=== PATIENT | female | born 1985 | race African-American/Black ===

== ENCOUNTER 2016-10-28 16:24 | Emergency (ER) | payer SELFPAY ==
[~2016-10-28] VITALS: Ht 162.6 cm; Wt 135.0 kg
[2016-10-28 16:25] VITALS: BP 174/104; PULSE 110; RESP 16; TEMP 98.5; O2SAT 98
[2016-10-28] MEDS ORDERED: SODIUM CHLOR 0.9% 1000 ML INJ 1,000 ML IV SCH (17:10)
[2016-10-28] MEDS ORDERED: HYDROmorphone HCL PF 1 MG/ML VIAL IVS ONE (17:15)
[2016-10-28] MEDS ORDERED: PROMETHAZINE INJ 25 MG/ML VIAL IM ONE (17:15)
[2016-10-28] MEDS ORDERED: diphenhydrAMINE HCL 50 MG/ML VIAL IV PUSH ONE ×2 (17:15→19:15)
[2016-10-28 17:34] VITALS: RESP 18; O2SAT 99
--- NOTE | 2016-10-28 17:44 | PD ---
HPI Chief Complaint: Abdominal Pain Time Seen by Provider: 17:40 Travel History International Travel<30 days: No Contact w/Intl Traveler<30days: No Traveled to known affect area: No History of Present Illness HPI 31-year-old female that presents to the ED for evaluation of abdominal pain, nausea vomiting and diarrhea. Per patient she has an extensive history of Crohn 's disease and takes Humira for this. Per patient she gets injections. She is to get infusions and she still has a port. She states that she recently moved to [facility] about 2 weeks ago. Per patient the past 2-3 days she's been having the nausea and vomiting and diarrhea. She has a history of surgery and resection to her bowels having had an ileostomy tube placed after she had an infection to the colon With a colostomy. She states that she has had extensive surgeries including her appendix and gallbladder removed. She has had 2 bowel resections in the past. She states that her bowels are usually more solid than what they are another just water. She states that she's having nausea and vomiting. She chronically takes Dilaudid and Phenergan by mouth but she's not been able to keep it down. She states that she just throws it out. She states that she has no doctor in the area she recently moved. Per patient her pain is 10 out of 10. Mainly in the epigastric area. No recent injuries. No fevers chills or sweats. No recent travel. No new foods. PFSH Past Medical History Anemia: Yes Gastrointestinal Disorders: Yes (Chrons, ileustomy after colostomy reversal) Implanted Vascular Access Dvce: Yes (Rt upper chest) Sleep Apnea: Yes ?: Not LMP: 10/08/16 Past Surgical History Appendectomy: Yes Cholecystectomy: Yes Social History Alcohol Use: No Tobacco Use: No Substance Use: No Allergies-Medications (Allergen,Severity, Reaction): Coded Allergies: Morphine (Verified Allergy, Severe, 10/28/16) Reglan (Verified Allergy, Severe, 10/28/16) Zofran (Verified Allergy, Severe, 10/28/16) Review of Systems Except as stated in HPI: all other systems reviewed are Neg Physical Exam Narrative GENERAL: SKIN: Warm and dry. HEAD: Atraumatic. Normocephalic. EYES: Pupils equal and round. No scleral icterus. No injection or drainage. ENT: No nasal bleeding or discharge. Mucous membranes pink and moist. Tongue is midline. No uvula deviation. NECK: Trachea midline. No JVD. CARDIOVASCULAR: Regular rate and rhythm. No murmurs, S3, S4. RESPIRATORY: No accessory muscle use. Clear to auscultation. Breath sounds equal bilaterally. GASTROINTESTINAL: Abdomen soft, patient has an ileostomy bag on the abdomen noted, very tender to palpation especially on the epigastric area, nondistended. Hepatic and splenic margins not palpable. MUSCULOSKELETAL: Extremities without clubbing, cyanosis, or edema. No obvious deformities. Full range of motion of the upper and lower extremities bilaterally. 2+ pulses bilaterally. NEUROLOGICAL: Awake and alert. No obvious cranial nerve deficits. Motor grossly within normal limits. Five out of 5 muscle strength in the arms and legs. Normal speech. PSYCHIATRIC: Appropriate mood and affect; insight and judgment normal. Data Data Last Documented VS Vital Signs Date Time Temp Pulse Resp B/P Pulse Ox O2 Delivery O2 Flow Rate FiO2 10/28/16 17:35 18 10/28/16 17:34 99 Room Air 10/28/16 16:25 98.5 110 174/104 Orders Complete Blood Count With Diff (10/28/16 17:10) Comprehensive Metabolic Panel (10/28/16 17:10) Lipase (10/28/16 17:10) Lactic Acid (10/28/16 17:10) Prothrombin Time / Inr (Pt) (10/28/16 17:10) Act Partial Throm Time (Ptt) (10/28/16 17:10) Urinalysis - C+S If Indicated (10/28/16 17:10) Iv Access Insert/Monitor (10/28/16 17:10) Ecg Monitoring (10/28/16 17:10) Oximetry (10/28/16 17:10) Sodium Chlor 0.9% 1000 Ml Inj (Ns 1000 M (10/28/16 17:10) Hydromorphone Pf Inj (Dilaudid Pf Inj) (10/28/16 17:15) Ed Urine Pregnancytest Poc (10/28/16 17:10) Promethazine Inj (Phenergan Inj) (10/28/16 17:15) Diphenhydramine Inj (Benadryl Inj) (10/28/16 17:15) Abdomen, Flat & Upright (10/28/16 ) Labs Laboratory Tests Test 7/22/17 7/22/17 17:20 17:25 White Blood Count 9.0 TH/MM3 Red Blood Count 3.71 MIL/MM3 Hemoglobin 9.1 GM/DL Hematocrit 28.3 % Mean Corpuscular Volume 76.2 FL Mean Corpuscular Hemoglobin 24.6 PG Mean Corpuscular Hemoglobin 32.3 % Concent Red Cell Distribution Width 16.8 % Platelet Count 307 TH/MM3 Mean Platelet Volume 8.6 FL Neutrophils (%) (Auto) 70.3 % Lymphocytes (%) (Auto) 20.1 % Monocytes (%) (Auto) 7.5 % Eosinophils (%) (Auto) 1.7 % Basophils (%) (Auto) 0.4 % Neutrophils # (Auto) 6.3 TH/MM3 Lymphocytes # (Auto) 1.8 TH/MM3 Monocytes # (Auto) 0.7 TH/MM3 Eosinophils # (Auto) 0.1 TH/MM3 Basophils # (Auto) 0.0 TH/MM3 CBC Comment DIFF FINAL Differential Comment Prothrombin Time 10.5 SEC Prothromb Time International 1.0 RATIO Ratio Activated Partial 28.2 SEC Thromboplast Time Urine Color YELLOW Urine Turbidity CLEAR Urine pH 5.5 Urine Specific [place] 1.022 Urine Protein NEG mg/dL Urine Glucose (UA) NEG mg/dL Urine Ketones NEG mg/dL Urine Occult Blood NEG Urine Nitrite NEG Urine Bilirubin NEG Urine Urobilinogen LESS THAN 2.0 MG/DL Urine Leukocyte Esterase NEG Urine RBC LESS THAN 1 /hpf Urine WBC LESS THAN 1 /hpf Urine Squamous Epithelial 1 /hpf Cells Urine Mucus FEW /lpf Microscopic Urinalysis Comment CULT NOT INDICATED Sodium Level 141 MEQ/L Potassium Level 3.7 MEQ/L Chloride Level 108 MEQ/L Carbon Dioxide Level 24.8 MEQ/L Anion Gap 8 MEQ/L Blood Urea Nitrogen 6 MG/DL Creatinine 0.68 MG/DL Estimat Glomerular Filtration 121 ML/MIN Rate Random Glucose 107 MG/DL Calcium Level 8.3 MG/DL Total Bilirubin 0.2 MG/DL Aspartate Amino Transf 21 U/L (AST/SGOT) Alanine Aminotransferase 28 U/L (ALT/SGPT) Alkaline Phosphatase 83 U/L Total Protein 7.2 GM/DL Albumin 2.8 GM/DL Lipase 81 U/L Lactic Acid Level 1.6 mmol/L [facility] Medical Decision Making Medical Screen Exam Complete: Yes Emergency Medical Condition: Yes Medical Record Reviewed: Yes Interpretation(s) Last Impressions Abdomen X-Ray 10/28/16 0000 Signed Impressions: Service Date/Time: Sunday, October 28, 2016 18:38 - CONCLUSION: No acute abnormalities. No dilated bowel loops. Nicolas Vela MD CBC & BMP Diagram 10/28/16 17:20 LFTS and lipase WNL UA negative lactic acid WNL Differential Diagnosis Crohn's flareup versus acute abdomen versus obstruction versus gastroenteritis versus sepsis versus ischemia versus gastritis Narrative Course 31-year-old female that presents to the ED for evaluation of abdominal pain, nausea vomiting and diarrhea. Patient was properly examined and was found to have signs and symptoms concerning for possible obstruction versus acute disease. Patient does have a significant history including being on immunosuppressants for her Crohn's disease. At this time I recommend labs and imaging. Patient is in agreement with this plan. Patient was given IV medications and antiemetics. Labs and imaging showed no sign of acute disease. Patient was reassured. She declined CT due to risk of radiation and multiple prior CTs. She will be discharged home with emilee and tootie. Given prescription for phenergan. Follow up with PCP. See ED if worst. Diagnosis Primary Impression: Abdominal pain Qualified Code: R10.84 - Generalized abdominal pain Additional Impression: Gastroenteritis Patient Instructions: General Instructions, Narcotic given in the ED Additional Instructions: Take meds as prescribed. Follow up with PCP. See ED if worsening symptoms. Med/Other Pt SpecificInfo: Prescription(s) given Disposition: DISCHARGE HOME Condition: Stable Gomez Masterson Oct 28, 2016 17:44
[2016-10-28 17:45] LABS: AUTOMATED NEUTROPHIL # 6.3 TH/MM3 (1.8-7.7); BASOPHIL % 0.4 % (0.0-2.0); EOSINOPHIL # 0.1 TH/MM3 (0-0.4); EOSINOPHIL % 1.7 % (0.0-4.0); HEMATOCRIT 28.3 % (35.0-46.0); HEMO FLAGS DIFF FINAL; LYMPH % 20.1 % (9.0-44.0); LYMPHOCYTE # 1.8 TH/MM3 (1.0-4.8); MEAN CELL VOLUME 76.2 FL (80.0-100.0); MEAN CORPUSCULAR HEMOGLOBIN 24.6 PG (27.0-34.0); MEAN CORPUSCULAR HGB CONC 32.3 % (32.0-36.0); MONO % 7.5 % (0.0-8.0); NEUT % 70.3 % (16.0-70.0); PLATELET COUNT 307 TH/MM3 (150-450); RED BLOOD COUNT 3.71 MIL/MM3 (4.00-5.30); RED CELL DISTRIBUTION WIDTH 16.8 % (11.6-17.2)
[2016-10-28 17:52] LABS: APTT (PATIENT) 28.2 SEC (24.3-30.1); PROTHROMBIN TIME - PATIENT 10.5 SEC (9.8-11.6)
[2016-10-28 18:12] LABS: BLOOD, URINE NEG (NEG); COMMENT (UR) CULT NOT INDICATED; CULTURE IF INDICATED CULT NOT INDICATED; GLUCOSE,URINE NEG (NEG); KETONE, URINE NEG (NEG); MUCUS URINE FEW /lpf (OCC); NITRITE,URINE NEG (NEG); PH, URINE 5.5 (5.0-8.5); SQUAMOUS EPITHELIAL CELL URINE 1 /hpf (0-5); URINE COLOR YELLOW (YELLW/STRAW)
[2016-10-28 18:14] LABS: ALT (GPT) 28 U/L (10-53); ANION GAP 8 MEQ/L (5-15); AST (GOT) 21 U/L (15-37); BICARBONATE 24.8 MEQ/L (21.0-32.0); BLOOD UREA NITROGEN 6 MG/DL (7-18); CHLORIDE 108 MEQ/L (98-107); GLOMERULAR FILTRATION RATE 121 ML/MIN (>89); POTASSIUM 3.7 MEQ/L (3.5-5.1); SODIUM (NA) 141 MEQ/L (136-145)
[2016-10-28 18:16] LABS: ALKALINE PHOSPHATASE 83 U/L (45-117); TOTAL BILIRUBIN ADULT 0.2 MG/DL (0.2-1.0)
--- NOTE | 2016-10-28 18:57 | RADRPT ---
EXAM DATE/TIME: 10/28/2016 18:38 [facility] COMPARISON: No previous studies available for comparison. INDICATIONS : Abdominal pain and vomiting. MEDICAL HISTORY : Crohn's disease. SURGICAL HISTORY : Appendectomy. Ileostomy. infusaport. Colon resection. ENCOUNTER: Initial ACUITY: 2 days PAIN SCORE: 10/10 LOCATION: Bilateral Abdomen. FINDINGS: Supine and upright views of the abdomen were performed. Right quadrant ostomy. Postsurgical changes l eft abdomen. The abdominal bowel gas pattern is normal. No air fluid levels are seen. No abnormal m asses, calcifications, or organomegaly is seen. The visualized lower lungs are clear. No evidence o f free intraperitoneal gas. The osseous structures are unremarkable. CONCLUSION: No acute abnormalities. No dilated bowel loops. Nicolas Vela MD on October 28, 2016 at 18:55 Board Certified Radiologist. This report was verified electronically.
[2016-10-28] MEDS ORDERED: DICY10 PO (19:08)
[2016-10-28] MEDS ORDERED: PROM25TA10 PO (19:08)
[2016-10-28] MEDS ORDERED: METR-1 PO (19:08)
[2016-10-28] MEDS ORDERED: HYDROmorphone HCL PF 1 MG/ML VIAL IV PUSH ONE (19:15)
[2016-10-28] MEDS ORDERED: SODIUM CHLORIDE 0.9% FLUSH 10 ML FLUSH IVF PRN (19:15)
[2016-10-28] MEDS ORDERED: FLUC150T PO (19:45)
== END 2016-10-28 20:08 | disposition home or self-care (01) ==
LOC: NEPE 16:24
DX: K50.90 Crohn's disease, unspecified, without complications (principal)
CPT/HCPCS: 74020; 80053; 81001; 83605; 83690; 84703; 85025; 85610; 85730; 96361; 96372; 96374; 96375; 99284; J1170; J1200; J1642; J2550; J7030

== ENCOUNTER 2017-01-30 14:07 | Emergency (ER) | payer BC ==
[~2017-01-30 14:07] MED LIST: DICY10 PO; FLUC150T PO; METR-1 PO; PROM25TA10 PO
[2017-01-30] MEDS ORDERED: IOHEXOL 350 MG/ML 10 ML VIAL (for RAD DIAG) IVCONTRAST ONE (14:08)
[2017-01-30 14:25] VITALS: BP 144/82; PULSE 90; RESP 16; TEMP 98.2; O2SAT 100
--- NOTE | 2017-01-30 14:42 | PD ---
Physical Exam Date Seen by Provider: Jan 30, 2017 Time Seen by Provider: 14:40 Narrative 31-year-old Afro-[place]ian female with history of Crohn's disease with ileostomy since the emergency department with about a week of increased abdominal nausea, vomiting, and ileostomy drainage. Patient states she still urinating. She states she's having more abdominal discomfort and gurgling. Patient was treated with Humira for her Crohn's disease, but this was stopped 4 months ago due to upper respiratory symptoms. Currently not on any medications for her Crohn's. Pain is currently about a 6-7 out of 10. She denies urinary symptoms. She is not . She is allergic to metoclopramide, morphine, and Zofran.. Data Data Last Documented VS Vital Signs Date Time Temp Pulse Resp B/P (MAP) Pulse Ox O2 Delivery O2 Flow Rate FiO2 01/30/17 14:25 98.2 90 16 144/82 (102) 100 MDM Medical Record Reviewed: Yes Supervised Visit with ADAM: Yes Narrative Course Vital signs stable. Patient awaiting bed placement. Condition: Stable Michelet Cid Jan 30, 2017 14:42
[2017-01-30 15:51] LABS: BLOOD, URINE NEG (NEG); COMMENT (UR) CULT NOT INDICATED; CULTURE IF INDICATED CULT NOT INDICATED; GLUCOSE,URINE NEG (NEG); KETONE, URINE NEG (NEG); NITRITE,URINE NEG (NEG); PH, URINE 5.5 (5.0-8.5); SQUAMOUS EPITHELIAL CELL URINE <1 /hpf (0-5); URIC ACID CRYSTALS, URINE OCC /hpf; URINE COLOR YELLOW (YELLW/STRAW)
[2017-01-30] MEDS ORDERED: DILA2TAB2 PO (16:16)
[2017-01-30] MEDS ORDERED: FERR325C PO (16:16)
[2017-01-30] MEDS ORDERED: ZANT150T2 PO (16:16)
[2017-01-30] MEDS ORDERED: SODIUM CHLOR 0.9% 1000 ML INJ 1,000 ML IV SCH (17:16)
[2017-01-30] MEDS ORDERED: SODIUM CHLORIDE 0.9% FLUSH 10 ML FLUSH IV FLUSH PRN (17:30)
[2017-01-30] MEDS ORDERED: PROMETHAZINE HCL 25 MG SUPP RECTAL ONE (17:45)
[2017-01-30] MEDS ORDERED: PROMETHAZINE INJ 25 MG/ML VIAL IM ONE (17:45)
[2017-01-30] MEDS ORDERED: FAMOTIDINE 20 MG/2 ML VIAL IV PUSH ONE (17:45)
[2017-01-30] MEDS ORDERED: HYDROmorphone HCL PF 1 MG/ML VIAL IV PUSH ONE ×2 (17:45→19:15)
--- NOTE | 2017-01-30 17:48 | PD ---
HPI Chief Complaint: GI Complaint Time Seen by Provider: 17:16 Travel History International Travel<30 days: No Contact w/Intl Traveler<30days: No Traveled to known affect area: No History of Present Illness HPI Patient is a 31-year-old female with history of Crohn disease with an ileostomy , presents to emergency room with complaints of increased abdominal pain with nausea, vomiting and increased drainage from her ileostomy bag. Patient reports that she has been sick for the past 4 months with a URI. Patient reports that she does take Humira for her Crohn disease, she has not taken it for the past 4 months due to her cold. She reports that for the past week, she has been feeling nauseous and has been vomiting, reports that for the past 2 days, she has not been able to eat or drink anything or taken her medications which includes Dilaudid and Phenergan. Patient denies any fevers or chills, denies any cough. Patient reports that she has a upper respiratory congestion at this time. Patient with no headache or dizziness. Denies any chest pain or shortness of breath. PFSH Past Medical History Anemia: Yes Gastrointestinal Disorders: Yes (Chrons, ileustomy after colostomy reversal) Implanted Vascular Access Dvce: Yes (Rt upper chest) Sleep Apnea: Yes ?: Not Past Surgical History Appendectomy: Yes Cholecystectomy: Yes Social History Alcohol Use: No Tobacco Use: No Substance Use: No Allergies-Medications (Allergen,Severity, Reaction): Coded Allergies: metoclopramide (Unverified Allergy, Severe, 01/30/17) morphine (Unverified Allergy, Severe, 01/30/17) ondansetron (Unverified Allergy, Severe, 01/30/17) Reported Meds & Prescriptions Reported Meds & Active Scripts Active Phenergan (Promethazine HCl) 25 Mg Tablet 25 Mg PO Q6H PRN Reported Iron (Ferrous Sulfate) 325 Mg Cap 325 Mg PO DAILY Zantac (Ranitidine HCl) 150 Mg Tab 150 Mg PO DAILY Dilaudid (Hydromorphone HCl) 2 Mg Tab 2 Mg PO Q4H PRN Review of Systems General / Constitutional: No: Fever Eyes: No: Visual changes HENT: Positive: Congestion, No: Headaches, Vertigo, Lightheadedness Cardiovascular: No: Chest Pain or Discomfort, Palpitations, Irregular Rhythm, Tachycardia Respiratory: No: Shortness of Breath Gastrointestinal: Positive: Nausea, Vomiting, Diarrhea, Abdominal Pain Genitourinary: No: Dysuria Musculoskeletal: No: Pain Skin: No Rash Neurologic: No: Weakness, Dizziness, Headache Psychiatric: No: Depression Endocrine: No: Polydipsia Hematologic/Lymphatic: No: Easy Bruising Physical Exam Narrative GENERAL: Moderate distress SKIN: Focused skin assessment warm/dry. HEAD: Atraumatic. Normocephalic. EYES: Pupils equal and round. No scleral icterus. No injection or drainage. ENT: No nasal bleeding or discharge. Mucous membranes pink and moist. NECK: Trachea midline. No JVD. CARDIOVASCULAR: Regular rate and rhythm. No murmur appreciated. RESPIRATORY: No accessory muscle use. Clear to auscultation. Breath sounds equal bilaterally. GASTROINTESTINAL: Abdomen soft, tender to upper abdomen, nondistended. Hepatic and splenic margins not palpable. MUSCULOSKELETAL: No obvious deformities. No clubbing. No cyanosis. No edema. NEUROLOGICAL: Awake and alert. No obvious cranial nerve deficits. Motor grossly within normal limits. Normal speech. PSYCHIATRIC: Appropriate mood and affect; insight and judgment normal. Data Data Last Documented VS Vital Signs Date Time Temp Pulse Resp B/P (MAP) Pulse Ox O2 Delivery O2 Flow Rate FiO2 01/30/17 18:58 98.3 95 16 129/69 (89) 100 Room Air Orders Orders Urinalysis - C+S If Indicated (01/30/17 15:23) Complete Blood Count With Diff (01/30/17 17:16) Comprehensive Metabolic Panel (01/30/17 17:16) Lipase (01/30/17 17:16) Prothrombin Time / Inr (Pt) (01/30/17 17:16) Act Partial Throm Time (Ptt) (01/30/17 17:16) Iv Access Insert/Monitor (01/30/17 17:16) Ecg Monitoring (01/30/17 17:16) Oximetry (01/30/17 17:16) NPO (01/30/17 17:16) Sodium Chlor 0.9% 1000 Ml Inj (Ns 1000 M (01/30/17 17:16) Sodium Chloride 0.9% Flush (Ns Flush) (01/30/17 17:30) Ed Urine Pregnancytest Poc (01/30/17 17:16) Hydromorphone Pf Inj (Dilaudid Pf Inj) (01/30/17 17:45) Promethazine Supp (Phenergan Supp) (01/30/17 17:45) Ct Abd/Pel W Iv Contrast(Rout) (01/30/17 17:34) Famotidine Inj (Pepcid Inj) (01/30/17 17:45) Promethazine Inj (Phenergan Inj) (01/30/17 17:45) Chest, Single Ap (01/30/17 17:44) Influenzae A/B Antigen (01/30/17 17:44) Hydromorphone Pf Inj (Dilaudid Pf Inj) (01/30/17 19:15) Sodium Chlor 0.9% 1000 Ml Inj (Ns 1000 M (01/30/17 19:15) Hydromorphone Pf Inj (Dilaudid Pf Inj) (01/30/17 19:30) Promethazine Inj (Phenergan Inj) (01/30/17 20:00) Iohexol 350 Inj (Omnipaque 350 Inj) (01/30/17 14:08) Labs Laboratory Tests Test 01/30/17 15:25 01/30/17 17:30 Urine Color YELLOW Urine Turbidity CLEAR Urine pH 5.5 Urine Specific [place] 1.026 Urine Protein NEG mg/dL Urine Glucose (UA) NEG mg/dL Urine Ketones NEG mg/dL Urine Occult Blood NEG Urine Nitrite NEG Urine Bilirubin NEG Urine Urobilinogen LESS THAN 2.0 MG/DL Urine Leukocyte Esterase NEG Urine RBC 1 /hpf Urine WBC 5 /hpf Urine Squamous Epithelial Cells <1 /hpf Urine Uric Acid Crystals OCC /hpf Microscopic Urinalysis Comment CULT NOT INDICATED White Blood Count 10.6 TH/MM3 Red Blood Count 4.39 MIL/MM3 Hemoglobin 9.7 GM/DL Hematocrit 31.4 % Mean Corpuscular Volume 71.7 FL Mean Corpuscular Hemoglobin 22.2 PG Mean Corpuscular Hemoglobin Concent 31.0 % Red Cell Distribution Width 17.2 % Platelet Count 318 TH/MM3 Mean Platelet Volume 8.7 FL Neutrophils (%) (Auto) 62.8 % Lymphocytes (%) (Auto) 24.2 % Monocytes (%) (Auto) 10.7 % Eosinophils (%) (Auto) 2.0 % Basophils (%) (Auto) 0.3 % Neutrophils # (Auto) 6.7 TH/MM3 Lymphocytes # (Auto) 2.6 TH/MM3 Monocytes # (Auto) 1.1 TH/MM3 Eosinophils # (Auto) 0.2 TH/MM3 Basophils # (Auto) 0.0 TH/MM3 CBC Comment DIFF FINAL Differential Comment Prothrombin Time 10.9 SEC Prothromb Time International Ratio 1.0 RATIO Activated Partial Thromboplast Time 31.2 SEC Blood Urea Nitrogen 11 MG/DL Creatinine 0.55 MG/DL Random Glucose 72 MG/DL Total Protein 7.2 GM/DL Albumin 2.9 GM/DL Calcium Level 8.3 MG/DL Alkaline Phosphatase 76 U/L Aspartate Amino Transf (AST/SGOT) 9 U/L Alanine Aminotransferase (ALT/SGPT) 18 U/L Total Bilirubin 0.2 MG/DL Sodium Level 137 MEQ/L Potassium Level 3.7 MEQ/L Chloride Level 105 MEQ/L Carbon Dioxide Level 25.6 MEQ/L Anion Gap 6 MEQ/L Estimat Glomerular Filtration Rate 154 ML/MIN Lipase 101 U/L MDM Medical Decision Making Medical Screen Exam Complete: Yes Emergency Medical Condition: Yes Medical Record Reviewed: Yes Interpretation(s) Vital Signs Date Time Temp Pulse Resp B/P (MAP) Pulse Ox O2 Delivery O2 Flow Rate FiO2 01/30/17 14:25 98.2 90 16 144/82 (102) 100 Differential Diagnosis Differential includes gastritis, gastroenteritis, Crohn's exacerbation, URI, acute cholecystitis, electrolyte abnormality Narrative Course Patient is a 31-year-old female presents to emergency room with complaints of upper abdominal pain with nausea and vomiting, symptoms have been ongoing for the past week, they had progressive the past 2 days. Patient has been unable to eat or drink anything for the past 2 days, she has been unable to tolerate her antiemetics as well as her narcotic pain medications. Her port was accessed with her permission. CBC, CMP, UA ordered. X-ray of the chest was ordered to rule out free air, Ct abdomen and pelvis ordered to further evaluate for abdominal pain. IVF as well as pepcid, dilaudid (which she takes on a daily basis), IM phenergen ordered. Will monitor patient on a concrete grinder operator. CBC & BMP Diagram 01/30/17 17:30 Total Protein 7.2, Albumin 2.9 L, Calcium Level 8.3 L, Alkaline Phosphatase 76, Aspartate Amino Transf (AST/SGOT) 9 L, Alanine Aminotransferase (ALT/SGPT) 18, Total Bilirubin 0.2 Last Impressions Chest X-Ray 01/30/17 5938 Signed Impressions: Service Date/Time: Monday, January 30, 2017 18:41 - CONCLUSION: The lungs are clear. Tez Moore MD Ct abdomen and pelvis: CONCLUSION: 1. Bilateral ovarian cysts. 2. Left lung base nodule with surrounding scar and follow up is suggested with noncontrast chest CT in 6 months. 3. There is a mass that contains fat and possibly hemorrhage within a left upper quadrant most likely originating from the left adrenal gland could potentially be an exophytic complicated myelolipoma. Follow up is suggested with abdominal MRI in 6 months with intravenous contrast. Patient was reevaluated, patient is feeling much better at this time. I reviewed all labs and all studies as well as all incidental findings with patient in detail. Patient understands importance of following up with her bobbin disker as well as her primary care doctor, a copy of her labs and studies will be given to her at discharge. I did offer patient an MRI of her abdomen with IV contrast today, patient prefers to have this study obtained as outpatient as she is anxious to be discharged. Signs and symptoms of an acute abdomen was reviewed with patient in detail. She will return to the emergency room as needed or if symptoms return. Diagnosis Primary Impression: Abdominal pain Qualified Codes: R10.10 - Upper abdominal pain, unspecified Additional Impressions: Nausea & vomiting Qualified Codes: R11.2 - Nausea with vomiting, unspecified Ovarian cyst Qualified Codes: N83.201 - Unspecified ovarian cyst, right side; N83.202 - Unspecified ovarian cyst, left side Lung nodule possible complicated myelolipoma Patient Instructions: Narcotic given in the ED, General Instructions Additional Instructions: Please provide patient with a copy of their lab work and studies at discharge* * Please follow up with your primary care doctor in 1-2 days Return to the ER if symptoms worsen or progress Return to the ER as needed Please follow up with your bobbin disker as soon as possible Please bring a copy of your CT report with you to your doctor's office as you will need to follow up on all incidental findings reviewed with you today and you will need follow up imaging Disposition: 01 DISCHARGE HOME Condition: Stable Michelle Riggs DO Jan 30, 2017 17:48
[2017-01-30 17:54] VITALS: O2SAT 98
--- NOTE | 2017-01-30 18:07 | RADRPT ---
EXAM DATE/TIME: 01/30/2017 18:41 [facility] COMPARISON: No previous studies available for comparison. INDICATIONS : Free air. Abdomen pain. MEDICAL HISTORY : Crohn's disease. SURGICAL HISTORY : Appendectomy. Ileostomy. infusaport. Colon resection. ENCOUNTER: Initial ACUITY: 2 days PAIN SCORE: 8/10 LOCATION: Bilateral upper quadrant FINDINGS: A single view of the chest demonstrates the lungs to be symmetrically aerated without evidence of mas s, infiltrate or effusion. The cardiomediastinal contours are unremarkable. Osseous structures are intact. [id number] catheter tip in the distal superior vena cava. CONCLUSION: The lungs are clear. Tez Moore MD on January 30, 2017 at 18:05 Board Certified Radiologist. This report was verified electronically.
[2017-01-30 18:14] LABS: AUTOMATED NEUTROPHIL # 6.7 TH/MM3 (1.8-7.7); BASOPHIL % 0.3 % (0.0-2.0); EOSINOPHIL # 0.2 TH/MM3 (0-0.4); HEMATOCRIT 31.4 % (35.0-46.0); HEMO FLAGS DIFF FINAL; LYMPH % 24.2 % (9.0-44.0); LYMPHOCYTE # 2.6 TH/MM3 (1.0-4.8); MEAN CELL VOLUME 71.7 FL (80.0-100.0); MEAN CORPUSCULAR HEMOGLOBIN 22.2 PG (27.0-34.0); MONO % 10.7 % (0.0-8.0); NEUT % 62.8 % (16.0-70.0); PLATELET COUNT 318 TH/MM3 (150-450); RED BLOOD COUNT 4.39 MIL/MM3 (4.00-5.30); RED CELL DISTRIBUTION WIDTH 17.2 % (11.6-17.2); WHITE BLOOD COUNT 10.6 TH/MM3 (4.0-11.0)
[2017-01-30 18:20] LABS: APTT (PATIENT) 31.2 SEC (24.3-30.1); PROTHROMBIN TIME - PATIENT 10.9 SEC (9.8-11.6)
[2017-01-30 18:33] LABS: ALT (GPT) 18 U/L (10-53); ANION GAP 6 MEQ/L (5-15); AST (GOT) 9 U/L (15-37); BICARBONATE 25.6 MEQ/L (21.0-32.0); BLOOD UREA NITROGEN 11 MG/DL (7-18); CHLORIDE 105 MEQ/L (98-107); GLOMERULAR FILTRATION RATE 154 ML/MIN (>89); POTASSIUM 3.7 MEQ/L (3.5-5.1); SODIUM (NA) 137 MEQ/L (136-145)
[2017-01-30 18:34] LABS: ALKALINE PHOSPHATASE 76 U/L (45-117); TOTAL BILIRUBIN ADULT 0.2 MG/DL (0.2-1.0)
[2017-01-30 18:58] VITALS: BP 129/69; PULSE 95; RESP 16; TEMP 98.3; O2SAT 100
[2017-01-30] MEDS ORDERED: SODIUM CHLOR 0.9% 1000 ML INJ 1,000 ML IV ONE (19:15)
[2017-01-30] MEDS ORDERED: HYDROmorphone HCL PF 2 MG/ML VIAL IV PUSH ONE (19:30)
[2017-01-30] MEDS ORDERED: PROMETHAZINE INJ 25 MG/ML VIAL IV-CENTRAL ONE (20:00)
--- NOTE | 2017-01-30 20:51 | RADRPT ---
EXAM DATE/TIME: 01/30/2017 20:07 [facility] COMPARISON: No previous studies available for comparison. INDICATIONS : Patient complains of abdominal pain, nausea and vomitting. IV CONTRAST: 95 cc Omnipaque 350 (iohexol) IV ORAL CONTRAST: No oral contrast ingested. RADIATION DOSE: 20.40 CTDIvol (mGy) MEDICAL HISTORY : Crohn's disease. SURGICAL HISTORY : Appendectomy. Cholecystectomy.ileostomy ENCOUNTER: Initial ACUITY: 2 days PAIN SCALE: 8/10 LOCATION: abdomen TECHNIQUE: Volumetric scanning of the abdomen and pelvis was performed. Using automated exposure control and ad justment of the mA and/or kV according to patient size, radiation dose was kept as low as reasonably achievable to obtain optimal diagnostic quality images. DICOM format image data is available electro nically for review and comparison. FINDINGS: CT Abdomen: The liver, spleen, pancreas, kidneys, right adrenal are unremarkable. Adjacent to the lef t adrenal gland there is a mainly cystic mass measures 2.5 cm in size. The exact origin is not certai n, however appears to be separate from the adrenal gland has some degree of fat within it. There is a layer of increased density in the dependent portion and fat on the nondependent portion. This could potentially be a hemorrhagic myelolipoma coming off the inferior limb of the left adrenal gland. Ther e is no evidence for any appreciable pathological adenopathy, free fluid, or bowel obstruction. Ther e is scarring in the left lung base part of it appears nodular and measures 1.3 cm in size and follow up is suggested for this small nodule. CT pelvis: There is an approximate 3.6 cm cyst in the right ovary with an approximate 2.2 cm cyst in the left ovary. Ostomy site is seen on the right. CONCLUSION: 1. Bilateral ovarian cysts. 2. Left lung base nodule with surrounding scar and follow up is suggested with noncontrast chest CT i n 6 months. 3. There is a mass that contains fat and possibly hemorrhage within a left upper quadrant most likely originating from the left adrenal gland could potentially be an exophytic complicated myelolipoma. F ollow up is suggested with abdominal MRI in 6 months with intravenous contrast. Tiara Alexander MD on January 30, 2017 at 20:43 Board Certified Radiologist. This report was verified electronically.
== END 2017-01-30 22:00 | disposition home or self-care (01) ==
LOC: NEPD 14:07
DX: K50.90 Crohn's disease, unspecified, without complications (principal); N83.201 Unspecified ovarian cyst, right side; N83.202 Unspecified ovarian cyst, left side; G47.30 Sleep apnea, unspecified; R91.1 Solitary pulmonary nodule; Z93.2 Ileostomy status
CPT/HCPCS: 71010; 74177; 80053; 81001; 83690; 84703; 85025; 85610; 85730; 96361; 96372; 96374; 96375; 96376; 99285; J1170; J1642; J2550; J7030; Q9967

== ENCOUNTER 2017-03-04 01:29 | Emergency (ER) | payer BC ==
[~2017-03-04] VITALS: Ht 157.5 cm; Wt 140.0 kg
[~2017-03-04 01:29] MED LIST changes: -DICY10 PO; +DILA2TAB4 PO; +FERR325C PO; -FLUC150T PO; -METR-1 PO; +ZANT150T2 PO
[2017-03-04 01:32] VITALS: BP 138/89; PULSE 88; RESP 20; TEMP 98.8; O2SAT 98
--- NOTE | 2017-03-04 03:28 | PD ---
HPI Chief Complaint: GI Complaint Time Seen by Provider: 03:06 Travel History International Travel<30 days: No Contact w/Intl Traveler<30days: No Traveled to known affect area: No History of Present Illness HPI 31 yo f presents to the Ed with a cc of abdominal pain. She has a long history of Crohn's disease, numerous abdominal surgeries and currently has an ileostomy bag. She states that over the past few days she has had increasing pain, nausea , vomiting and diarrhea with associated sweating and dizziness. She denies SOB or CP. She has not noticed blood or black tarry stools. She is not sexually active and has not noticed any abnormal vaginal discharge. No new medications. No changes in diet. Patient recently moved from [place] and has not yet established primary care nor a manager metrology in the area. PFSH Past Medical History Anemia: Yes Gastrointestinal Disorders: Yes (Chrons, ileustomy after colostomy reversal) Implanted Vascular Access Dvce: Yes (Rt upper chest) Sleep Apnea: Yes ?: Not LMP: 02/13/17 Past Surgical History Appendectomy: Yes Cholecystectomy: Yes Social History Alcohol Use: No Tobacco Use: No Substance Use: No Allergies-Medications (Allergen,Severity, Reaction): Coded Allergies: metoclopramide (Unverified Allergy, Severe, 03/04/17) morphine (Unverified Allergy, Severe, 03/04/17) ondansetron (Unverified Allergy, Severe, 03/04/17) Reported Meds & Prescriptions Reported Meds & Active Scripts Active Phenergan (Promethazine HCl) 25 Mg Tablet 25 Mg PO Q6H PRN Reported Zantac (Ranitidine HCl) 150 Mg Tab 150 Mg PO DAILY Dilaudid (Hydromorphone HCl) 2 Mg Tab 2 Mg PO Q4H PRN Review of Systems Except as stated in HPI: all other systems reviewed are Neg Physical Exam Narrative GENERAL: patient is laying in bed, comfortable, no acute distress. SKIN: Warm and dry. HEAD: Atraumatic. Normocephalic. EYES: Pupils equal and round. No scleral icterus. No injection or drainage. ENT: No nasal bleeding or discharge. Mucous membranes pink and moist. NECK: Trachea midline. No JVD. CARDIOVASCULAR: Regular rate and rhythm. No tachycardia. RESPIRATORY: No accessory muscle use. Clear to auscultation. Breath sounds equal bilaterally. No tachypnea. GASTROINTESTINAL: Abdomen soft, diffusely minimally tender to palpation, nondistended. Bowel sounds noted in all quadrants. Ileostomy bag in place. Hepatic and splenic margins not palpable. Multiple surgical scars seen. All of which are well-healed. MUSCULOSKELETAL: Extremities without clubbing, cyanosis, or edema. No obvious deformities. NEUROLOGICAL: Awake and alert. No obvious cranial nerve deficits. Motor grossly within normal limits. Five out of 5 muscle strength in the arms and legs. Normal speech. PSYCHIATRIC: Appropriate mood and affect; insight and judgment normal. Data Data Last Documented VS Vital Signs Date Time Temp Pulse Resp B/P (MAP) Pulse Ox O2 Delivery O2 Flow Rate FiO2 03/04/17 04:54 03/04/17 03:51 92 18 99 Room Air 03/04/17 01:32 98.8 Orders Orders Urinalysis - C+S If Indicated (03/04/17 03:06) Ed Urine Pregnancytest Poc (03/04/17 03:06) Complete Blood Count With Diff (03/04/17 03:29) Comprehensive Metabolic Panel (03/04/17 03:29) Lipase (03/04/17 03:29) Iv Access Insert/Monitor (03/04/17 03:29) Ecg Monitoring (03/04/17 03:29) Oximetry (03/04/17 03:29) Sodium Chloride 0.9% Flush (Ns Flush) (03/04/17 03:30) Hydromorphone Pf Inj (Dilaudid Pf Inj) (03/04/17 03:45) Promethazine Inj (Phenergan Inj) (03/04/17 03:45) Diphenhydramine (Benadryl) (03/04/17 04:15) Heparin Central Flush (Heparin Central F (03/04/17 04:45) Labs Laboratory Tests Test 03/04/17 03:16 03/04/17 03:45 Urine Color YELLOW Urine Turbidity CLEAR Urine pH 5.0 Urine Specific [place] 1.024 Urine Protein NEG mg/dL Urine Glucose (UA) NEG mg/dL Urine Ketones NEG mg/dL Urine Occult Blood NEG Urine Nitrite NEG Urine Bilirubin NEG Urine Urobilinogen LESS THAN 2.0 MG/DL Urine Leukocyte Esterase NEG Urine RBC 1 /hpf Urine WBC LESS THAN 1 /hpf Urine Squamous Epithelial Cells 3 /hpf Urine Mucus FEW /lpf Microscopic Urinalysis Comment CULT NOT INDICATED White Blood Count 7.7 TH/MM3 Red Blood Count 4.08 MIL/MM3 Hemoglobin 9.2 GM/DL Hematocrit 29.0 % Mean Corpuscular Volume 71.2 FL Mean Corpuscular Hemoglobin 22.5 PG Mean Corpuscular Hemoglobin Concent 31.6 % Red Cell Distribution Width 17.9 % Platelet Count 276 TH/MM3 Mean Platelet Volume 8.4 FL Neutrophils (%) (Auto) 62.3 % Lymphocytes (%) (Auto) 25.2 % Monocytes (%) (Auto) 10.6 % Eosinophils (%) (Auto) 1.3 % Basophils (%) (Auto) 0.6 % Neutrophils # (Auto) 4.8 TH/MM3 Lymphocytes # (Auto) 2.0 TH/MM3 Monocytes # (Auto) 0.8 TH/MM3 Eosinophils # (Auto) 0.1 TH/MM3 Basophils # (Auto) 0.0 TH/MM3 CBC Comment DIFF FINAL Differential Comment Blood Urea Nitrogen 9 MG/DL Creatinine 0.70 MG/DL Random Glucose 99 MG/DL Total Protein 7.4 GM/DL Albumin 3.0 GM/DL Calcium Level 8.5 MG/DL Alkaline Phosphatase 83 U/L Aspartate Amino Transf (AST/SGOT) 15 U/L Alanine Aminotransferase (ALT/SGPT) 25 U/L Total Bilirubin 0.2 MG/DL Sodium Level 141 MEQ/L Potassium Level 3.4 MEQ/L Chloride Level 107 MEQ/L Carbon Dioxide Level 24.9 MEQ/L Anion Gap 9 MEQ/L Estimat Glomerular Filtration Rate 117 ML/MIN Lipase 71 U/L [facility] Medical Decision Making Medical Screen Exam Complete: Yes Emergency Medical Condition: Yes Differential Diagnosis Crohn's disease flair, Enteritis, SBO, Ileus, acute on chronic abdominal pain. Narrative Course Patient roomed emergency department, she appears well and in no distress, multiple allergies she was given Dilaudid as well as Phenergan. She then started complaining that after her port was tapped she was starting to feel itchy all over she thought from the bandage opts covering the [place] needle. The patient stated that she needed Benadryl for the itching. Hydroureter dose for her by mouth. She states that she was still feeling nauseous and didn't think she would be able to take it. Unfortunately was interrupted by the care of the other patients and by the time I was able to revisit her and she states that she told me she was dissatisfied with the quality of care she was receiving and wanted to leave AGAINST MEDICAL ADVICE. Is informed by nursing that she did not want to take the Benadryl orally and thought that she needed an IV dose. I discussed with her that I had a CAT scan of her abdomen ordered and highly recommended that she have one given her history to rule out severe pathology including obstruction abscess or perforation. Patient verbalized understanding to this but still wished to leave AGAINST MEDICAL ADVICE. I discussed that if she did have severe pathology could be life-threatening she verbalized understanding and agreement was to go home. I also discussed with her the risk of permanent disability she verbalized understanding and acceptance of this risk as well. She did sign formal AMA papers, her port was discontinued after heparinization. She was urged to follow up with manager metrology. She was welcome to return to the emergency department any time should she feel the need for reevaluation. Diagnosis Primary Impression: Abdominal pain Patient Instructions: Abdominal Pain (ED), General Instructions Disposition: 07 AGAINST MEDICAL ADVICE Marcio Wren MD Mar 04, 2017 03:28
[2017-03-04] MEDS ORDERED: SODIUM CHLORIDE 0.9% FLUSH 10 ML FLUSH IV FLUSH PRN (03:30)
[2017-03-04] MEDS ORDERED: HYDROmorphone HCL PF 1 MG/ML VIAL IV PUSH ONE (03:45)
[2017-03-04] MEDS ORDERED: PROMETHAZINE INJ 25 MG/ML VIAL IM ONE (03:45)
[2017-03-04 03:48] VITALS: RESP 18; O2SAT 99
[2017-03-04 03:49] LABS: BLOOD, URINE NEG (NEG); COMMENT (UR) CULT NOT INDICATED; CULTURE IF INDICATED CULT NOT INDICATED; GLUCOSE,URINE NEG (NEG); KETONE, URINE NEG (NEG); MUCUS URINE FEW /lpf (OCC); NITRITE,URINE NEG (NEG); SQUAMOUS EPITHELIAL CELL URINE 3 /hpf (0-5); URINE COLOR YELLOW (YELLW/STRAW)
[2017-03-04 03:51] VITALS: BP 142/89; PULSE 92; RESP 18; O2SAT 99
[2017-03-04 03:55] LABS: AUTOMATED NEUTROPHIL # 4.8 TH/MM3 (1.8-7.7); BASOPHIL % 0.6 % (0.0-2.0); EOSINOPHIL # 0.1 TH/MM3 (0-0.4); EOSINOPHIL % 1.3 % (0.0-4.0); HEMO FLAGS DIFF FINAL; LYMPH % 25.2 % (9.0-44.0); MEAN CELL VOLUME 71.2 FL (80.0-100.0); MEAN CORPUSCULAR HEMOGLOBIN 22.5 PG (27.0-34.0); MEAN CORPUSCULAR HGB CONC 31.6 % (32.0-36.0); MONO % 10.6 % (0.0-8.0); NEUT % 62.3 % (16.0-70.0); PLATELET COUNT 276 TH/MM3 (150-450); RED BLOOD COUNT 4.08 MIL/MM3 (4.00-5.30); RED CELL DISTRIBUTION WIDTH 17.9 % (11.6-17.2); WHITE BLOOD COUNT 7.7 TH/MM3 (4.0-11.0)
[2017-03-04] MEDS: diphenhydrAMINE HCL 50 MG CAP PO ONE ×2 (04:05→04:15)
[2017-03-04 04:29] LABS: ALT (GPT) 25 U/L (10-53); ANION GAP 9 MEQ/L (5-15); AST (GOT) 15 U/L (15-37); BICARBONATE 24.9 MEQ/L (21.0-32.0); BLOOD UREA NITROGEN 9 MG/DL (7-18); CHLORIDE 107 MEQ/L (98-107); GLOMERULAR FILTRATION RATE 117 ML/MIN (>89); POTASSIUM 3.4 MEQ/L (3.5-5.1); SODIUM (NA) 141 MEQ/L (136-145)
[2017-03-04 04:32] LABS: ALKALINE PHOSPHATASE 83 U/L (45-117); TOTAL BILIRUBIN ADULT 0.2 MG/DL (0.2-1.0)
== END 2017-03-04 04:58 | disposition left against medical advice (07) ==
LOC: NEPE 01:29
DX: R10.9 Unspecified abdominal pain (principal); Z93.2 Ileostomy status
CPT/HCPCS: 80053; 81001; 83690; 84703; 85025; 96372; 96374; 96375; 99285; J1170; J1642; J2550; Q0163

== ENCOUNTER 2017-03-08 10:47 | Emergency (ER) | payer BC ==
[~2017-03-08] VITALS: Ht 157.5 cm; Wt 140.0 kg
[~2017-03-08 10:47] MED LIST changes: -FERR325C PO
[2017-03-08 10:50] VITALS: BP 145/90; PULSE 95; RESP 14; TEMP 98; O2SAT 98
[2017-03-08 11:08] VITALS: BP 152/89; PULSE 94; RESP 18; O2SAT 99
[2017-03-08] MEDS ORDERED: HUMI40KI SQ (11:10)
[2017-03-08] MEDS ORDERED: SODIUM CHLOR 0.9% 1000 ML INJ 1,000 ML IV SCH (11:16)
--- NOTE | 2017-03-08 11:27 | PD ---
HPI Chief Complaint: abdominal pain Time Seen by Provider: 11:23 Travel History International Travel<30 days: No Contact w/Intl Traveler<30days: No Traveled to known affect area: No History of Present Illness HPI Examined in the presence of a female nurse at all times. 31-year-old female history of Crohn's disease presents for evaluation of abdominal pain. Symptoms started 3 days ago. She describes it as a sharp constant pain primarily epigastric region of the abdomen. No aggravating or relieving factors. She is prescribed Dilaudid at home but she has been vomiting and having difficulty keeping her Dilaudid down. She reports nausea, vomiting as well as loose stools through her ileostomy. She denies flank pain, objective fevers but she has had occasional chills. She is prescribed Humira but has not taken in several months secondary to upper respiratory symptoms. She was prescribed an antibiotic for upper respiratory infection last month but she continues to have a productive cough. 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 The patient was seen here in January with similar symptoms as well as 4 days ago with similar symptoms. She left [place] prior to CT imaging. She has no other complaints at this time. PFSH Past Medical History Anemia: Yes Diabetes: No Gastrointestinal Disorders: Yes (Chrons, ileustomy after colostomy reversal) Implanted Vascular Access Dvce: Yes (Rt upper chest) Sleep Apnea: Yes Tetanus Vaccination: > 5 Years Influenza Vaccination: No ?: Not LMP: 02/11/17 Past Surgical History Appendectomy: Yes Cholecystectomy: Yes Social History Alcohol Use: No Tobacco Use: No Substance Use: No Allergies-Medications (Allergen,Severity, Reaction): Coded Allergies: metoclopramide (Unverified Allergy, Severe, 03/08/17) morphine (Unverified Allergy, Severe, 03/08/17) ondansetron (Unverified Allergy, Severe, 03/08/17) Reported Meds & Prescriptions Reported Meds & Active Scripts Active Phenergan (Promethazine HCl) 25 Mg Tablet 25 Mg PO Q6H PRN Reported Humira 2-Pack Inj (Adalimumab 2-Pack Inj) 40 Mg/0.8 Ml Syr 40 Mg SQ Q14D Zantac (Ranitidine HCl) 150 Mg Tab 150 Mg PO DAILY Dilaudid (Hydromorphone HCl) 2 Mg Tab 2 Mg PO Q4H PRN Review of Systems Except as stated in HPI: all other systems reviewed are Neg Physical Exam Narrative Examined in the presence of a female nurse GENERAL: Well-developed well-nourished female in no acute distress SKIN: Warm and dry. HEAD: Atraumatic. Normocephalic. EYES: Pupils equal and round. No scleral icterus. No injection or drainage. ENT: No nasal bleeding or discharge. Mucous membranes pink and moist. NECK: Trachea midline. No JVD. CARDIOVASCULAR: Regular rate and rhythm. No murmur appreciated. RESPIRATORY: No accessory muscle use. Clear to auscultation. Breath sounds equal bilaterally. No crackles no wheezing or rhonchi GASTROINTESTINAL: Abdomen soft, generalized tenderness to palpation without guarding. Abdominal surgical scars noted. Ileostomy bag with brown stool present. No CVA tenderness. MUSCULOSKELETAL: No obvious deformities. No clubbing. No cyanosis. No edema. NEUROLOGICAL: Awake and alert. No obvious cranial nerve deficits. Motor grossly within normal limits. Normal speech. PSYCHIATRIC: Appropriate mood and affect; insight and judgment normal. Data Data Last Documented VS Vital Signs Date Time Temp Pulse Resp B/P (MAP) Pulse Ox O2 Delivery O2 Flow Rate FiO2 03/08/17 11:08 94 18 152/89 (110) 99 Room Air 03/08/17 10:50 98.0 Orders Orders Complete Blood Count With Diff (03/08/17 11:16) Comprehensive Metabolic Panel (03/08/17 11:16) Lipase (03/08/17 11:16) Urinalysis - C+S If Indicated (03/08/17 11:16) Ct Abd/Pel W Iv Contrast(Rout) (03/08/17 11:16) Iv Access Insert/Monitor (03/08/17 11:16) Ecg Monitoring (03/08/17 11:16) Oximetry (03/08/17 11:16) Sodium Chlor 0.9% 1000 Ml Inj (Ns 1000 M (03/08/17 11:16) Sodium Chloride 0.9% Flush (Ns Flush) (03/08/17 11:30) Ed Urine Pregnancytest Poc (03/08/17 11:16) Hydromorphone Pf Inj (Dilaudid Pf Inj) (03/08/17 11:30) Promethazine Inj (Phenergan Inj) (03/08/17 11:30) Chest, Single Ap (03/08/17 ) Promethazine (Phenergan) (03/08/17 12:45) Diphenhydramine (Benadryl) (03/08/17 12:45) Heparin Central Flush (Heparin Central F (03/08/17 14:00) Ed Discharge Order (03/08/17 14:26) Labs Laboratory Tests Test 03/08/17 11:10 03/08/17 12:05 Urine Color YELLOW Urine Turbidity CLEAR Urine pH 5.5 Urine Specific [place] 1.027 Urine Protein NEG mg/dL Urine Glucose (UA) NEG mg/dL Urine Ketones NEG mg/dL Urine Occult Blood NEG Urine Nitrite NEG Urine Bilirubin NEG Urine Urobilinogen LESS THAN 2.0 MG/DL Urine Leukocyte Esterase NEG Urine RBC LESS THAN 1 /hpf Urine WBC 1 /hpf Urine Squamous Epithelial Cells 1 /hpf Urine Mucus FEW /lpf Microscopic Urinalysis Comment CULT NOT INDICATED White Blood Count 6.1 TH/MM3 Red Blood Count 3.54 MIL/MM3 Hemoglobin 7.9 GM/DL Hematocrit 25.7 % Mean Corpuscular Volume 72.4 FL Mean Corpuscular Hemoglobin 22.2 PG Mean Corpuscular Hemoglobin Concent 30.7 % Red Cell Distribution Width 18.1 % Platelet Count 267 TH/MM3 Mean Platelet Volume 8.4 FL Neutrophils (%) (Auto) 51.8 % Lymphocytes (%) (Auto) 30.7 % Monocytes (%) (Auto) 14.9 % Eosinophils (%) (Auto) 2.0 % Basophils (%) (Auto) 0.6 % Neutrophils # (Auto) 3.1 TH/MM3 Lymphocytes # (Auto) 1.9 TH/MM3 Monocytes # (Auto) 0.9 TH/MM3 Eosinophils # (Auto) 0.1 TH/MM3 Basophils # (Auto) 0.0 TH/MM3 CBC Comment DIFF FINAL Differential Comment Blood Urea Nitrogen 9 MG/DL Creatinine 0.52 MG/DL Random Glucose 80 MG/DL Total Protein 7.1 GM/DL Albumin 2.8 GM/DL Calcium Level 8.0 MG/DL Alkaline Phosphatase 83 U/L Aspartate Amino Transf (AST/SGOT) 17 U/L Alanine Aminotransferase (ALT/SGPT) 23 U/L Total Bilirubin 0.2 MG/DL Sodium Level 140 MEQ/L Potassium Level 3.9 MEQ/L Chloride Level 108 MEQ/L Carbon Dioxide Level 23.6 MEQ/L Anion Gap 8 MEQ/L Estimat Glomerular Filtration Rate 164 ML/MIN Lipase 74 U/L [facility] Medical Decision Making Medical Screen Exam Complete: Yes Emergency Medical Condition: Yes Medical Record Reviewed: Yes Differential Diagnosis Exacerbation of Crohn's disease, obstruction, ileus, gastroenteritis, colitis, diverticulitis Narrative Course The patient was placed on ECG monitoring pulse oximetry. Plan is for lab work, IV fluids, CT of the abdomen and pelvis, chest x-ray. She has allergies to Reglan, morphine, Zofran. She will be given Dilaudid, Phenergan for symptom control. Lab work is been reviewed. Hemoglobin 7.9, microcytic, slightly lower than previous hemoglobin levels on records, no evidence of acute bleeding, she has a history of iron deficiency anemia and has had issues taking her iron supplementation. When the patient was brought to the CT room she was on a phone call and the CT was unable to be performed and she was brought back to her room. Therefore there is a delay in the CT results. The patient was again sent to CT for imaging but there was an issue flushing the port and the patient was brought back to her room. The nurse fix the issue and the patient is now refusing CT imaging. She wants to preserve her port access and she is also refusing any peripheral IV insertion. She understands that she is leaving AGAINST MEDICAL ADVICE as the CT imaging was not complete and there is no way to rule out any acute surgical issue. She understands return at any time if she changes her mind. She is strongly encouraged to establish care with a local supervisor ore dressing as well as primary care physician. AMA: The risks of leaving against medical advice without further evaluation treatment were discussed with the patient. These risks include obstruction, sepsis, dehydration, . The patient indicated understanding of these risks and appeared to have the capacity to make this decision. Diagnosis Primary Impression: Abdominal pain Qualified Codes: R10.9 - Unspecified abdominal pain Referrals: Phylicia Elizondo MD Primary Care Physician Additional Instructions: As discussed, follow-up closely with a primary care physician as well as a supervisor ore dressing such as Dr. Elizondo. Return for any emergent medical conditions. Med/Other Pt SpecificInfo: No Change to Meds Disposition: 07 AGAINST MEDICAL ADVICE Condition: Stable Ace Lange. PA Mar 08, 2017 11:27
[2017-03-08] MEDS ORDERED: SODIUM CHLORIDE 0.9% FLUSH 10 ML FLUSH IV FLUSH PRN (11:30)
[2017-03-08] MEDS ORDERED: HYDROmorphone HCL PF 1 MG/ML VIAL IV PUSH ONE (11:30)
[2017-03-08] MEDS ORDERED: PROMETHAZINE INJ 25 MG/ML VIAL IM ONE (11:30)
--- NOTE | 2017-03-08 11:53 | RADRPT ---
EXAM DATE/TIME: 03/08/2017 11:30 [facility] COMPARISON: CHEST SINGLE AP, January 30, 2017, 18:41. INDICATIONS : Nausea with vomiting x4 days. MEDICAL HISTORY : [place] SURGICAL HISTORY : Rt side infusaport. ENCOUNTER: Initial ACUITY: 4 - 6 days PAIN SCORE: 8/10 LOCATION: Abdomen FINDINGS: A single view of the chest demonstrates the lungs to be symmetrically aerated without evidence of mas s, infiltrate or effusion. Mild cardiomegaly. Right-sided power port. Osseous structures are intact. CONCLUSION: No acute disease. Tez Espinoza Jr., MD on March 08, 2017 at 11:50 Board Certified Radiologist. This report was verified electronically.
[2017-03-08 12:39] LABS: AUTOMATED NEUTROPHIL # 3.1 TH/MM3 (1.8-7.7); BASOPHIL % 0.6 % (0.0-2.0); EOSINOPHIL # 0.1 TH/MM3 (0-0.4); HEMATOCRIT 25.7 % (35.0-46.0); HEMO FLAGS DIFF FINAL; LYMPH % 30.7 % (9.0-44.0); LYMPHOCYTE # 1.9 TH/MM3 (1.0-4.8); MEAN CELL VOLUME 72.4 FL (80.0-100.0); MEAN CORPUSCULAR HEMOGLOBIN 22.2 PG (27.0-34.0); MEAN CORPUSCULAR HGB CONC 30.7 % (32.0-36.0); MONO % 14.9 % (0.0-8.0); NEUT % 51.8 % (16.0-70.0); PLATELET COUNT 267 TH/MM3 (150-450); RED BLOOD COUNT 3.54 MIL/MM3 (4.00-5.30); RED CELL DISTRIBUTION WIDTH 18.1 % (11.6-17.2); WHITE BLOOD COUNT 6.1 TH/MM3 (4.0-11.0)
[2017-03-08] MEDS ORDERED: diphenhydrAMINE HCL 25 MG CAP PO ONE (12:45)
[2017-03-08] MEDS ORDERED: PROMETHAZINE HCL 25 MG TAB PO ONE (12:45)
[2017-03-08 12:47] LABS: BLOOD, URINE NEG (NEG); COMMENT (UR) CULT NOT INDICATED; CULTURE IF INDICATED CULT NOT INDICATED; GLUCOSE,URINE NEG (NEG); KETONE, URINE NEG (NEG); MUCUS URINE FEW /lpf (OCC); NITRITE,URINE NEG (NEG); PH, URINE 5.5 (5.0-8.5); SQUAMOUS EPITHELIAL CELL URINE 1 /hpf (0-5); URINE COLOR YELLOW (YELLW/STRAW)
[2017-03-08 12:57] LABS: ANION GAP 8 MEQ/L (5-15); AST (GOT) 17 U/L (15-37); BICARBONATE 23.6 MEQ/L (21.0-32.0); BLOOD UREA NITROGEN 9 MG/DL (7-18); CHLORIDE 108 MEQ/L (98-107); GLOMERULAR FILTRATION RATE 164 ML/MIN (>89); POTASSIUM 3.9 MEQ/L (3.5-5.1); SODIUM (NA) 140 MEQ/L (136-145)
[2017-03-08 12:59] LABS: ALT (GPT) 23 U/L (10-53)
[2017-03-08 13:01] LABS: ALKALINE PHOSPHATASE 83 U/L (45-117); TOTAL BILIRUBIN ADULT 0.2 MG/DL (0.2-1.0)
== END 2017-03-08 15:18 | disposition left against medical advice (07) ==
LOC: NEPC 10:47
DX: R10.9 Unspecified abdominal pain (principal); K50.90 Crohn's disease, unspecified, without complications; R05 Cough
CPT/HCPCS: 71010; 80053; 81001; 83690; 84703; 85025; 96361; 96372; 96374; 99285; J1170; J1642; J2550; J7030

== ENCOUNTER 2017-05-21 13:10 | Inpatient (IN) | payer BC ==
[~2017-05-21] VITALS: Ht 157.5 cm; Wt 127.9 kg
[~2017-05-21 13:10] MED LIST changes: +HUMI40KI SQ
[2017-05-21] MEDS ORDERED: IOHEXOL 350 MG/ML 10 ML VIAL (for RAD DIAG) IVCONTRAST ONE (13:11)
[2017-05-21 13:13] VITALS: BP 135/84; PULSE 104; RESP 16; TEMP 98.4; O2SAT 97
[2017-05-21] MEDS ORDERED: SODIUM CHLOR 0.9% 1000 ML INJ 1,000 ML IV SCH (13:33)
[2017-05-21] MEDS ORDERED: HYDROmorphone HCL PF 1 MG/ML VIAL IVS ONE (13:45)
[2017-05-21] MEDS ORDERED: SODIUM CHLORIDE 0.9% FLUSH 10 ML FLUSH IV FLUSH PRN ×2 (13:45→18:45)
[2017-05-21] MEDS ORDERED: PROMETHAZINE INJ 25 MG/ML VIAL IM ONE ×2 (13:45→16:15)
[2017-05-21] MEDS ORDERED: cefTRIAXone INJ 1,000 MG in SODIUM CHLORIDE 0.9% INJ 100 ML IV ONE ×2 (13:45→16:30)
--- NOTE | 2017-05-21 14:08 | PD ---
HPI Chief Complaint: Abdominal Pain Time Seen by Provider: 13:28 Travel History International Travel<30 days: No Contact w/Intl Traveler<30days: No Traveled to known affect area: No History of Present Illness HPI 31-year-old -[place] female with history of Crohn's disease, with ileostomy, presents to the emergency department reporting 3 weeks of "not keeping anything down". Patient also complaining of upper respiratory symptoms including headache, ear pain, decreased hearing, and sore throat. Recent cough as well. She denies fever chills. Patient normally takes Dilaudid and Phenergan for her Crohn's disease, but she is not keeping anything down and worsening over the past several days. Patient states increased stool output from her ostomy as well. She has generalized weakness and body aches. She states she is still urinating but denies urinary symptoms, or vaginal symptoms. Patient saw a sparker and patcher in [place] and currently has no local sparker and patcher in the area. She is currently not taking any medications for her Crohn's as she has been nauseous and vomiting. Patient is allergic to metoclopramide, ondansetron, and morphine. PFSH Past Medical History Anemia: Yes Diabetes: No Gastrointestinal Disorders: Yes (Chrons, ileustomy after colostomy reversal) Implanted Vascular Access Dvce: Yes (Rt upper chest) Sleep Apnea: Yes Influenza Vaccination: No ?: Not LMP: CURRENT Past Surgical History Abdominal Surgery: Yes (ILEOSTOMY) Appendectomy: Yes Cholecystectomy: Yes Social History Alcohol Use: No Tobacco Use: No Substance Use: No Allergies-Medications (Allergen,Severity, Reaction): Coded Allergies: metoclopramide (Unverified Allergy, Severe, 05/21/17) morphine (Unverified Allergy, Severe, 05/21/17) ondansetron (Unverified Allergy, Severe, 05/21/17) Reported Meds & Prescriptions Reported Meds & Active Scripts Active Phenergan (Promethazine HCl) 25 Mg Tablet 25 Mg PO Q6H PRN Reported Humira 2-Pack Inj (Adalimumab 2-Pack Inj) 40 Mg/0.8 Ml Syr 40 Mg SQ Q14D Zantac (Ranitidine HCl) 150 Mg Tab 150 Mg PO DAILY Dilaudid (Hydromorphone HCl) 2 Mg Tab 2 Mg PO Q4H PRN Review of Systems Except as stated in HPI: all other systems reviewed are Neg General / Constitutional: Positive: Chills, No: Fever Eyes: No: Visual changes HENT: Positive: Headaches, Lightheadedness, Rhinitis, Rhinorrhea, Congestion, Dental Difficulties, Earache, No: Vertigo, Sore Throat, Nosebleed, Neck Stiffness, Neck Pain Cardiovascular: No: Chest Pain or Discomfort Respiratory: Positive: Cough, No: Shortness of Breath, Wheezing Gastrointestinal: Positive: Nausea, Vomiting, Diarrhea, Loss of Appetite, No: Abdominal Pain, Constipation, Indigestion, Dysphagia Genitourinary: No: Dysuria Musculoskeletal: Positive: Myalgias, No: Pain Skin: No Rash Neurologic: No: Weakness Psychiatric: No: Depression Endocrine: No: Polydipsia Hematologic/Lymphatic: No: Easy Bruising Physical Exam Narrative GENERAL: Patient appears ill but not septic. SKIN: Warm and slightly diaphoretic. Decreased pallor. Normal turgor. HEAD: Atraumatic. Normocephalic. EYES: Pupils equal and round. No scleral icterus. No injection or drainage. ENT: No nasal bleeding or discharge. Mucous membranes pink and moist. Patient has bilateral erythematous TMs with dullness and loss of landmarks. Sinuses are tender with palpation in both frontal and maxillary sinuses. Posterior pharynx however appears unremarkable. NECK: Trachea midline. Supple and nontender. CARDIOVASCULAR: Regular rate and rhythm. RESPIRATORY: No accessory muscle use. Clear to auscultation. Breath sounds equal bilaterally. GASTROINTESTINAL: Abdomen soft, diffusely tender, nondistended. No point tenderness or guarding. Ostomy appears within normal limits. Hepatic and splenic margins not palpable. MUSCULOSKELETAL: Extremities without clubbing, cyanosis, or edema. No obvious deformities. NEUROLOGICAL: Awake and alert. No obvious cranial nerve deficits. Motor grossly within normal limits. Five out of 5 muscle strength in the arms and legs. Normal speech. PSYCHIATRIC: Appropriate mood and affect; insight and judgment normal. Data Data Last Documented VS Vital Signs Date Time Temp Pulse Resp B/P (MAP) Pulse Ox O2 Delivery O2 Flow Rate FiO2 05/21/17 14:44 104 20 167/88 (114) 96 Room Air 05/21/17 13:13 98.4 Orders Orders Complete Blood Count With Diff (05/21/17 13:33) Comprehensive Metabolic Panel (05/21/17 13:33) Lipase (05/21/17 13:33) Lactic Acid (05/21/17 13:33) Urinalysis - C+S If Indicated (05/21/17 13:33) Ct Abd/Pel W Iv Contrast(Rout) (05/21/17 13:33) Iv Access Insert/Monitor (05/21/17 13:33) Ecg Monitoring (05/21/17 13:33) Oximetry (05/21/17 13:33) Ceftriaxone Inj (Rocephin Inj) (05/21/17 13:45) Sodium Chlor 0.9% 1000 Ml Inj (Ns 1000 M (05/21/17 13:33) Sodium Chloride 0.9% Flush (Ns Flush) (05/21/17 13:45) Electrocardiogram (05/21/17 13:33) Promethazine Inj (Phenergan Inj) (05/21/17 13:45) C Diff Toxin Pcr (05/21/17 13:33) Ckmb (Isoenzyme) Profile (05/21/17 14:08) Act Partial Throm Time (Ptt) (05/21/17 14:08) Troponin I (05/21/17 14:08) Hydromorphone Pf Inj (Dilaudid Pf Inj) (05/21/17 15:00) Diphenhydramine Inj (Benadryl Inj) (05/21/17 15:30) Iohexol 350 Inj (Omnipaque 350 Inj) (05/21/17 13:11) CKMB (05/21/17 15:28) CKMB% (05/21/17 15:28) Promethazine Inj (Phenergan Inj) (05/21/17 16:15) Hydromorphone Pf Inj (Dilaudid Pf Inj) (05/21/17 16:15) Urine Culture (05/21/17 14:45) Lorazepam Inj (Ativan Inj) (05/21/17 17:45) Admit Order (Ed Use Only) (05/21/17 17:40) Labs Laboratory Tests Test 05/21/17 14:04 05/21/17 14:45 05/21/17 15:28 White Blood Count 10.5 TH/MM3 Red Blood Count 4.29 MIL/MM3 Hemoglobin 11.0 GM/DL Hematocrit 32.9 % Mean Corpuscular Volume 76.7 FL Mean Corpuscular Hemoglobin 25.6 PG Mean Corpuscular Hemoglobin Concent 33.3 % Red Cell Distribution Width 24.7 % Platelet Count 462 TH/MM3 Mean Platelet Volume 8.0 FL Neutrophils (%) (Auto) 67.4 % Lymphocytes (%) (Auto) 19.5 % Monocytes (%) (Auto) 11.4 % Eosinophils (%) (Auto) 1.3 % Basophils (%) (Auto) 0.4 % Neutrophils # (Auto) 7.1 TH/MM3 Lymphocytes # (Auto) 2.0 TH/MM3 Monocytes # (Auto) 1.2 TH/MM3 Eosinophils # (Auto) 0.1 TH/MM3 Basophils # (Auto) 0.0 TH/MM3 CBC Comment DIFF FINAL Differential Comment Blood Urea Nitrogen 5 MG/DL Creatinine 0.59 MG/DL Random Glucose 93 MG/DL Total Protein 8.8 GM/DL Albumin 3.1 GM/DL Calcium Level 8.8 MG/DL Alkaline Phosphatase 99 U/L Aspartate Amino Transf (AST/SGOT) 13 U/L Alanine Aminotransferase (ALT/SGPT) 17 U/L Total Bilirubin 0.2 MG/DL Sodium Level 139 MEQ/L Potassium Level 3.6 MEQ/L Chloride Level 105 MEQ/L Carbon Dioxide Level 26.8 MEQ/L Anion Gap 7 MEQ/L Estimat Glomerular Filtration Rate 142 ML/MIN Lactic Acid Level 1.0 mmol/L Lipase 48 U/L Urine Color DARK-RED Urine Turbidity CLOUDY Urine pH 6.0 Urine Specific [place] 1.027 Urine Protein 100 mg/dL Urine Glucose (UA) NEG mg/dL Urine Ketones TRACE mg/dL Urine Occult Blood LARGE Urine Nitrite NEG Urine Bilirubin NEG Urine Urobilinogen LESS THAN 2.0 MG/DL Urine Leukocyte Esterase SMALL Urine RBC /hpf Urine WBC 72 /hpf Urine Bacteria FEW /hpf Urine Mucus MOD /lpf Microscopic Urinalysis Comment CULTURE INDICATED Activated Partial Thromboplast Time 29.7 SEC Total Creatine Kinase 145 U/L Creatine Kinase MB LESS THAN 0.5 NG/ML Troponin I LESS THAN 0.02 NG/ML [facility] Medical Decision Making Medical Screen Exam Complete: Yes Emergency Medical Condition: Yes Medical Record Reviewed: Yes Differential Diagnosis Crohn's flare. Nausea and vomiting. Dehydration. Electrolyte imbalance. Cardiac syndrome. Upper respiratory infection. Otitis media. Sinusitis. Bowel obstruction. Narrative Course Patient is medically stable at time of exam. EKG shows sinus tachycardia with PVCs with questionable bigeminy per Dr. Renteria. Labs ordered including CBC, CMP, magnesium, urinalysis and stool sample to rule out C. difficile. Coagulation studies and cardiac studies are added after EKG. Abdominal CT with IV contrast is ordered. Chest x-ray will be ordered. IV access is obtained, and the patient was given 1000 mL of normal saline bolus. She is given 1 mg Dilaudid IV, and 25 mg Phenergan IM. CBC shows microcytic anemia with a hemoglobin of 11.0, hematocrit is 32.9. Platelet count is elevated at 462. APTT is 29.7 Chemistries are unremarkable with a BUN of 5, creatinine is 0.59. Lactic acid is one-point lipase is normal. Liver functions are normal. Troponin is less than 0.02. CK MB is less than 0.5 Urine is dark red, cloudy, and concentrated with a specific gravity 1.027 Patient has 100 urine protein, trace ketones, large occult blood, with small amount of leukocyte esterase. However there is 72 white blood cells per high- power field, few bacteria and urine is cultured. Patient is given an additional 1 mg Dilaudid IV as well as 25 mg Phenergan IM after her CT scan due to increased complaints of pain and nausea. Patient is given 1000 mg Rocephin IV. Patient is given an additional 50 mg of Benadryl IV. CT scan shows: CONCLUSION: 1. Increasing areas of consolidation in both lung bases medially with scattered nodular densities in both lungs, right greater than left. Findings are nonspecific but a neoplastic process cannot be excluded. PET imaging is recommended for further evaluation. 2. There is some fullness in the hilar regions bilaterally. Findings are concerning for prominent hilar lymph nodes. These areas can be evaluated as well. 3. Stable bilateral adnexal cysts. Stable probable cyst off the left adrenal gland. 4. Stable postsurgical changes multiple surgical clips in the left abdomen. Right colostomy. Diagnosis Primary Impression: Intractable vomiting with nausea Qualified Codes: R11.2 - Nausea with vomiting, unspecified Additional Impressions: Abnormal finding on CT scan Urinary tract infection Qualified Codes: N30.00 - Acute cystitis without hematuria Admitting Information Admitting Physician Requests: Observation Condition: Stable Mcihelet Cid May 21, 2017 14:08
[2017-05-21 14:19] LABS: AUTOMATED NEUTROPHIL # 7.1 TH/MM3 (1.8-7.7); BASOPHIL % 0.4 % (0.0-2.0); EOSINOPHIL # 0.1 TH/MM3 (0-0.4); EOSINOPHIL % 1.3 % (0.0-4.0); HEMATOCRIT 32.9 % (35.0-46.0); LYMPH % 19.5 % (9.0-44.0); MEAN CELL VOLUME 76.7 FL (80.0-100.0); MEAN CORPUSCULAR HEMOGLOBIN 25.6 PG (27.0-34.0); MEAN CORPUSCULAR HGB CONC 33.3 % (32.0-36.0); MONO % 11.4 % (0.0-8.0); MONOCYTE # 1.2 TH/MM3 (0-0.9); NEUT % 67.4 % (16.0-70.0); PLATELET COUNT 462 TH/MM3 (150-450); RED BLOOD COUNT 4.29 MIL/MM3 (4.00-5.30); RED CELL DISTRIBUTION WIDTH 24.7 % (11.6-17.2); WHITE BLOOD COUNT 10.5 TH/MM3 (4.0-11.0)
[2017-05-21 14:37] LABS: ALBUMIN 3.1 GM/DL (3.4-5.0); ALT (GPT) 17 U/L (10-53); AST (GOT) 13 U/L (15-37); BICARBONATE 26.8 MEQ/L (21.0-32.0); BLOOD UREA NITROGEN 5 MG/DL (7-18); CALCIUM 8.8 MG/DL (8.5-10.1); CHLORIDE 105 MEQ/L (98-107); CREATININE 0.59 MG/DL (0.50-1.00); GLOMERULAR FILTRATION RATE 142 ML/MIN (>89); GLUCOSE,RANDOM 93 MG/DL (74-106); SODIUM (NA) 139 MEQ/L (136-145)
[2017-05-21 14:39] LABS: ALKALINE PHOSPHATASE 99 U/L (45-117); TOTAL BILIRUBIN ADULT 0.2 MG/DL (0.2-1.0); TOTAL PROTEIN 8.8 GM/DL (6.4-8.2)
[2017-05-21 14:44] VITALS: BP 167/88; PULSE 104; RESP 20; O2SAT 96
[2017-05-21] MEDS ORDERED: HYDROmorphone HCL PF 2 MG/ML VIAL IV ONE (15:00)
[2017-05-21] MEDS ORDERED: diphenhydrAMINE HCL 50 MG/ML VIAL IV PUSH ONE (15:30)
[2017-05-21 16:01] LABS: TROPONIN I LESS THAN 0.02 NG/ML (0.02-0.05)
[2017-05-21 16:12] LABS: BACTERIA, URINE FEW /hpf; BILIRUBIN, URINE NEG (NEG); BLOOD, URINE LARGE (NEG); GLUCOSE,URINE NEG (NEG); KETONE, URINE TRACE mg/dL (NEG); MUCUS URINE MOD /lpf (OCC); NITRITE,URINE NEG (NEG); URINE LEUKOCYTE ESTERASE SMALL (NEG)
[2017-05-21 16:13] LABS: URINE COLOR DARK-RED (YELLW/STRAW)
[2017-05-21] MEDS ORDERED: HYDROmorphone HCL PF 2 MG/ML VIAL IV PUSH ONE (16:15)
--- NOTE | 2017-05-21 17:09 | RADRPT ---
EXAM DATE/TIME: 05/21/2017 15:47 [facility] COMPARISON: CT ABDOMEN & PELVIS W CONTRAST, January 30, 2017, 20:07. INDICATIONS : Upper abdomen pain IV CONTRAST: 95 cc Omnipaque 350 (iohexol) IV ORAL CONTRAST: No oral contrast ingested. RADIATION DOSE: 18.0 CTDIvol (mGy) MEDICAL HISTORY : Crohn's disease. SURGICAL HISTORY : Cholecystectomy. Appendectomy.ileostomy ENCOUNTER: Initial ACUITY: 2 weeks PAIN SCALE: 10/10 LOCATION: upper quadrant TECHNIQUE: Volumetric scanning of the abdomen and pelvis was performed. Using automated exposure control and ad justment of the mA and/or kV according to patient size, radiation dose was kept as low as reasonably achievable to obtain optimal diagnostic quality images. DICOM format image data is available electro nically for review and comparison. FINDINGS: LOWER LUNGS: Solid areas in both lung bases medially. There also nodular densities in the basilar segments of the left of the upper lobes, right greater than left extending down into the right middle lobe. There is some fullness of the xiao with a probably associated enlarged lymph nodes. LIVER: Homogeneous density without lesion. There is no dilation of the biliary tree. No calcified gallston es. SPLEEN: Normal size without lesion. PANCREAS: Within normal limits. KIDNEYS: Normal in size and shape. There is no mass, stone or hydronephrosis. ADRENAL GLANDS: Stable low density 1.5 cm area extending off the inferior aspect of the left adrenal gland is near fl uid attenuation. VASCULAR: There is no aortic aneurysm. BOWEL/MESENTERY: Postsurgical changes in the left side of the abdomen. Patient has a colostomy in the right abdomen. N o obstruction.. ABDOMINAL WALL: Within normal limits. RETROPERITONEUM: There is no lymphadenopathy. BLADDER: No wall thickening or mass. REPRODUCTIVE: Stable cysts in both adnexa.. INGUINAL: There is no lymphadenopathy or hernia. MUSCULOSKELETAL: Within normal limits for patient age. CONCLUSION: 1. Increasing areas of consolidation in both lung bases medially with scattered nodular densities in both lungs, right greater than left. Findings are nonspecific but a neoplastic process cannot be excl uded. PET imaging is recommended for further evaluation. 2. There is some fullness in the hilar regions bilaterally. Findings are concerning for prominent hil ar lymph nodes. These areas can be evaluated as well. 3. Stable bilateral adnexal cysts. Stable probable cyst off the left adrenal gland. 4. Stable postsurgical changes multiple surgical clips in the left abdomen. Right colostomy. Bradley Higginbotham MD on May 21, 2017 at 16:58 Board Certified Radiologist. This report was verified electronically.
[2017-05-21] MEDS ORDERED: diphenhydrAMINE HCL 50 MG/ML VIAL IM ONE (17:45)
[2017-05-21] MEDS ORDERED: LORazepam 2 MG/ML VIAL IV PUSH ONE (17:45)
--- NOTE | 2017-05-21 18:28 | HHI.HP ---
HPI Service Family Medicine Primary Care Physician No Primary Care Physician Admission Diagnosis Intractible Vomiting/Abnormal CT findings/Bigeminy Diagnoses: Chief Complaint: Feeling awful International Travel<30 Days: No Contact w/Intl Traveler<30days: No Known Affected Area: No History of Present Illness Patient is a 31 year old female with a PMH significant for Crohn's disease, ELY on CPAP, chronic sinusitis and anemia who presents today for "feeling awful." She has felt this way for the past couple weeks. Symptoms include poor appetite , fatigue, nausea, vomiting, malaise, sinus pressure and headache. Symptoms started with pain on the right side of her face which has now expanded to her whole face. Her sinus symptoms initially improved but then worsened. Symptoms started about 3 weeks ago. She has a history of chronic sinus issues. She also notes a cough for the past three weeks. The cough is occasionally dry and occasionally productive of sputum with streaks of blood. Her cough has been progressively worsening and she has been experiencing shortness of breath for the last few days. She has chest soreness from coughing. Her throat also feels itchy and scratchy. She thinks she has lost 10-12 lbs over the past three weeks because she is having trouble keeping solids or liquids down. She has emesis every time she tries to eat or drink anything. She had three episodes of emesis today without blood or bile. She has had fevers on and off for the last few days and night sweats. Her temperature last night was 100.7. She has been taking Tylenol with improvement in fever. She does not have a local PCP, but she was able to get a prescription for amoxicillin for her sinus issues which she took for 1 day but it caused her to have an upset stomach so she stopped taking it. Her last PCP visit was in April. She does not have a local GI. She has an ileostomy bag. No sick contacts. She did not get the flu shot this year. She also notes abdominal pain for the past few weeks in upper abdomen. The pain is described as a stabbing pain. She also notes that her bowels have foul odor and are more liquid than usual. There has been no change in color. She has not been able to take her Dilaudid due to nausea and vomiting. She has not taken any medications for the last 3-4 days. Last seen in early April by GI in [place]. She is going to be starting Stelara for Crohn's disease and was previously on Humira. Her last dose of Humira was in April 2016. She also has a port which was placed in March 2016. Review of Systems Constitutional: COMPLAINS OF: Diaphoretic episodes, Fatigue, Fever, Weight loss , Chills, Change in appetite, Night Sweats Endocrine: DENIES: Abnorml menstrual pattern Eyes: DENIES: Blurred vision, Eye pain Ears, nose, mouth, throat: COMPLAINS OF: Nasal discharge, Throat pain, Ear Pain , Running Nose, Sinus Pain, Toothache Respiratory: COMPLAINS OF: Cough, Hemoptysis, Sputum production, Shortness of breath Cardiovascular: COMPLAINS OF: Chest pain, DENIES: Lower Extremity Edema Gastrointestinal: COMPLAINS OF: Abdominal pain, Diarrhea, Nausea, Vomiting, DENIES: Black stools, Bloody stools, Constipation Genitourinary: DENIES: Abnormal vaginal bleeding, Urinary frequency, Urgency, Hematuria, Dysuria, Vaginal discharge Musculoskeletal: COMPLAINS OF: Back pain, DENIES: Muscle aches Integumentary: DENIES: Rash Hematologic/lymphatic: DENIES: Lymphadenopathy Neurologic: COMPLAINS OF: Headache Psychiatric: DENIES: Anxiety, Depression Past Family Social History Past Medical History Crohn's Disease ELY on CPAP Anemia Chronic sinusitis Past Surgical History Appendectomy 2006 Colostomy after perforation November 2005 Ex Lap with ileostomy July 2010 Cholecystectomy December 2010 Reported Medications Reported Meds & Active Scripts Active Phenergan (Promethazine HCl) 25 Mg Tablet 25 Mg PO Q6H PRN Reported Humira 2-Pack Inj (Adalimumab 2-Pack Inj) 40 Mg/0.8 Ml Syr 40 Mg SQ Q14D. Transitioning to Stelara. Zantac (Ranitidine HCl) 150 Mg Tab 150 Mg PO DAILY Dilaudid (Hydromorphone HCl) 2 Mg Tab 2 Mg PO Q4H PRN- Does not take this every day. Iron Multivitamin Vitamin B12 Allergies: Coded Allergies: metoclopramide (Unverified Allergy, Severe, 05/21/17) morphine (Unverified Allergy, Severe, 05/21/17) ondansetron (Unverified Allergy, Severe, 05/21/17) Active Ordered Medications Current Medications Medications (Trade) Dose Ordered Sig/Letty Route Start Time Stop Time Status Last Admin (NS Flush) 2 ml UNSCH PRN IV FLUSH 05/21/17 13:45 Family History Mother- Prediabetes, Sleep apnea, thyroid problem Father- unknown Sister- healthy Brother- healthy Social History Lives alone in [place] in an apartment. No tobacco, alcohol, or illicit drug use. She works [employer]. Used to smoke cigars >10 years ago, socially. Physical Exam Vital Signs Vital Signs Date Time Temp Pulse Resp B/P (MAP) Pulse Ox O2 Delivery O2 Flow Rate FiO2 05/21/17 14:44 104 20 167/88 (114) 96 Room Air 05/21/17 13:36 20 05/21/17 13:13 98.4 104 16 135/84 (101) 97 Physical Exam GENERAL: This is a well-nourished, well-developed obese female patient, who appears fatigued. SKIN: No rashes, ecchymoses or lesions. Cool and dry. HEAD: Atraumatic. Normocephalic. No temporal or scalp tenderness. EYES: Pupils equal round and reactive. Extraocular motions intact. No scleral icterus. No injection or drainage. ENT: Nose without bleeding, purulent drainage or septal hematoma. Throat without erythema, tonsillar hypertrophy or exudate. Uvula midline. Airway patent. Tympanic membranes pearly pineda bilaterally with light reflex intact. Frontal and maxillary sinus tenderness bilaterally. NECK: Trachea midline. No JVD or lymphadenopathy. Supple, nontender, no meningeal signs. CARDIOVASCULAR: Regular rate and rhythm without murmurs, gallops, or rubs. Right chest port. RESPIRATORY: Decreased breath sounds throughout lung loaiza bilaterally. Coarse breath sounds in the bases bilaterally. No wheezes or rhonchi. GASTROINTESTINAL: Abdomen soft, diffusely tender to palpation, nondistended. No hepato-splenomegaly, or palpable masses. Guarding. Right colostomy producing yellow liquid. MUSCULOSKELETAL: Extremities with trace edema. No joint tenderness, effusion, or edema noted. No calf tenderness. Negative Homans sign bilaterally. NEUROLOGICAL: Awake and alert. Cranial nerves II through XII intact. Motor and sensory grossly within normal limits. Normal speech. Laboratory Laboratory Tests Test 05/21/17 14:04 05/21/17 14:45 05/21/17 15:28 05/21/17 17:43 White Blood Count 10.5 Red Blood Count 4.29 Hemoglobin 11.0 Hematocrit 32.9 Mean Corpuscular Volume 76.7 Mean Corpuscular Hemoglobin 25.6 Mean Corpuscular Hemoglobin Concent 33.3 Red Cell Distribution Width 24.7 Platelet Count 462 Mean Platelet Volume 8.0 Neutrophils (%) (Auto) 67.4 Lymphocytes (%) (Auto) 19.5 Monocytes (%) (Auto) 11.4 Eosinophils (%) (Auto) 1.3 Basophils (%) (Auto) 0.4 Neutrophils # (Auto) 7.1 Lymphocytes # (Auto) 2.0 Monocytes # (Auto) 1.2 Eosinophils # (Auto) 0.1 Basophils # (Auto) 0.0 CBC Comment DIFF FINAL Differential Comment Blood Urea Nitrogen 5 Creatinine 0.59 Random Glucose 93 Total Protein 8.8 Albumin 3.1 Calcium Level 8.8 Alkaline Phosphatase 99 Aspartate Amino Transf (AST/SGOT) 13 Alanine Aminotransferase (ALT/SGPT) 17 Total Bilirubin 0.2 Sodium Level 139 Potassium Level 3.6 Chloride Level 105 Carbon Dioxide Level 26.8 Anion Gap 7 Estimat Glomerular Filtration Rate 142 Lactic Acid Level 1.0 Lipase 48 Urine Color DARK-RED Urine Turbidity CLOUDY Urine pH 6.0 Urine Specific [place] 1.027 Urine Protein 100 Urine Glucose (UA) NEG Urine Ketones TRACE Urine Occult Blood LARGE Urine Nitrite NEG Urine Bilirubin NEG Urine Urobilinogen LESS THAN 2.0 Urine Leukocyte Esterase SMALL Urine RBC Urine WBC 72 Urine Bacteria FEW Urine Mucus MOD Microscopic Urinalysis Comment CULTURE INDICATED Activated Partial Thromboplast Time 29.7 Total Creatine Kinase 145 Creatine Kinase MB LESS THAN 0.5 Troponin I LESS THAN 0.02 Date/Time Source Procedure Growth Status 05/21/17 14:45 Urine Clean Catch Urine Culture Pending Received Result Diagram: 05/21/17 1404 05/21/17 1404 Imaging Last Impressions Abdomen/Pelvis CT 05/21/17 1333 Signed Impressions: Service Date/Time: Sunday, May 21, 2017 15:47 - CONCLUSION: 1. Increasing areas of consolidation in both lung bases medially with scattered nodular densities in both lungs, right greater than left. Findings are nonspecific but a neoplastic process cannot be excluded. PET imaging is recommended for further evaluation. 2. There is some fullness in the hilar regions bilaterally. Findings are concerning for prominent hilar lymph nodes. These areas can be evaluated as well. 3. Stable bilateral adnexal cysts. Stable probable cyst off the left adrenal gland. 4. Stable postsurgical changes multiple surgical clips in the left abdomen. Right colostomy. Bradley Higginbotham MD Chest X-Ray 05/21/17 0000 Signed Impressions: Service Date/Time: Sunday, May 21, 2017 19:29 - CONCLUSION: 1. Patchy basilar airspace disease most characteristic of bronchopneumonia. MD Shawn Espinosa VTE Risk Assessment Caprini VTE Risk Assessment: Mod/High Risk (score >= 2) Caprini Risk Assessment Model Point Value = 1 Point Value = 2 Point Value = 3 Point Value = 5 Age 41-60 Minor surgery BMI > 25 kg/m2 Swollen legs Varicose veins or History of unexplained or recurrent spontaneous Oral contraceptives or hormone replacement Sepsis (< 1 month) Serious lung disease, including pneumonia (< 1 month) Abnormal pulmonary function Acute myocardial infarction Congestive heart failure (< 1 month) History of inflammatory bowel disease Medical patient at bed rest Age 61-74 Arthroscopic surgery Major open surgery (> 45 min) Laparoscopic surgery (> 45 min) Malignancy Confined to bed (> 72 hours) Immobilizing plaster cast Central venous access Age >= 75 History of VTE Family history of VTE Factor V Leiden Prothrombin [id number] Lupus anticoagulant Anticardiolipin antibodies Elevated serum homocysteine Heparin-induced thrombocytopenia Other congenital or acquired thrombophilia Stroke (< 1 month) Elective arthroplasty Hip, pelvis, or leg fracture Acute spinal cord injury (< 1 month) Prophylaxis Regimen Total Risk Factor Score Risk Level Prophylaxis Regimen 0-1 Low Early ambulation 2 Moderate Order ONE of the following: *Sequential Compression Device (SCD) *Heparin 5000 units SQ BID 3-4 Higher Order ONE of the following medications: *Heparin 5000 units SQ TID *Enoxaparin/Lovenox 40 mg SQ daily (WT < 150 kg, CrCl > 30 mL/min) *Enoxaparin/Lovenox 30 mg SQ daily (WT < 150 kg, CrCl > 10-29 mL/min) *Enoxaparin/Lovenox 30 mg SQ BID (WT < 150 kg, CrCl > 30 mL/min) AND/OR *Sequential Compression Device (SCD) 5 or more Highest Order ONE of the following medications: *Heparin 5000 units SQ TID (Preferred with Epidurals) *Enoxaparin/Lovenox 40 mg SQ daily (WT < 150 kg, CrCl > 30 mL/min) *Enoxaparin/Lovenox 30 mg SQ daily (WT < 150 kg, CrCl > 10-29 mL/min) *Enoxaparin/Lovenox 30 mg SQ BID (WT < 150 kg, CrCl > 30 mL/min) AND *Sequential Compression Device (SCD) Assessment and Plan Assessment and Plan Patient is a 31 year old female with a PMH significant for Crohn's disease, ELY on CPAP, chronic sinusitis and anemia who presents today with cough, malaise, and abdominal pain and is admitted for pneumonia and Crohn's disease flare. Code Status Full Code Discussed Condition With dw Dr. Islas and Dr. Hunt Problem List: (1) CAP (community acquired pneumonia) ICD Codes: J18.9 - Pneumonia, unspecified organism Status: Acute Plan: CXR shows patchy basilar airspace disease most characteristic of bronchopneumonia Incidental finding of increasing areas of consolidation in both lung bases medially with scattered nodular densities in both lungs on abdomen/pelvis CT scan Febrile at home, no fevers since admission Tachycardia O2 sat 95-96% on RA, respiratory rate wnl No leukocytosis History of Humira inj 1 year ago, not currently being treated Plan: - Obtain PPD - Treat empirically with Rocephin and Azithromcyin - Obtain sputum cultures, urine antigens for strep and legionella - Obtain blood cultures - Duonebs PRN - Monitor CBC (2) Sinusitis chronic, frontal ICD Codes: J32.1 - Chronic frontal sinusitis Status: Acute Plan: Treatment with IV antibiotics as above Consider further imaging if symptoms worsen (3) Abdominal pain ICD Codes: R10.9 - Unspecified abdominal pain Status: Acute Plan: Likely secondary to Crohn's Disease flare Obtain C diff given watery stool Continue home dose of Dilaudid 2mg IV q4H PRN pain Continue Phenergan 25mg Q6H IM PRN nausea/vomiting Maintenance IV fluids with NS @ 167ml/hr Clear liquid diet as tolerated (4) Intractable vomiting with nausea ICD Codes: R11.2 - Nausea with vomiting, unspecified Status: Acute Plan: CMP wnl, reassuring Treatment as above (5) Abnormal finding on urinalysis ICD Codes: R82.90 - Unspecified abnormal findings in urine Status: Acute Plan: UA significant for 100 protein, large occult blood, small leukocyte esterase, 72 WBCs, few bacteria, moderate mucus Patient currently menstruating and abnormal results are likely secondary to this. No clinical symptoms of acute cystitis. Will follow urine culture. (6) ELY (obstructive sleep apnea) ICD Codes: G47.33 - Obstructive sleep apnea (adult) (pediatric) Status: Chronic Plan: Continue CPAP HS (7) Localized pruritus ICD Codes: L29.9 - Pruritus, unspecified Status: Chronic Plan: Benadryl PRN (8) Crohns disease ICD Codes: K50.90 - Crohn's disease, unspecified, without complications Plan: As above (9) Nutrition, metabolism, and development symptoms ICD Codes: R63.8 - Other symptoms and signs concerning food and fluid intake Plan: Fluids: NS @ 167ml/hr Electrolytes: wnl, continue to monitor and replete PRN Nutrition: clear liquids as tolerated DVT ppx: Lovenox 40mg SQ Q24H Problem Qualifiers (1) CAP (community acquired pneumonia): (2) Abdominal pain: Qualified Codes: R10.84 - Generalized abdominal pain (3) Intractable vomiting with nausea: Qualified Codes: R11.2 - Nausea with vomiting, unspecified (4) Crohns disease: Qualified Codes: K50.818 - Crohn's disease of both small and large intestine with other complication Beth Balderas MD, R3 May 21, 2017 18:28
[2017-05-21] MEDS ORDERED: ACETAMINOPHEN 325 MG TAB PO PRN (18:45)
[2017-05-21] MEDS ORDERED: PROCHLORPERAZINE 25 MG SUPP RECTAL PRN (18:45)
[2017-05-21] MEDS ORDERED: NALOXONE HCL 0.4 MG/ML AMP IV PUSH PRN (18:45)
[2017-05-21 19:08] VITALS: BP 140/84; PULSE 97; RESP 20; O2SAT 95
[2017-05-21] MEDS ORDERED: diphenhydrAMINE HCL 25 MG CAP PO PRN (19:15)
[2017-05-21] MEDS ORDERED: PROMETHAZINE HCL 25 MG TAB PO PRN (19:15)
[2017-05-21 20:00] VITALS: BP 127/59; PULSE 94; RESP 12; TEMP 99.4; O2SAT 92; O2SAT 96
[2017-05-21] MEDS ORDERED: TUBERCULIN, PPD 5 UNITS/0.1 ML SYRINGE I-DERMAL ONE (20:00)
[2017-05-21] MEDS ORDERED: AZITHROMYCIN 250 MG TAB PO SCH (20:00)
[2017-05-21] MEDS ORDERED: metroNIDAZOLE 500 MG TAB PO SCH (20:00)
[2017-05-21] MEDS: HYDROmorphone HCL PF 2 MG/ML VIAL IV PUSH PRN ×2 (20:01→23:39)
--- NOTE | 2017-05-21 20:06 | RADRPT ---
EXAM DATE/TIME: 05/21/2017 19:29 [facility] COMPARISON: No previous studies available for comparison. INDICATIONS : Cough. MEDICAL HISTORY : Crohn's disease. SURGICAL HISTORY : Cholecystectomy. Appendectomy. Ileostomy. Port placement. ENCOUNTER: Initial ACUITY: 3 weeks PAIN SCORE: 0/10 LOCATION: Bilateral chest FINDINGS: PA and lateral views of the chest demonstrate a [id number]-Wefl in superior vena cava. Patchy bilateral mostly basilar airspace disease which could represent bronchopneumonia. Mild cardiomegaly. CONCLUSION: 1. Patchy basilar airspace disease most characteristic of bronchopneumonia. Deyvi Austin MD on May 21, 2017 at 20:03 Board Certified Radiologist. This report was verified electronically.
[2017-05-21] MEDS: SODIUM CHLOR 0.9% 1000 ML INJ 1,000 ML IV SCH (20:13)
[2017-05-21] MEDS: SODIUM CHLORIDE 0.9% FLUSH 10 ML FLUSH IV FLUSH SCH (21:00)
[2017-05-21] MEDS: PROMETHAZINE INJ 25 MG/ML VIAL IM PRN (23:39)
[2017-05-21] MEDS: ENOXAPARIN SODIUM 40 MG/0.4 ML SYRINGE SQ SCH (23:40)
[2017-05-22] VITALS (7 sets, daily range): BP systolic 126–137; BP diastolic 60–76; PULSE 89–106; RESP 17–19; TEMP 97.4–98.9; O2SAT 95–100
[2017-05-22] MEDS: SODIUM CHLOR 0.9% 1000 ML INJ 1,000 ML IV SCH ×5 (02:00→23:25)
[2017-05-22] MEDS: AZITHROMYCIN INJ 500 MG in SODIUM CHLOR 0.9% 250 ML INJ 250 ML IV SCH (02:10)
[2017-05-22] MEDS: diphenhydrAMINE HCL 50 MG/ML VIAL IV PUSH PRN ×3 (02:10→23:12)
[2017-05-22] MEDS: HYDROmorphone HCL PF 2 MG/ML VIAL IV PUSH PRN ×6 (03:58→23:11)
--- NOTE | 2017-05-22 07:34 | HHI.FPPN ---
Subjective Remarks Yaneth Gan is a 31yo lady with history significant for Crohn's disease and obstructive sleep apnea admitted for community acquired pneumonia and nausea /vomiting/abdominal pain. For further details, please see resident H&P dated 03/26. Overnight, pt continued to have watery output in ostomy. She also had a nose bleed overnight. No further vomiting. This morning, she reports fatigue, weakness. + abdominal pain. She continues to have a cough as well. She normally empties her ostomy bag 4-5 times per day, but is currently ~10 times per day while sick. ROS: Per resident H&P dated 05/21/17. + fatigue, weakness, nausea, vomiting, abdominal pain, cough. No fevers. All other systems reviewed are negative. PMH/PSxH/SocHx/FamHx: Per resident H&P dated 05/21/17. Significant for: Crohn's disease, with last dose of immune modulating medication (Humira) 1 year ago. Obstructive sleep apnea on CPAP; anemia, and chronic sinusitis. Appy 2005; colostomy 11/2005; port placement; ex lap with ileostomy 2010; cholecystectomy 2010. Mother with thyroid disease. No tobacco, alcohol, or recreational drug use. Objective Vitals Vital Signs Date Time Temp Pulse Resp B/P (MAP) Pulse Ox O2 Delivery O2 Flow Rate FiO2 05/22/17 04:00 98.9 105 19 127/60 (82) 96 05/22/17 00:00 98.9 106 19 130/60 (83) 95 05/21/17 21:15 05/21/17 20:00 99.4 94 12 127/59 (81) 92 05/21/17 20:00 96 05/21/17 19:08 97 20 140/84 (102) 95 Room Air 05/21/17 14:44 104 20 167/88 (114) 96 Room Air 05/21/17 13:36 20 05/21/17 13:13 98.4 104 16 135/84 (101) 97 I/O 05/21/17 05/21/17 05/21/17 05/22/17 05/22/17 05/22/17 07:00 15:00 23:00 07:00 15:00 23:00 Intake Total 1270 ml Balance 1270 ml Intake Oral 120 ml IV Total 1150 ml # Voids 0 # Bowel Movements 0 Result Diagram: 05/21/17 1404 05/21/17 1404 Objective Remarks Per resident H&P dated 05/21/17. Significant for: + cough, nonproductive, throughout exam/interview. CTAB. Abdomen with multiple scars from prior surgeries. Ostomy in place, with watery green liquid stool in ostomy bag. + tenderness to palpation above umbilicus. No rebound, no guarding. A/P Assessment and Plan Patient is a 31 year old female with a PMH significant for Crohn's disease, ELY on CPAP, chronic sinusitis and anemia who presents today with cough, malaise, and abdominal pain and is admitted for pneumonia and Crohn's disease flare. Attending Attestation Patient seen, examined, and discussed with resident team at approximately 10:00 AM. The patient has been seen and examined. The chart and all resident notes have been reviewed. I agree that inpatient care is appropriate and that a two midnight stay is expected for the reasons documented in the resident history and physical. I have discussed this with the resident and certify the resident s order for inpatient admission. Problem List: (1) CAP (community acquired pneumonia) ICD Codes: J18.9 - Pneumonia, unspecified organism Status: Acute Plan: CXR shows patchy basilar airspace disease most characteristic of bronchopneumonia. Patient is maintaining O2 sats on room air. Incidental finding of increasing areas of consolidation in both lung bases medially with scattered nodular densities in both lungs on abdomen/pelvis CT scan Febrile at home, no fevers since admission History of last Humira injection 1 year ago, not currently being treated Plan: - Obtain PPD - Treat empirically with Rocephin and Azithromcyin. 05/22/17--> - Obtain sputum cultures, urine antigens for strep and legionella - Obtain blood cultures - Duonebs PRN (2) Abdominal pain ICD Codes: R10.9 - Unspecified abdominal pain Status: Acute Plan: Likely secondary to Crohn's Disease flare. Consult GI for further assistance. Of note, patient has not yet established with a local GI physician. C Diff negative. Stool cultures pending. Continue home dose of Dilaudid 2mg IV q4H PRN pain Continue Phenergan 25mg Q6H IM PRN nausea/vomiting Maintenance IV fluids with NS @ 167ml/hr Clear liquid diet as tolerated (3) Sinusitis chronic, frontal ICD Codes: J32.1 - Chronic frontal sinusitis Status: Acute Plan: Treatment with IV antibiotics as above. Consider further imaging if symptoms worsen (4) Intractable vomiting with nausea ICD Codes: R11.2 - Nausea with vomiting, unspecified Status: Acute Plan: CMP wnl, reassuring. Treatment as above. No further vomiting. (5) Crohns disease ICD Codes: K50.90 - Crohn's disease, unspecified, without complications Status: Acute Plan: Suspect acute flare of Crohn's disease. Consult GI. Start steroids. Pt reports multiple complications from her Crohn's. (6) UTI (urinary tract infection) ICD Codes: N39.0 - Urinary tract infection, site not specified Plan: UCx demonstrates MRSA in urine. Vancomycin 05/22/17 --> Concern for hematogenous spread Blood cultures pending Check 2d echo. Pt with hematuria, but also on her period at this time. (7) ELY (obstructive sleep apnea) ICD Codes: G47.33 - Obstructive sleep apnea (adult) (pediatric) Status: Chronic Plan: Continue CPAP HS. (8) Localized pruritus ICD Codes: L29.9 - Pruritus, unspecified Status: Chronic Plan: Benadryl PRN (9) Abnormal abdominal CT scan ICD Codes: R93.5 - Abnormal findings on diagnostic imaging of other abdominal regions, including retroperitoneum Plan: Incidental finding of increasing areas of consolidation in both lung bases medially with scattered nodular densities in both lungs on abdomen/pelvis CT scan. Discussed these findings with patient. Plan for PET scan as an outpatient. Check peripheral smear as well. Of note, patient has been treated with humira intermittently for years, which may increase incidence of lymphoma. Problem Qualifiers (1) CAP (community acquired pneumonia): (2) Abdominal pain: Qualified Codes: R10.84 - Generalized abdominal pain (3) Intractable vomiting with nausea: Qualified Codes: R11.2 - Nausea with vomiting, unspecified (4) Crohns disease: Qualified Codes: K50.818 - Crohn's disease of both small and large intestine with other complication (5) UTI (urinary tract infection): Qualified Codes: N30.01 - Acute cystitis with hematuria Ellie Islas MD May 22, 2017 07:34
[2017-05-22] MEDS: FAMOTIDINE 20 MG TAB PO SCH (08:06)
[2017-05-22] MEDS: SODIUM CHLORIDE 0.9% FLUSH 10 ML FLUSH IV FLUSH SCH ×2 (08:07→21:00)
[2017-05-22] MEDS: PROMETHAZINE INJ 25 MG/ML VIAL IM PRN ×3 (08:07→23:12)
[2017-05-22] MEDS ORDERED: NON-FORMULARY DRUG (Ranitidine (Zantac) 150 MG) PO SCH (09:00)
[2017-05-22] MEDS ORDERED: ALTEPLASE RECOMBINANT 2 MG VIAL IV ONE (13:30)
--- NOTE | 2017-05-22 14:28 | PD.CONS ---
HPI History of Present Illness This is a 31 year old female with Crohn's s/p colostomy who presented with sinus pain, abd pain, n/v. She has been having URI symptoms and sinus pain for the last 3 weeks along with worsening n/v. She is c/o upper abd pain. Stool in colostomy is thinner and more watery than usual and she attributes this to not having any solid food intake. No blood in stool or emesis. She had 1 day of amoxicillin to treat her sinusitis but could not tolerate it. Admits intermittent subjective fevers. Had EGD 12/2016 in [place] that was normal. Had colonsocopy 02/2017 as part of an evaluation for reversal of ileostomy and says she was not advised of any abnormal findings or inflammation but told that the surgeon did not want to "risk" doing the reversal. She is unable to say how often she has Crohn's flareups. She takes no meds for it; says none have worked for her including humira which she last had 04/2016, remicade, asacol. She does not have a local GI doctor. (Keiry Baca) PFSH Past Medical History Crohn's ELY anemia Past Surgical History ileostomy colectomy colostomy cholecystectomy appendectomy (Keiry Baca) Coded Allergies: metoclopramide (Unverified Allergy, Severe, 05/21/17) morphine (Unverified Allergy, Severe, 05/21/17) ondansetron (Unverified Allergy, Severe, 05/21/17) Family History DM HTN Social History denies any toxic habits (Keiry Baca) Review of Systems Constitutional: COMPLAINS OF: Fatigue, Fever Endocrine: DENIES: Polydipsia Eyes: DENIES: Blurred vision Ears, nose, mouth, throat: DENIES: Hearing loss Respiratory: COMPLAINS OF: Cough, Hemoptysis, Sputum production, Shortness of breath Cardiovascular: DENIES: Chest pain Gastrointestinal: COMPLAINS OF: Abdominal pain, Diarrhea, Nausea, Vomiting, DENIES: Black stools, Bloody stools, Constipation, Hematemesis Genitourinary: DENIES: Hematuria Musculoskeletal: DENIES: Stiffness Integumentary: DENIES: Pruritus Hematologic/lymphatic: DENIES: Bruising Immunologic/allergic: DENIES: Eczema Neurologic: DENIES: Abnormal gait Psychiatric: DENIES: Confusion (Keiry Baca) GI Exam Vitals I&O Vital Signs Date Time Temp Pulse Resp B/P (MAP) Pulse Ox O2 Delivery O2 Flow Rate FiO2 05/22/17 12:00 97.4 89 17 129/76 (93) 96 05/22/17 09:43 95 05/22/17 08:00 97.7 92 17 126/64 (84) 95 05/22/17 04:00 98.9 105 19 127/60 (82) 96 05/22/17 00:00 98.9 106 19 130/60 (83) 95 05/21/17 21:15 05/21/17 20:00 99.4 94 12 127/59 (81) 92 05/21/17 20:00 96 05/21/17 19:08 97 20 140/84 (102) 95 Room Air 05/21/17 14:44 104 20 167/88 (114) 96 Room Air I/O 05/21/17 05/21/17 05/21/17 05/22/17 05/22/17 05/22/17 07:00 15:00 23:00 07:00 15:00 23:00 Intake Total 1270 ml Balance 1270 ml Intake Oral 120 ml IV Total 1150 ml # Voids 0 # Bowel Movements 0 Imaging Last Impressions Abdomen/Pelvis CT 05/21/17 1333 Signed Impressions: Service Date/Time: Sunday, May 21, 2017 15:47 - CONCLUSION: 1. Increasing areas of consolidation in both lung bases medially with scattered nodular densities in both lungs, right greater than left. Findings are nonspecific but a neoplastic process cannot be excluded. PET imaging is recommended for further evaluation. 2. There is some fullness in the hilar regions bilaterally. Findings are concerning for prominent hilar lymph nodes. These areas can be evaluated as well. 3. Stable bilateral adnexal cysts. Stable probable cyst off the left adrenal gland. 4. Stable postsurgical changes multiple surgical clips in the left abdomen. Right colostomy. Bradley Higginbotham MD Chest X-Ray 05/21/17 0000 Signed Impressions: Service Date/Time: Sunday, May 21, 2017 19:29 - CONCLUSION: 1. Patchy basilar airspace disease most characteristic of bronchopneumonia. Deyvi Austin MD Laboratory Test 05/21/17 14:45 05/21/17 15:28 05/21/17 17:43 Urine Color DARK-RED Urine Turbidity CLOUDY Urine pH 6.0 Urine Specific [place] 1.027 Urine Protein 100 mg/dL Urine Glucose (UA) NEG mg/dL Urine Ketones TRACE mg/dL Urine Occult Blood LARGE Urine Nitrite NEG Urine Bilirubin NEG Urine Urobilinogen LESS THAN 2.0 MG/DL Urine Leukocyte Esterase SMALL Urine RBC /hpf Urine WBC 72 /hpf Urine Bacteria FEW /hpf Urine Mucus MOD /lpf Microscopic Urinalysis Comment CULTURE INDICATED Activated Partial Thromboplast Time 29.7 SEC Total Creatine Kinase 145 U/L Creatine Kinase MB LESS THAN 0.5 NG/ML Troponin I LESS THAN 0.02 NG/ML Stool C. difficile Toxin (PCR) NEGATIVE Stl C. difficile Toxin Epiderm 027 PRESUMPTIVE NEGATIVE Date/Time Source Procedure Growth Status 05/21/17 13:25 Blood Peripheral Aerobic Blood Culture Pending Received 05/21/17 13:25 Blood Peripheral Anaerobic Blood Culture Pending Received 05/21/17 23:45 Nasal Washing Influenza Types A,B Antigen (NISSA) - Final NEGATIVE FOR FLU A AND B ANTIGEN.... Complete 05/21/17 14:45 Urine Clean Catch Urine Culture - Preliminary S. Aureus Mrsa Resulted Physical Examination HEENT: PERRL; normocephalic; atraumatic; no jaundice. CHEST: CTA CARDIAC: RRR ABDOMEN: Soft, obese, mild TTP epigastrium; no hepatosplenomegaly; bowel sounds are present in all four quadrants. ostomy with watery brown stool EXTREMITIES: No clubbing, cyanosis, or edema. SKIN: Normal; no rash; no jaundice. 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 (Keiry Baca) Assessment and Plan Plan ASSESSMENT - n/v, epigastric pain - unclear etiology. had normal EGD 12/2016. had colonoscopy 02/2017 not aware of abnormal findings. CT unremarkable for acute abd process. no blood in stool or emesis. may not be Crohn's flare, will hold off on giving steroids for now PLAN - EGD if n/v persists - abx for PNA per attending - antiemetics - supportive care - further recs to follow pt seen by myself and Dr Louis and this note is written on his behalf (Keiry Baca) Physician Comments Patient seen and examined Agree with above Continue with current supportive care Monitor labs Most likely cause of symptoms is secondary to the pneumonia No solid evidence of Crohn's flare at this point We will monitor the situation closely and will consider endoscopy as needed (Jose Louis MD) Keiry Baca May 22, 2017 14:28 Jose Louis MD May 22, 2017 17:22
[2017-05-22] MEDS ORDERED: Vancomycin Consult Pharmacy 1 EA OTHER SCH (15:30)
[2017-05-22] MEDS: cefTRIAXone INJ 1,000 MG in SODIUM CHLORIDE 0.9% INJ 100 ML IV SCH (15:31)
[2017-05-22] MEDS ORDERED: predniSONE 20 MG TAB PO SCH (15:45)
[2017-05-22] MEDS: VANCOMYCIN INJ 1,250 MG in SODIUM CHLOR 0.9% 250 ML INJ 250 ML IV SCH ×2 (16:54→17:30)
--- NOTE | 2017-05-22 18:21 | EKG ---
Date Performed: 05/21/2017 Time Performed: 13:59:30 PTAGE: 31 years EKG: SINUS TACHYCARDIA WITH FREQUENT VENTRICULAR PREMATURE COMPLEXES ABNORMAL RHYTHM ECG NO PREVIOUS TRACING DOCTOR: Victoriano Perez Interpretating Date/Time 05/22/2017 18:20:49
[2017-05-22] MEDS: RESP: ALBUTEROL 2.5 MG/IPRATROPIUM 0.5 MG NEB (PRN) INH (19:27)
[2017-05-22] MEDS: SKIN TEST RESULT OTHER SCH (20:00)
[2017-05-22] MEDS: ENOXAPARIN SODIUM 40 MG/0.4 ML SYRINGE SQ SCH (23:25)
[2017-05-22 23:55] LABS: BASOPHIL # 0.1 TH/MM3 (0-0.2); BASOPHIL % 0.8 % (0.0-2.0); EOSINOPHIL # 0.2 TH/MM3 (0-0.4); HEMATOCRIT 28.2 % (35.0-46.0); HEMOGLOBIN 9.1 GM/DL (11.6-15.3); LYMPH % 21.7 % (9.0-44.0); LYMPHOCYTE # 1.7 TH/MM3 (1.0-4.8); MEAN CELL VOLUME 77.8 FL (80.0-100.0); MEAN CORPUSCULAR HGB CONC 32.2 % (32.0-36.0); MEAN PLATELET VOLUME 7.8 FL (7.0-11.0); MONO % 10.9 % (0.0-8.0); MONOCYTE # 0.8 TH/MM3 (0-0.9); NEUT % 64.6 % (16.0-70.0); PLATELET COUNT 387 TH/MM3 (150-450); RED BLOOD COUNT 3.62 MIL/MM3 (4.00-5.30); RED CELL DISTRIBUTION WIDTH 24.5 % (11.6-17.2); WHITE BLOOD COUNT 7.7 TH/MM3 (4.0-11.0)
[2017-05-23] VITALS (8 sets, daily range): BP systolic 120–142; BP diastolic 70–81; PULSE 93–102; RESP 18–20; TEMP 97.4–98.9; O2SAT 92–100
[2017-05-23 00:14] LABS: ALBUMIN 2.8 GM/DL (3.4-5.0); AST (GOT) 8 U/L (15-37); BICARBONATE 27.1 MEQ/L (21.0-32.0); BLOOD UREA NITROGEN 3 MG/DL (7-18); CALCIUM 8.2 MG/DL (8.5-10.1); CHLORIDE 107 MEQ/L (98-107); CREATININE 0.53 MG/DL (0.50-1.00); GLOMERULAR FILTRATION RATE 161 ML/MIN (>89); GLUCOSE,RANDOM 89 MG/DL (74-106); SODIUM (NA) 141 MEQ/L (136-145)
[2017-05-23 00:15] LABS: ALT (GPT) 13 U/L (10-53)
[2017-05-23 00:17] LABS: ALKALINE PHOSPHATASE 88 U/L (45-117); TOTAL BILIRUBIN ADULT 0.2 MG/DL (0.2-1.0); TOTAL PROTEIN 7.8 GM/DL (6.4-8.2)
[2017-05-23] MEDS: AZITHROMYCIN INJ 500 MG in SODIUM CHLOR 0.9% 250 ML INJ 250 ML IV SCH (01:42)
[2017-05-23] MEDS: VANCOMYCIN INJ 1,250 MG in SODIUM CHLOR 0.9% 250 ML INJ 250 ML IV SCH ×2 (02:38→09:30)
[2017-05-23] MEDS: HYDROmorphone HCL PF 2 MG/ML VIAL IV PUSH PRN ×6 (02:48→21:54)
[2017-05-23] MEDS: RESP: ALBUTEROL 2.5 MG/IPRATROPIUM 0.5 MG NEB (PRN) INH ×5 (04:55→19:53)
[2017-05-23] MEDS: PROMETHAZINE INJ 25 MG/ML VIAL IM PRN ×2 (06:19→13:43)
[2017-05-23] MEDS: diphenhydrAMINE HCL 50 MG/ML VIAL IV PUSH PRN ×3 (06:26→21:54)
[2017-05-23] MEDS: SODIUM CHLOR 0.9% 1000 ML INJ 1,000 ML IV SCH ×2 (06:28→09:31)
[2017-05-23 07:24] LABS: BASOPHIL % 0.5 % (0.0-2.0); EOSINOPHIL # 0.1 TH/MM3 (0-0.4); HEMATOCRIT 27.4 % (35.0-46.0); HEMOGLOBIN 8.9 GM/DL (11.6-15.3); LYMPH % 20.6 % (9.0-44.0); LYMPHOCYTE # 1.6 TH/MM3 (1.0-4.8); MEAN CELL VOLUME 78.1 FL (80.0-100.0); MEAN CORPUSCULAR HEMOGLOBIN 25.3 PG (27.0-34.0); MEAN CORPUSCULAR HGB CONC 32.4 % (32.0-36.0); MEAN PLATELET VOLUME 7.8 FL (7.0-11.0); MONO % 10.8 % (0.0-8.0); MONOCYTE # 0.8 TH/MM3 (0-0.9); NEUT % 66.1 % (16.0-70.0); PLATELET COUNT 380 TH/MM3 (150-450); RED CELL DISTRIBUTION WIDTH 24.3 % (11.6-17.2); WHITE BLOOD COUNT 7.6 TH/MM3 (4.0-11.0)
[2017-05-23 07:33] LABS: BICARBONATE 25.4 MEQ/L (21.0-32.0); C-REACTIVE PROTEIN 5.58 MG/DL (0.00-0.30); CALCIUM 8.1 MG/DL (8.5-10.1); CREATININE 0.59 MG/DL (0.50-1.00)
[2017-05-23] MEDS: SODIUM CHLORIDE 0.9% FLUSH 10 ML FLUSH IV FLUSH SCH ×2 (08:04→21:00)
[2017-05-23] MEDS: FAMOTIDINE 20 MG TAB PO SCH (08:32)
[2017-05-23] MEDS ORDERED: POTASSIUM CHLORIDE 20 MEQ CONTROLLED RELEASE TAB PO ONE (09:30)
[2017-05-23] MEDS: guaiFENesin E.R. 600 MG TAB PO SCH ×2 (09:30→21:00)
--- NOTE | 2017-05-23 09:54 | HHI.FPPN ---
Subjective Remarks Patient states that she continues to have shortness of breath, possibly a little worse today. Her cough is been stable. She continues to complain of epigastric abdominal pain, as well as watery output in her ostomy. Continues to have decreased appetite, nausea but has not vomited. (Arpan Hunt MD R1) Objective Vitals Vital Signs Date Time Temp Pulse Resp B/P (MAP) Pulse Ox O2 Delivery O2 Flow Rate FiO2 05/23/17 08:00 97.4 93 19 127/76 (93) 93 05/23/17 04:58 99 05/23/17 00:00 98.9 102 18 138/70 (92) 100 05/22/17 20:00 98.9 94 18 137/76 (96) 100 05/22/17 19:29 96 05/22/17 12:00 97.4 89 17 129/76 (93) 96 05/22/17 09:43 95 I/O 05/22/17 05/22/17 05/22/17 05/23/17 05/23/17 05/23/17 07:00 15:00 23:00 07:00 15:00 23:00 Intake Total 1270 ml 602.5 ml 1752.5 ml Balance 1270 ml 602.5 ml 1752.5 ml Intake Oral 120 ml 240 ml 240 ml IV Total 1150 ml 362.5 ml 1512.5 ml # Voids 0 5 2 # Bowel Movements 0 (Arpan Hunt MD R1) Result Diagram: 05/23/17 0630 05/23/17 0630 Objective Remarks GENERAL: Obese female lying in bed in no acute distress. Coughing throughout exam. SKIN: Warm and dry. No rash. EYES: No scleral icterus. No injection or drainage. PERRLA. EOMI. HENT: Normocephalic. Atraumatic. MMM. NECK: No visible JVD or lymphadenopathy. CARDIOVASCULAR: Warm and well perfused. Grade 1 systolic murmur best appreciated along the left sternal border. Regular rate and rhythm. RESPIRATORY: Normal respiratory effort. Clear to auscultation bilaterally with no wheezes appreciated GASTROINTESTINAL: Abdomen nondistended. Tender to palpation in the epigastric region. Ostomy in place with watery dark liquid stool. No rebound tenderness or guarding. MUSCULOSKELETAL: Strength grossly WNL. BACK: Without obvious deformity. NEURO/PSYCH: Afocal. Awake, alert, and oriented x3. (Arpan Hunt MD R1) A/P Assessment and Plan Patient is a 31 year old female with a PMH significant for Crohn's disease, ELY on CPAP, chronic sinusitis and anemia who presents today with cough, malaise, and abdominal pain and is admitted for pneumonia with possible Crohn's disease flare. Initial urine culture grew MRSA, repeat cultures pending. Currently on Rocephin, vancomycin, azithromycin. GI consulted Discharge Planning Will need significant clinical improvement before discharge (Arpan Hunt MD R1) Attending Attestation Patient seen and examined at 0715 on rounds; discussed with resident team. I agree with assessment and management as documented and discussed with me. Pt reports SOB is the same this morning. Cough somewhat improved. She reports a sediment in her urine noted last night and a discoloration as well. Nausea continues, but no vomiting. (Ellie Islas MD) Problem List: (1) CAP (community acquired pneumonia) ICD Codes: J18.9 - Pneumonia, unspecified organism Status: Acute Plan: CXR shows patchy basilar airspace disease most characteristic of bronchopneumonia. Patient is maintaining O2 sats on room air. Incidental finding of increasing areas of consolidation in both lung bases medially with scattered nodular densities in both lungs on abdomen/pelvis CT scan Febrile at home, no fevers since admission History of last Humira injection 1 year ago, not currently being treated Chest x-ray on admission showed patchy basilar airspace disease CRP 5.58 Plan: - PPD pending - Treat empirically with Rocephin and Azithromcyin. Added vancomycin after urine culture grew MRSA on 05/2205/22/17--> - sputum cultures pending, urine antigens for strep and legionella negative - Blood cultures pending - Duonebs PRN - Adding guaifenesin for cough - Repeat chest x-ray pending - Respiratory panel pending - Decreasing IV fluids to 75 mL per hour (D5 half-NS with 20 mEq potassium) as patient's shortness of breath worsened (2) Heart murmur ICD Codes: R01.1 - Cardiac murmur, unspecified Plan: Grade 1/6 systolic murmur appreciated along the left sternal border on Patient states that she has had bacteria in her blood in the past Unfortunately, blood cultures during this hospital stay were obtained after initiation of antibiotics Treating with antibiotics as above Echocardiogram pending (3) Hypokalemia ICD Codes: E87.6 - Hypokalemia Plan: Potassium 3.2 on 05/23 Supplementing with 20 mEq of potassium in IV fluids as described above One-time dose of 40 mEq potassium chloride by mouth on 05/23 Follow-up potassium in a.m. labs (4) Abdominal pain ICD Codes: R10.9 - Unspecified abdominal pain Status: Acute Plan: Possibly secondary to Crohn's disease flare versus gastroenteritis Consulted GI for further assistance. Of note, patient has not yet established with a local GI physician. C Diff negative. Stool cultures pending. GI holding steroids for now, considering endoscopy if patient does not improve Continue home dose of Dilaudid 2mg IV q4H PRN pain Continue Phenergan 25mg Q6H IM PRN nausea/vomiting Clear liquid diet as tolerated Initial lipase was not elevated, repeating on 05/24 (5) Intractable vomiting with nausea ICD Codes: R11.2 - Nausea with vomiting, unspecified Status: Acute Plan: CMP wnl, reassuring. No further vomiting but continues to complain of nausea. IV fluids as above (6) Sinusitis chronic, frontal ICD Codes: J32.1 - Chronic frontal sinusitis Status: Acute Plan: Treatment with IV antibiotics as above. Consider further imaging if symptoms worsen (7) Crohns disease ICD Codes: K50.90 - Crohn's disease, unspecified, without complications Status: Acute Plan: Possible acute flare of Crohn's disease. GI consulted Holding steroids for now per GI Pt reports multiple complications from her Crohn's. (8) UTI (urinary tract infection) ICD Codes: N39.0 - Urinary tract infection, site not specified Plan: UCx demonstrates MRSA in urine. Vancomycin 05/22/17 --> Concern for hematogenous spread Repeat urine cultures pending Blood cultures pending Echocardiogram pending Pt with hematuria, but also on her period at this time. (9) ELY (obstructive sleep apnea) ICD Codes: G47.33 - Obstructive sleep apnea (adult) (pediatric) Status: Chronic Plan: Continue CPAP HS. (10) Localized pruritus ICD Codes: L29.9 - Pruritus, unspecified Status: Chronic Plan: Benadryl PRN (11) Abnormal abdominal CT scan ICD Codes: R93.5 - Abnormal findings on diagnostic imaging of other abdominal regions, including retroperitoneum Plan: Incidental finding of increasing areas of consolidation in both lung bases medially with scattered nodular densities in both lungs on abdomen/pelvis CT scan. Discussed these findings with patient. Plan for PET scan as an outpatient. Peripheral blood smear pending Of note, patient has been treated with humira intermittently for years, which may increase incidence of lymphoma. (12) FEN Plan: IV fluids: D5 1 half normal saline +20 mEq potassium at 75 mL per hour Clear liquid diet Replete electrolytes as needed Lovenox 40 mg daily for DVT prophylaxis (Arpan Hunt MD R1) Problem Qualifiers (1) CAP (community acquired pneumonia): (2) Abdominal pain: Qualified Codes: R10.84 - Generalized abdominal pain (3) Intractable vomiting with nausea: Qualified Codes: R11.2 - Nausea with vomiting, unspecified (4) Crohns disease: Qualified Codes: K50.818 - Crohn's disease of both small and large intestine with other complication (5) UTI (urinary tract infection): Qualified Codes: N30.01 - Acute cystitis with hematuria Arpan Hunt MD R1 May 23, 2017 09:54 Ellie Islas MD May 23, 2017 20:19
[2017-05-23] MEDS: D5-1/2 NS + KCL 20 MEQ INJ 1,000 ML IV SCH (10:06)
--- NOTE | 2017-05-23 14:04 | HHI.GIFU ---
Subjective Remarks weakness nausea, no vomiting Watery Diarrhea controlled 10+ times a day Heart rate 100 (Danii Limon) Objective Vitals I&O Vital Signs Date Time Temp Pulse Resp B/P (MAP) Pulse Ox O2 Delivery O2 Flow Rate FiO2 05/23/17 12:00 98.2 100 19 128/76 (93) 92 05/23/17 10:14 100 21 05/23/17 08:00 97.4 93 19 127/76 (93) 93 05/23/17 04:58 99 05/23/17 00:00 98.9 102 18 138/70 (92) 100 05/22/17 20:00 98.9 94 18 137/76 (96) 100 05/22/17 19:29 96 I/O 05/22/17 05/22/17 05/22/17 05/23/17 05/23/17 05/23/17 06:59 14:59 22:59 06:59 14:59 22:59 Intake Total 1270 ml 602.5 ml 1752.5 ml 850 ml Balance 1270 ml 602.5 ml 1752.5 ml 850 ml Intake Oral 120 ml 240 ml 240 ml IV Total 1150 ml 362.5 ml 1512.5 ml 850 ml # Voids 0 5 2 # Bowel Movements 0 Laboratory Laboratory Tests Test 05/22/17 16:50 05/22/17 23:30 05/23/17 06:30 Urine Opiates Screen POS Urine Barbiturates Screen NEG Urine Amphetamines Screen NEG Urine Benzodiazepines Screen NEG Urine Cocaine Screen NEG Urine Cannabinoids Screen NEG White Blood Count 7.7 7.6 Red Blood Count 3.62 3.50 Hemoglobin 9.1 8.9 Hematocrit 28.2 27.4 Mean Corpuscular Volume 77.8 78.1 Mean Corpuscular Hemoglobin 25.0 25.3 Mean Corpuscular Hemoglobin Concent 32.2 32.4 Red Cell Distribution Width 24.5 24.3 Platelet Count 387 380 Mean Platelet Volume 7.8 7.8 Neutrophils (%) (Auto) 64.6 66.1 Lymphocytes (%) (Auto) 21.7 20.6 Monocytes (%) (Auto) 10.9 10.8 Eosinophils (%) (Auto) 2.0 2.0 Basophils (%) (Auto) 0.8 0.5 Neutrophils # (Auto) 5.0 5.0 Lymphocytes # (Auto) 1.7 1.6 Monocytes # (Auto) 0.8 0.8 Eosinophils # (Auto) 0.2 0.1 Basophils # (Auto) 0.1 0.0 CBC Comment AUTO DIFF DIFF FINAL Differential Comment AUTO DIFF CONFIRMED Blood Smear Pathologist Review Blood Urea Nitrogen 3 3 Creatinine 0.53 0.59 Random Glucose 89 104 Total Protein 7.8 Albumin 2.8 Calcium Level 8.2 8.1 Alkaline Phosphatase 88 Aspartate Amino Transf (AST/SGOT) 8 Alanine Aminotransferase (ALT/SGPT) 13 Total Bilirubin 0.2 Sodium Level 141 142 Potassium Level 3.4 3.2 Chloride Level 107 110 Carbon Dioxide Level 27.1 25.4 Anion Gap 7 7 Estimat Glomerular Filtration Rate 161 142 C-Reactive Protein 5.58 Date/Time Source Procedure Growth Status 05/21/17 13:25 Blood Peripheral Aerobic Blood Culture - Preliminary NO GROWTH IN 1 DAY Resulted 05/21/17 13:25 Blood Peripheral Anaerobic Blood Culture - Final QNS - SEE AEROBE REPORT Resulted 05/22/17 23:00 Stool Stool Cryptosporidium Exam Pending Resulted 05/22/17 23:00 Stool Stool Stool Pus (NISSA) - Final NO WBC'S SEEN Resulted 05/22/17 23:00 Stool Stool Giardia Antigen (NISSA) Pending Resulted 05/22/17 23:00 Stool Stool Stool Occult Blood (NISSA) - Final HEMOCCULT NEGATIVE Resulted 05/23/17 06:30 Sputum Expectorated Sputum Gram Stain - Final Resulted 05/23/17 06:30 Sputum Expectorated Sputum Sputum Culture Pending Resulted 05/22/17 16:50 Urine Clean Catch Urine Culture - Preliminary No growth. Resulted Imaging Last Impressions Abdomen/Pelvis CT 05/21/17 1333 Signed Impressions: Service Date/Time: Sunday, May 21, 2017 15:47 - CONCLUSION: 1. Increasing areas of consolidation in both lung bases medially with scattered nodular densities in both lungs, right greater than left. Findings are nonspecific but a neoplastic process cannot be excluded. PET imaging is recommended for further evaluation. 2. There is some fullness in the hilar regions bilaterally. Findings are concerning for prominent hilar lymph nodes. These areas can be evaluated as well. 3. Stable bilateral adnexal cysts. Stable probable cyst off the left adrenal gland. 4. Stable postsurgical changes multiple surgical clips in the left abdomen. Right colostomy. Bradley Higginbotham MD Chest X-Ray 05/21/17 0000 Signed Impressions: Service Date/Time: Sunday, May 21, 2017 19:29 - CONCLUSION: 1. Patchy basilar airspace disease most characteristic of bronchopneumonia. Deyvi Austin MD Physical Exam HEENT: Pupils round and reactive to light; normocephalic; atraumatic; no jaundice. Morbid obesity noted NECK: Neck is supple , thick, CHEST: Chest bilateral diminished breath sounds but no active wheezing CARDIAC: Regular rate and rhythm, heart rate 100 ABDOMEN: Round, Soft, mild bloating, generalized tenderness; bowel sounds active, colostomy EXTREMITIES: No clubbing, cyanosis, or edema. SKIN: Pale; no rash; no jaundice. CUSTOMS MANAGER: No focal deficits; alert and oriented times three., Anxiety mild (Danii Limon) Assessment and Plan Plan ASSESSMENT - n/v, no vomiting today symptoms could be secondary to her acute lung disease and her history of Crohn's disease, the multiple antibiotics for the treatment of her pneumonia. had normal EGD 12/2016. had colonoscopy 02/2017 not aware of abnormal findings. CT unremarkable for acute abd process. no blood in stool or emesis. History of Crohn's disease, recently tried Enytibio, but had allergic reaction to. Currently not taking any other meds, colostomy Diarrhea 10+ watery stools a day uncontrolled with generalized weakness PLAN - Diet full liquids -IV Flagyl initiated, 500 mg IV every 8h -IV steroids initiated, Solu-Medrol 40 mg IV every 8h -PPI IV, Protonix 40 mg IV every 12, Pepcid discontinued - antiemetics - supportive care - further recs to follow pt seen by myself and Dr Louis and this note is written on his behalf (Danii Limon) Physician Comments Patient seen and examined Agree with above Continue current supportive care Monitor labs If diarrhea persists we will need to pursue the colonoscopy to further evaluate and verify (Jose Louis MD) Danii Limon May 23, 2017 14:04 Jose Louis MD May 23, 2017 21:09
[2017-05-23] MEDS: cefTRIAXone INJ 1,000 MG in SODIUM CHLORIDE 0.9% INJ 100 ML IV SCH (14:13)
--- NOTE | 2017-05-23 15:00 | RADRPT ---
EXAM DATE/TIME: 05/23/2017 14:43 [facility] COMPARISON: CHEST PA & LAT, May 21, 2017, 19:29. INDICATIONS : Productive cough and short of breath. MEDICAL HISTORY : [place] SURGICAL HISTORY : [place] ENCOUNTER: Subsequent ACUITY: 2 days PAIN SCORE: 0/10 LOCATION: Bilateral chest FINDINGS: Isn't oriented position. Lungs are under aerated bibasilar parenchymal changes worse on the right th an the left. Cardiac silhouette is prominent prominent base of underaeration. There is no pneumotho rax or pleural effusion. CONCLUSION: Bibasilar parenchymal changes worse on the left. Wm Reece MD FACR on May 23, 2017 at 14:57 Board Certified Radiologist. This report was verified electronically.
[2017-05-23] MEDS: PANTOPRAZOLE SODIUM 40 MG VIAL IV PUSH SCH ×2 (15:54→21:53)
[2017-05-23] MEDS: methylPREDNISolone SOD SUCC 40 MG/1 ML VIAL IV PUSH SCH ×2 (15:54→21:55)
[2017-05-23] MEDS: metroNIDAZOLE 500 MG INJ 100 ML IV SCH ×2 (15:54→23:27)
[2017-05-23] MEDS: VANCOMYCIN INJ 2,000 MG in SODIUM CHLORID 0.9% 500 ML INJ 500 ML IV SCH (17:33)
[2017-05-23] MEDS: SKIN TEST RESULT OTHER SCH (20:00)
[2017-05-23] MEDS: ENOXAPARIN SODIUM 40 MG/0.4 ML SYRINGE SQ SCH (21:52)
[2017-05-23] MEDS: PROMETHAZINE INJ 25 MG/ML VIAL IV-CENTRAL PRN (21:54)
[2017-05-24] VITALS: BP 136/84; PULSE 83; RESP 18; TEMP 96.8; O2SAT 94
[2017-05-24] MEDS: AZITHROMYCIN INJ 500 MG in SODIUM CHLOR 0.9% 250 ML INJ 250 ML IV SCH (01:40)
[2017-05-24] MEDS: HYDROmorphone HCL PF 2 MG/ML VIAL IV PUSH PRN ×6 (01:41→22:30)
[2017-05-24] MEDS: diphenhydrAMINE HCL 50 MG/ML VIAL IV PUSH PRN ×3 (04:34→18:12)
[2017-05-24] MEDS: PROMETHAZINE INJ 25 MG/ML VIAL IV-CENTRAL PRN ×3 (04:35→18:12)
[2017-05-24] MEDS: methylPREDNISolone SOD SUCC 40 MG/1 ML VIAL IV PUSH SCH ×3 (05:27→22:26)
[2017-05-24] MEDS: D5-1/2 NS + KCL 20 MEQ INJ 1,000 ML IV SCH ×2 (05:31→22:31)
[2017-05-24] MEDS: VANCOMYCIN INJ 2,000 MG in SODIUM CHLORID 0.9% 500 ML INJ 500 ML IV SCH (05:31)
[2017-05-24] MEDS ORDERED: PHARMACY ORDERED LAB ONE (05:45)
[2017-05-24 06:50] LABS: BICARBONATE 27.1 MEQ/L (21.0-32.0); CALCIUM 8.9 MG/DL (8.5-10.1); CREATININE 0.52 MG/DL (0.50-1.00)
[2017-05-24 06:51] LABS: VANCOMYCIN TROUGH 10.7 MCG/ML (5.0-10.0)
[2017-05-24 07:04] LABS: AUTOMATED NEUTROPHIL # 6.3 TH/MM3 (1.8-7.7); BASOPHIL % 0.1 % (0.0-2.0); HEMATOCRIT 30.4 % (35.0-46.0); HEMOGLOBIN 9.8 GM/DL (11.6-15.3); LYMPH % 13.1 % (9.0-44.0); MEAN CELL VOLUME 77.8 FL (80.0-100.0); MEAN CORPUSCULAR HEMOGLOBIN 25.1 PG (27.0-34.0); MEAN CORPUSCULAR HGB CONC 32.3 % (32.0-36.0); MEAN PLATELET VOLUME 7.9 FL (7.0-11.0); MONO % 3.3 % (0.0-8.0); MONOCYTE # 0.3 TH/MM3 (0-0.9); NEUT % 83.5 % (16.0-70.0); PLATELET COUNT 461 TH/MM3 (150-450); RED BLOOD COUNT 3.91 MIL/MM3 (4.00-5.30); RED CELL DISTRIBUTION WIDTH 24.2 % (11.6-17.2); WHITE BLOOD COUNT 7.6 TH/MM3 (4.0-11.0)
[2017-05-24 08:00] VITALS: BP 146/88; PULSE 92; RESP 20; TEMP 97.4; O2SAT 95
[2017-05-24] MEDS: metroNIDAZOLE 500 MG INJ 100 ML IV SCH ×3 (08:26→22:27)
[2017-05-24] MEDS: guaiFENesin E.R. 600 MG TAB PO SCH ×2 (08:26→22:25)
[2017-05-24] MEDS: SODIUM CHLORIDE 0.9% FLUSH 10 ML FLUSH IV FLUSH SCH ×2 (08:27→22:29)
[2017-05-24] MEDS: PANTOPRAZOLE SODIUM 40 MG VIAL IV PUSH SCH ×2 (08:27→22:27)
[2017-05-24] MEDS: RESP: ALBUTEROL 2.5 MG/IPRATROPIUM 0.5 MG NEB (PRN) INH ×2 (09:56→20:15)
--- NOTE | 2017-05-24 11:35 | HHI.FPPN ---
Subjective Remarks No acute events overnight. Patient states that she is feeling a little better today. Appetite has improved. Continues to have watery output in her ostomy. Shortness of breath/cough has improved today. Denies chest pain (Arpan Hunt MD R1) Objective Vitals Vital Signs Date Time Temp Pulse Resp B/P (MAP) Pulse Ox O2 Delivery O2 Flow Rate FiO2 05/24/17 08:00 97.4 92 20 146/88 (107) 95 05/24/17 00:00 96.8 83 18 136/84 (101) 94 05/23/17 20:00 98.2 98 20 120/76 (91) 93 05/23/17 19:53 97 21 05/23/17 16:00 98.4 100 19 142/81 (101) 97 05/23/17 12:00 98.2 100 19 128/76 (93) 92 I/O 05/23/17 05/23/17 05/23/17 05/24/17 05/24/17 05/24/17 07:00 15:00 23:00 07:00 15:00 23:00 Intake Total 1752.5 ml 850 ml 1080 ml 1310 ml 120 ml Balance 1752.5 ml 850 ml 1080 ml 1310 ml 120 ml Intake Oral 240 ml 360 ml 960 ml 120 ml IV Total 1512.5 ml 850 ml 720 ml 350 ml # Voids 2 5 (Arpan Hunt MD R1) Result Diagram: 05/24/17 0630 05/24/17 0000 Objective Remarks GENERAL: Obese female lying in bed in no acute distress. Breathing more comfortably today. SKIN: Warm and dry. No rash. EYES: No scleral icterus. No injection or drainage. PERRLA. EOMI. HENT: Normocephalic. Atraumatic. MMM. NECK: No visible JVD or lymphadenopathy. CARDIOVASCULAR: Warm and well perfused. No murmur appreciated on today's exam. Regular rate and rhythm. RESPIRATORY: Normal respiratory effort. Clear to auscultation bilaterally with no wheezes appreciated GASTROINTESTINAL: Abdomen nondistended. Tender to palpation in the epigastric region. Ostomy in place with watery dark liquid stool. No rebound tenderness or guarding. MUSCULOSKELETAL: Strength grossly WNL. BACK: Without obvious deformity. NEURO/PSYCH: Afocal. Awake, alert, and oriented x3. (Arpan Hunt MD R1) A/P Assessment and Plan Patient is a 31 year old female with a PMH significant for Crohn's disease, ELY on CPAP, chronic sinusitis and anemia who presents today with cough, malaise, and abdominal pain and is admitted for pneumonia with possible Crohn's disease flare. Initial urine culture grew MRSA, repeat cultures pending. Currently on Rocephin, vancomycin, azithromycin. GI consulted Discharge Planning Will need significant clinical improvement before discharge (Arpan Hunt MD R1) Attending Attestation Patient seen, examined, and discussed with Dr. Hunt during rounds this morning. I agree with assessment and management as documented and discussed with me. Pt feels she is starting to "turn a corner" since starting Flagyl and steroids. Although watery output from ostomy, the amount has decreased a bit. Continue current antibiotic regimen. (Ellie Islas MD) Problem List: (1) CAP (community acquired pneumonia) ICD Codes: J18.9 - Pneumonia, unspecified organism Status: Acute Plan: CXR shows patchy basilar airspace disease most characteristic of bronchopneumonia. Patient is maintaining O2 sats on room air. Incidental finding of increasing areas of consolidation in both lung bases medially with scattered nodular densities in both lungs on abdomen/pelvis CT scan Febrile at home, no fevers since admission History of last Humira injection 1 year ago, not currently being treated Chest x-ray on admission showed patchy basilar airspace disease, repeat on 05/23 with no significant changes CRP 5.58 Plan: - PPD pending - Treat empirically with Rocephin and Azithromcyin. Added vancomycin after urine culture grew MRSA on 05/2205/22/17--> - sputum cultures revealed normal respiratory domingo, urine antigens for strep and legionella negative - Blood cultures no growth in 2 days - Duonebs PRN - Respiratory panel pending - Continuing IV fluids to 75 mL per hour (D5 half-NS with 20 mEq potassium) (2) Abdominal pain ICD Codes: R10.9 - Unspecified abdominal pain Status: Acute Plan: Possibly secondary to Crohn's disease flare versus gastroenteritis Consulted GI for further assistance. Of note, patient has not yet established with a local GI physician. C Diff negative. Stool cultures pending. Per GI recommendations IV Flagyl initiated, 500 mg IV every 8h IV steroids initiated, Solu-Medrol 40 mg IV every 8h PPI IV, Protonix 40 mg IV every 12, Pepcid discontinued Continue home dose of Dilaudid 2mg IV q4H PRN pain Continue Phenergan 25mg Q6H IM PRN nausea/vomiting Advancing to full liquid diet, advance as tolerated Lipase WNL (3) Heart murmur ICD Codes: R01.1 - Cardiac murmur, unspecified Plan: Grade 1/6 systolic murmur appreciated along the left sternal border on Patient states that she has had bacteria in her blood in the past Unfortunately, blood cultures during this hospital stay were obtained after initiation of antibiotics Treating with antibiotics as above Echocardiogram pending (4) Intractable vomiting with nausea ICD Codes: R11.2 - Nausea with vomiting, unspecified Status: Acute Plan: CMP wnl, reassuring. No further vomiting, nausea improving IV fluids as above (5) Crohns disease ICD Codes: K50.90 - Crohn's disease, unspecified, without complications Status: Acute Plan: Possible acute flare of Crohn's disease. GI consulted Started IV Solu-Medrol 40 mg every 8 hours on 05/23 Pt reports multiple complications from her Crohn's. (6) UTI (urinary tract infection) ICD Codes: N39.0 - Urinary tract infection, site not specified Plan: UCx demonstrates MRSA in urine. Also growing gram-negative rods. Vancomycin 05/22/17 --> Concern for hematogenous spread Repeat urine cultures pending Blood cultures no growth in 48 hours Echocardiogram pending Pt with hematuria, but also on her period at this time. (7) ELY (obstructive sleep apnea) ICD Codes: G47.33 - Obstructive sleep apnea (adult) (pediatric) Status: Chronic Plan: Continue CPAP HS. (8) Localized pruritus ICD Codes: L29.9 - Pruritus, unspecified Status: Chronic Plan: Benadryl PRN (9) Abnormal abdominal CT scan ICD Codes: R93.5 - Abnormal findings on diagnostic imaging of other abdominal regions, including retroperitoneum Plan: Incidental finding of increasing areas of consolidation in both lung bases medially with scattered nodular densities in both lungs on abdomen/pelvis CT scan. Discussed these findings with patient. Plan for PET scan as an outpatient. Peripheral blood smear showing moderate hypochromic microcytic anemia Of note, patient has been treated with humira intermittently for years, which may increase incidence of lymphoma. (10) FEN Plan: IV fluids: D5 1 half normal saline +20 mEq potassium at 75 mL per hour Full liquid diet Replete electrolytes as needed Lovenox 40 mg daily for DVT prophylaxis (Arpan Hunt MD R1) Problem Qualifiers (1) CAP (community acquired pneumonia): (2) Abdominal pain: Qualified Codes: R10.84 - Generalized abdominal pain (3) Intractable vomiting with nausea: Qualified Codes: R11.2 - Nausea with vomiting, unspecified (4) Crohns disease: Qualified Codes: K50.818 - Crohn's disease of both small and large intestine with other complication (5) UTI (urinary tract infection): Qualified Codes: N30.01 - Acute cystitis with hematuria Arpan Hunt MD R1 May 24, 2017 11:35 Ellie Islas MD May 24, 2017 16:59
[2017-05-24 12:00] VITALS: BP 132/73; PULSE 91; RESP 19; TEMP 97.4; O2SAT 95
--- NOTE | 2017-05-24 13:01 | HHI.GIFU ---
Subjective Remarks Pt resting in bed. Says she has had some improvement in n/v and abd pain. Trying full liquid lunch. stool less watery today (Keiry Baca) Objective Vitals I&O Vital Signs Date Time Temp Pulse Resp B/P (MAP) Pulse Ox O2 Delivery O2 Flow Rate FiO2 05/24/17 08:00 97.4 92 20 146/88 (107) 95 05/24/17 00:00 96.8 83 18 136/84 (101) 94 05/23/17 20:00 98.2 98 20 120/76 (91) 93 05/23/17 19:53 97 21 05/23/17 16:00 98.4 100 19 142/81 (101) 97 I/O 05/23/17 05/23/17 05/23/17 05/24/17 05/24/17 05/24/17 07:00 15:00 23:00 07:00 15:00 23:00 Intake Total 1752.5 ml 850 ml 1080 ml 1310 ml 120 ml Balance 1752.5 ml 850 ml 1080 ml 1310 ml 120 ml Intake Oral 240 ml 360 ml 960 ml 120 ml IV Total 1512.5 ml 850 ml 720 ml 350 ml # Voids 2 5 Laboratory Laboratory Tests Test 05/24/17 00:00 05/24/17 06:30 Blood Urea Nitrogen 2 Creatinine 0.52 Random Glucose 139 Calcium Level 8.9 Sodium Level 142 Potassium Level 3.8 Chloride Level 109 Carbon Dioxide Level 27.1 Anion Gap 6 Estimat Glomerular Filtration Rate 164 Lipase 38 Vancomycin Level Trough 10.7 White Blood Count 7.6 Red Blood Count 3.91 Hemoglobin 9.8 Hematocrit 30.4 Mean Corpuscular Volume 77.8 Mean Corpuscular Hemoglobin 25.1 Mean Corpuscular Hemoglobin Concent 32.3 Red Cell Distribution Width 24.2 Platelet Count 461 Mean Platelet Volume 7.9 Neutrophils (%) (Auto) 83.5 Lymphocytes (%) (Auto) 13.1 Monocytes (%) (Auto) 3.3 Eosinophils (%) (Auto) 0.0 Basophils (%) (Auto) 0.1 Neutrophils # (Auto) 6.3 Lymphocytes # (Auto) 1.0 Monocytes # (Auto) 0.3 Eosinophils # (Auto) 0.0 Basophils # (Auto) 0.0 CBC Comment AUTO DIFF Differential Comment AUTO DIFF CONFIRMED Date/Time Source Procedure Growth Status 05/21/17 13:25 Blood Peripheral Aerobic Blood Culture - Preliminary NO GROWTH IN 2 DAYS Resulted 05/21/17 13:25 Blood Peripheral Anaerobic Blood Culture - Final QNS - SEE AEROBE REPORT Resulted 05/22/17 23:00 Stool Stool Cryptosporidium Exam - Final NEGATIVE - NO CRYPTOSPORIDIUM ANTIGEN... Complete 05/22/17 23:00 Stool Stool Stool Pus (NISSA) - Final NO WBC'S SEEN Complete 05/22/17 23:00 Stool Stool Giardia Antigen (NISSA) - Final NEGATIVE - NO GIARDIA ANTIGEN DETECTE... Complete 05/22/17 23:00 Stool Stool Stool Occult Blood (NISSA) - Final HEMOCCULT NEGATIVE Complete 05/23/17 06:30 Sputum Expectorated Sputum Gram Stain - Final Resulted 05/23/17 06:30 Sputum Expectorated Sputum Sputum Culture - Preliminary HEAVY GROWTH NORMAL RESPIRATORY INA... Resulted 05/22/17 16:50 Urine Clean Catch Urine Culture - Final Sara Albicans Complete Imaging Last Impressions Chest X-Ray 05/23/17 0000 Signed Impressions: Service Date/Time: Tuesday, May 23, 2017 14:43 - CONCLUSION: Bibasilar parenchymal changes worse on the left. Wm Reece MD FACR Abdomen/Pelvis CT 05/21/17 1333 Signed Impressions: Service Date/Time: Sunday, May 21, 2017 15:47 - CONCLUSION: 1. Increasing areas of consolidation in both lung bases medially with scattered nodular densities in both lungs, right greater than left. Findings are nonspecific but a neoplastic process cannot be excluded. PET imaging is recommended for further evaluation. 2. There is some fullness in the hilar regions bilaterally. Findings are concerning for prominent hilar lymph nodes. These areas can be evaluated as well. 3. Stable bilateral adnexal cysts. Stable probable cyst off the left adrenal gland. 4. Stable postsurgical changes multiple surgical clips in the left abdomen. Right colostomy. Bradley Higginbotham MD Physical Exam HEENT: PERRL; normocephalic; atraumatic; no jaundice. CHEST: diminished CARDIAC: RRR ABDOMEN: Obese, Soft, diffuse TTP; bowel sounds active, colostomy with liquid watery stool but less watery today EXTREMITIES: No clubbing, cyanosis, or edema. SKIN: Pale; no rash; no jaundice. LANDSCAPING SPECIALIST: No focal deficits; alert and oriented times three. (Keiry Baca) Assessment and Plan Plan ASSESSMENT - n/v, epigastric pain - unclear etiology. had normal EGD 12/2016. had colonoscopy 02/2017 not aware of abnormal findings. CT unremarkable for acute abd process. no blood in stool or emesis. may not be Crohn's flare, will hold off on giving steroids for now 05/23/17 no vomiting today symptoms could be secondary to her acute lung disease and her history of Crohn's disease, t he multiple antibiotics for the treatment of her pneumonia. recently tried Enytibio, but had allergic reaction to. 05/24/17 some improvement today. trial full liquids. stool less watery/clear PLAN - Diet full liquids -IV Flagyl -IV steroids initiated - IV protonix - EGD/colonoscopy if sx persist - antiemetics PRN - supportive care pt seen by myself and Dr Louis and this note is written on his behalf (Keiry Baca) Physician Comments Patient seen and examined Agree with above Continue with current supportive care Monitor labs (Jose Louis MD) Keiry Baca May 24, 2017 13:01 Jose Louis MD May 24, 2017 21:57
--- NOTE | 2017-05-24 15:35 | ECHRPT ---
Indication: SOB CONCLUSIONS Normal left ventricular size. Wall thickness is normal. The left ventricular systolic function is low normal with an estimated ejection fraction in the rang e of 50- 55%. There is estimated moderate pulmonary hypertension present ( 56 mmHg). BP: 127 / 76 HR: 93 Rhythm: MEASUREMENTS (Male / Female) Normal Values Technical Quality:Good 2D ECHO LV Diastolic Diameter PLAX 4.5 cm 4.2 - 5.9 / 3.9 - 5.3 cm LV Systolic Diameter PLAX 3.5 cm IVS Diastolic Thickness 1.3 cm 0.6 - 1.0 / 0.6 - 0.9 cm LVPW Diastolic Thickness 0.9 cm 0.6 - 1.0 / 0.6 - 0.9 cm LV Relative Wall Thickness 0.5 RV Internal Dim ED PLAX 2.2 cm LA Systolic Diameter LX 3.2 cm 3.0 - 4.0 / 2.7 - 3.8 cm M-MODE Aortic Root Diameter MM 3.2 cm AV Cusp Separation MM 2.2 cm DOPPLER Mitral E Point Velocity 121.0 cm/s Mitral A Point Velocity 156.0 cm/s Mitral E to A Ratio 0.8 TR Peak Velocity 338.0 cm/s TR Peak Gradient 45.7 mmHg Right Atrial Pressure 10.0 mmHg Pulmonary Artery Systolic Pressu 55.7 mmHg Right Ventricular Systolic Press 55.7 mmHg FINDINGS LEFT VENTRICLE Normal left ventricular size. Wall thickness is normal. The left ventricular systolic function is low normal with an estimated ejection fraction in the rang e of 50- 55%. RIGHT VENTRICLE Normal right ventricular size and systolic function. LEFT ATRIUM The left atrial size is normal. RIGHT ATRIUM The right atrial size is normal. ATRIAL SEPTUM Normal atrial septal thickness without atrial level shunting by limited color doppler interrogation. AORTA The aortic root and proximal ascending aorta are normal in size on limited imaging. MITRAL VALVE Structurally normal mitral valve. No mitral valve stenosis or regurgitation. AORTIC VALVE Trileaflet aortic valve. No aortic valve stenosis or regurgitation. TRICUSPID VALVE There is estimated moderate pulmonary hypertension present ( 56 mmHg). PULMONARY VALVE No pulmonary valve regurgitation or stenosis. VESSELS The inferior vena cava is normal in size. PERICARDIUM No pericardial effusion. Shubham Matthew MD, FACC, FSCAI (Electronically Signed) Final Date:24 May 2017 15:33
[2017-05-24] MEDS: cefTRIAXone INJ 1,000 MG in SODIUM CHLORIDE 0.9% INJ 100 ML IV SCH (15:51)
[2017-05-24 16:00] VITALS: BP 141/89; PULSE 94; RESP 19; TEMP 97.2; O2SAT 96
[2017-05-24] MEDS: VANCOMYCIN INJ 2,250 MG in SODIUM CHLORID 0.9% 500 ML INJ 500 ML IV SCH (18:07)
[2017-05-24 20:00] VITALS: BP 133/87; PULSE 90; RESP 18; TEMP 98.1; O2SAT 94
[2017-05-24] MEDS: SKIN TEST RESULT OTHER SCH (20:00)
[2017-05-24] MEDS: ENOXAPARIN SODIUM 40 MG/0.4 ML SYRINGE SQ SCH (22:25)
[2017-05-25] VITALS: BP 139/85; PULSE 70; RESP 20; TEMP 98.4; O2SAT 97
[2017-05-25] MEDS: AZITHROMYCIN INJ 500 MG in SODIUM CHLOR 0.9% 250 ML INJ 250 ML IV SCH (02:17)
[2017-05-25] MEDS: diphenhydrAMINE HCL 50 MG/ML VIAL IV PUSH PRN ×4 (02:19→22:34)
[2017-05-25] MEDS: PROMETHAZINE INJ 25 MG/ML VIAL IV-CENTRAL PRN ×4 (02:20→22:34)
[2017-05-25] MEDS: HYDROmorphone HCL PF 2 MG/ML VIAL IV PUSH PRN ×6 (02:26→22:35)
[2017-05-25] MEDS: VANCOMYCIN INJ 2,250 MG in SODIUM CHLORID 0.9% 500 ML INJ 500 ML IV SCH (06:18)
[2017-05-25] MEDS: D5-1/2 NS + KCL 20 MEQ INJ 1,000 ML IV SCH (06:18)
[2017-05-25] MEDS: methylPREDNISolone SOD SUCC 40 MG/1 ML VIAL IV PUSH SCH ×3 (06:18→22:35)
[2017-05-25] MEDS: metroNIDAZOLE 500 MG INJ 100 ML IV SCH ×3 (06:19→22:38)
[2017-05-25 07:06] LABS: AUTOMATED NEUTROPHIL # 10.1 TH/MM3 (1.8-7.7); BASOPHIL % 0.1 % (0.0-2.0); HEMATOCRIT 27.3 % (35.0-46.0); HEMOGLOBIN 8.7 GM/DL (11.6-15.3); LYMPH % 8.8 % (9.0-44.0); MEAN CELL VOLUME 78.9 FL (80.0-100.0); MEAN CORPUSCULAR HEMOGLOBIN 25.2 PG (27.0-34.0); MEAN CORPUSCULAR HGB CONC 31.9 % (32.0-36.0); MEAN PLATELET VOLUME 8.1 FL (7.0-11.0); MONO % 6.3 % (0.0-8.0); MONOCYTE # 0.8 TH/MM3 (0-0.9); NEUT % 84.8 % (16.0-70.0); PLATELET COUNT 414 TH/MM3 (150-450); RED BLOOD COUNT 3.46 MIL/MM3 (4.00-5.30); RED CELL DISTRIBUTION WIDTH 24.1 % (11.6-17.2); WHITE BLOOD COUNT 11.9 TH/MM3 (4.0-11.0)
[2017-05-25 07:29] LABS: CALCIUM 8.8 MG/DL (8.5-10.1); CREATININE 0.63 MG/DL (0.50-1.00)
[2017-05-25 08:00] VITALS: BP 148/90; PULSE 68; RESP 19; TEMP 97.8; O2SAT 97
[2017-05-25] MEDS: SODIUM CHLORIDE 0.9% FLUSH 10 ML FLUSH IV FLUSH SCH ×2 (09:00→22:38)
[2017-05-25] MEDS: guaiFENesin E.R. 600 MG TAB PO SCH ×2 (09:00→22:38)
[2017-05-25] MEDS: PANTOPRAZOLE SODIUM 40 MG VIAL IV PUSH SCH ×2 (09:07→22:37)
--- NOTE | 2017-05-25 10:24 | HHI.GIFU ---
Subjective Remarks Pt resting in bed in NAD, asking RN to assist with forms for missed work. She says she had a bite of food this morning and had abd pain, but she has eaten an entire container of [place] sherbet. Seems to be eating as RN has cleaned up food wrappers and pt has been requesting large amounts of apple juice. Liquid stool ostomy. (Keiry Baca) Objective Vitals I&O Vital Signs Date Time Temp Pulse Resp B/P (MAP) Pulse Ox O2 Delivery O2 Flow Rate FiO2 05/25/17 08:00 97.8 68 19 148/90 (109) 97 05/25/17 00:00 98.4 70 20 139/85 (103) 97 05/24/17 20:00 98.1 90 18 133/87 (102) 94 05/24/17 16:00 97.2 94 19 141/89 (106) 96 05/24/17 12:00 97.4 91 19 132/73 (92) 95 I/O 05/24/17 05/24/17 05/24/17 05/25/17 05/25/17 05/25/17 07:00 15:00 23:00 07:00 15:00 23:00 Intake Total 1310 ml 220 ml 200 ml 1920 ml 240 ml Balance 1310 ml 220 ml 200 ml 1920 ml 240 ml Intake Oral 960 ml 120 ml 1920 ml 240 ml IV Total 350 ml 100 ml 200 ml Laboratory Laboratory Tests Test 05/25/17 06:25 White Blood Count 11.9 Red Blood Count 3.46 Hemoglobin 8.7 Hematocrit 27.3 Mean Corpuscular Volume 78.9 Mean Corpuscular Hemoglobin 25.2 Mean Corpuscular Hemoglobin Concent 31.9 Red Cell Distribution Width 24.1 Platelet Count 414 Mean Platelet Volume 8.1 Neutrophils (%) (Auto) 84.8 Lymphocytes (%) (Auto) 8.8 Monocytes (%) (Auto) 6.3 Eosinophils (%) (Auto) 0.0 Basophils (%) (Auto) 0.1 Neutrophils # (Auto) 10.1 Lymphocytes # (Auto) 1.0 Monocytes # (Auto) 0.8 Eosinophils # (Auto) 0.0 Basophils # (Auto) 0.0 CBC Comment AUTO DIFF Differential Comment AUTO DIFF CONFIRMED Blood Urea Nitrogen 5 Creatinine 0.63 Random Glucose 141 Calcium Level 8.8 Sodium Level 143 Potassium Level 4.0 Chloride Level 107 Carbon Dioxide Level 28.0 Anion Gap 8 Estimat Glomerular Filtration Rate 132 Date/Time Source Procedure Growth Status 05/21/17 13:25 Blood Peripheral Aerobic Blood Culture - Preliminary NO GROWTH IN 2 DAYS Resulted 05/21/17 13:25 Blood Peripheral Anaerobic Blood Culture - Final QNS - SEE AEROBE REPORT Resulted 05/22/17 23:00 Stool Stool Cryptosporidium Exam - Final NEGATIVE - NO CRYPTOSPORIDIUM ANTIGEN... Complete 05/22/17 23:00 Stool Stool Stool Pus (NISSA) - Final NO WBC'S SEEN Complete 05/22/17 23:00 Stool Stool Giardia Antigen (NISSA) - Final NEGATIVE - NO GIARDIA ANTIGEN DETECTE... Complete 05/22/17 23:00 Stool Stool Stool Occult Blood (NISSA) - Final HEMOCCULT NEGATIVE Complete 05/23/17 06:30 Sputum Expectorated Sputum Gram Stain - Final Complete 05/23/17 06:30 Sputum Expectorated Sputum Sputum Culture - Final HEAVY GROWTH NORMAL RESPIRATORY INA Complete 05/22/17 16:50 Urine Clean Catch Urine Culture - Final Sara Albicans Complete Imaging Last Impressions Chest X-Ray 05/23/17 0000 Signed Impressions: Service Date/Time: Tuesday, May 23, 2017 14:43 - CONCLUSION: Bibasilar parenchymal changes worse on the left. Wm Reece MD FACR Abdomen/Pelvis CT 05/21/17 1333 Signed Impressions: Service Date/Time: Sunday, May 21, 2017 15:47 - CONCLUSION: 1. Increasing areas of consolidation in both lung bases medially with scattered nodular densities in both lungs, right greater than left. Findings are nonspecific but a neoplastic process cannot be excluded. PET imaging is recommended for further evaluation. 2. There is some fullness in the hilar regions bilaterally. Findings are concerning for prominent hilar lymph nodes. These areas can be evaluated as well. 3. Stable bilateral adnexal cysts. Stable probable cyst off the left adrenal gland. 4. Stable postsurgical changes multiple surgical clips in the left abdomen. Right colostomy. Bradley Higginbotham MD Physical Exam HEENT: PERRL; normocephalic; atraumatic; no jaundice. CHEST: diminished CARDIAC: RRR ABDOMEN: Obese, Soft, diffuse TTP; bowel sounds active, colostomy with liquid watery stool EXTREMITIES: No clubbing, cyanosis, or edema. SKIN: Pale; no rash; no jaundice. AFFILIATE MARKETING COORDINATOR: No focal deficits; alert and oriented times three. (Keiry Baca) Assessment and Plan Plan ASSESSMENT - n/v, epigastric pain - unclear etiology. had normal EGD 12/2016. had colonoscopy 02/2017 not aware of abnormal findings. CT unremarkable for acute abd process. no blood in stool or emesis. may not be Crohn's flare, will hold off on giving steroids for now 05/23/17 no vomiting today symptoms could be secondary to her acute lung disease and her history of Crohn's disease, t he multiple antibiotics for the treatment of her pneumonia. recently tried Enytibio, but had allergic reaction to. 05/24/17 some improvement today. trial full liquids. stool less watery/clear 05/25/17 tolerating full liquid diet and eating alec crackers as well. Drinking plenty of fluids. still with abd pain. no n/v. watery stool in ostomy but pt drinking copious amounts apple juice PLAN - low residue heart healthy diet -IV Flagyl -IV steroids - IV protonix - antiemetics PRN - supportive care pt seen by myself and Dr Louis and this note is written on his behalf (Keiry Baca) Physician Comments Patient seen and examined Agree with above Continue with current supportive care Monitor labs (Jose Louis MD) Keiry Baca May 25, 2017 10:24 Jose Louis MD May 25, 2017 19:32
--- NOTE | 2017-05-25 10:41 | HHI.FPPN ---
Subjective Remarks No acute events overnight. Vital signs remained stable. Patient states she is feeling a little better this morning but continues to complain of upset stomach/ nausea with intake. She reports her shortness of breath is likely better this morning. Denies chest pain, shortness of breath, vomiting. Objective Vitals Vital Signs Date Time Temp Pulse Resp B/P (MAP) Pulse Ox O2 Delivery O2 Flow Rate FiO2 05/25/17 08:00 97.8 68 19 148/90 (109) 97 05/25/17 00:00 98.4 70 20 139/85 (103) 97 05/24/17 20:00 98.1 90 18 133/87 (102) 94 05/24/17 16:00 97.2 94 19 141/89 (106) 96 05/24/17 12:00 97.4 91 19 132/73 (92) 95 I/O 05/24/17 05/24/17 05/24/17 05/25/17 05/25/17 05/25/17 07:00 15:00 23:00 07:00 15:00 23:00 Intake Total 1310 ml 220 ml 200 ml 1920 ml 240 ml Balance 1310 ml 220 ml 200 ml 1920 ml 240 ml Intake Oral 960 ml 120 ml 1920 ml 240 ml IV Total 350 ml 100 ml 200 ml Result Diagram: 05/25/1762405/25/17624 Objective Remarks GENERAL: Obese female lying in bed in no acute distress. Breathing comfortably and speaking in full sentences. SKIN: Warm and dry. No rash. EYES: No scleral icterus. No injection or drainage. PERRLA. EOMI. HENT: Normocephalic. Atraumatic. MMM. NECK: No visible JVD or lymphadenopathy. CARDIOVASCULAR: Warm and well perfused. No murmur appreciated on today's exam. Regular rate and rhythm. RESPIRATORY: Normal respiratory effort. Clear to auscultation bilaterally with no wheezes appreciated GASTROINTESTINAL: Abdomen nondistended. Tender to palpation in the epigastric region. Ostomy in place with watery dark liquid stool - slightly more formed today. No rebound tenderness or guarding. MUSCULOSKELETAL: Strength grossly WNL. BACK: Without obvious deformity. NEURO/PSYCH: Afocal. Awake, alert, and oriented x3. A/P Assessment and Plan Patient is a 31 year old female with a PMH significant for Crohn's disease, ELY on CPAP, chronic sinusitis and anemia who presents today with cough, malaise, and abdominal pain and is admitted for pneumonia with possible Crohn's disease flare. Initial urine culture grew MRSA, repeat cultures pending. Currently on Rocephin, vancomycin, azithromycin. GI consulted Discharge Planning Will need significant clinical improvement before discharge Problem List: (1) CAP (community acquired pneumonia) ICD Codes: J18.9 - Pneumonia, unspecified organism Status: Acute Plan: CXR shows patchy basilar airspace disease most characteristic of bronchopneumonia. Patient is maintaining O2 sats on room air. Incidental finding of increasing areas of consolidation in both lung bases medially with scattered nodular densities in both lungs on abdomen/pelvis CT scan Febrile at home, no fevers since admission History of last Humira injection 1 year ago, not currently being treated Chest x-ray on admission showed patchy basilar airspace disease, repeat on 05/23 with no significant changes CRP 5.58 Plan: - PPD pending - Treat empirically with Rocephin and Azithromcyin. 05/22/17--> - sputum cultures revealed normal respiratory domingo, urine antigens for strep and legionella negative - Blood cultures no growth in 2 days - Duonebs PRN - Respiratory panel pending - Discontinuing IV fluids as patient is tolerating fluid intake (2) Abdominal pain ICD Codes: R10.9 - Unspecified abdominal pain Status: Acute Plan: Possibly secondary to Crohn's disease flare versus gastroenteritis Consulted GI for further assistance. Of note, patient has not yet established with a local GI physician. C Diff negative. Stool cultures negative. Per GI recommendations IV Flagyl initiated, 500 mg IV every 8h (initiated on 05/23) IV steroids initiated, Solu-Medrol 40 mg IV every 8h (initiated on 05/23) PPI IV, Protonix 40 mg IV every 12, Pepcid discontinued Continue home dose of Dilaudid 2mg IV q4H PRN pain Continue Phenergan 25mg Q6H IM PRN nausea/vomiting Advancing to full liquid diet, advance as tolerated Lipase WNL (3) Heart murmur ICD Codes: R01.1 - Cardiac murmur, unspecified Plan: Grade 1/6 systolic murmur appreciated along the left sternal border on Patient states that she has had bacteria in her blood in the past Unfortunately, blood cultures during this hospital stay were obtained after initiation of antibiotics Treating with antibiotics as above Echocardiogram showed no vegetations, ejection fraction of 50-55%, pulmonary hypertension of 56 mmHg Patient has a known history of sleep apnea, will inquire about use of CPAP machine VBG in the morning (4) Intractable vomiting with nausea ICD Codes: R11.2 - Nausea with vomiting, unspecified Status: Acute Plan: CMP wnl, reassuring. No further vomiting, nausea improving Discontinuing IV fluids as nursing staff reports patient drinking significant amount of fluids (apple juice, leeanne john, water) Creatinine 0.63 - has been WNL (5) Crohns disease ICD Codes: K50.90 - Crohn's disease, unspecified, without complications Status: Acute Plan: Possible acute flare of Crohn's disease. GI consulted Started IV Solu-Medrol 40 mg every 8 hours on 05/23 Pt reports multiple complications from her Crohn's. (6) UTI (urinary tract infection) ICD Codes: N39.0 - Urinary tract infection, site not specified Plan: UCx demonstrates MRSA in urine. Also growing gram-negative rods. Vancomycin 05/22/17 --> 05/25/17 Blood cultures have been negative, repeat urine cultures growing Sara Patient denies vaginal itching, and dysuria. Suspecting contaminant, will discontinue vancomycin Pt with hematuria, but also on her period at this time. (7) ELY (obstructive sleep apnea) ICD Codes: G47.33 - Obstructive sleep apnea (adult) (pediatric) Status: Chronic Plan: Continue CPAP HS. Pulmonary hypertension noted on echo (8) Localized pruritus ICD Codes: L29.9 - Pruritus, unspecified Status: Chronic Plan: Benadryl PRN (9) Abnormal abdominal CT scan ICD Codes: R93.5 - Abnormal findings on diagnostic imaging of other abdominal regions, including retroperitoneum Plan: Incidental finding of increasing areas of consolidation in both lung bases medially with scattered nodular densities in both lungs on abdomen/pelvis CT scan. Discussed these findings with patient. Plan for PET scan as an outpatient. Peripheral blood smear showing moderate hypochromic microcytic anemia Of note, patient has been treated with humira intermittently for years, which may increase incidence of lymphoma. (10) FEN Plan: IV fluids: Discontinuing IV fluids as patient is tolerating significant amount of fluid intake by mouth per nursing staff Full liquid diet Replete electrolytes as needed Lovenox 40 mg daily for DVT prophylaxis Problem Qualifiers (1) CAP (community acquired pneumonia): (2) Abdominal pain: Qualified Codes: R10.84 - Generalized abdominal pain (3) Intractable vomiting with nausea: Qualified Codes: R11.2 - Nausea with vomiting, unspecified (4) Crohns disease: Qualified Codes: K50.818 - Crohn's disease of both small and large intestine with other complication (5) UTI (urinary tract infection): Qualified Codes: N30.01 - Acute cystitis with hematuria Arpan Hunt MD R1 May 25, 2017 10:41
[2017-05-25] MEDS: RESP: ALBUTEROL 2.5 MG/IPRATROPIUM 0.5 MG NEB (PRN) INH ×2 (11:08→15:21)
[2017-05-25 12:00] VITALS: BP 150/82; PULSE 70; RESP 20; TEMP 97.8; O2SAT 96
[2017-05-25] MEDS ORDERED: ALTEPLASE RECOMBINANT 2 MG VIAL INTRACATH PRN (12:00)
[2017-05-25] MEDS ORDERED: PROMETHAZINE INJ 25 MG/ML VIAL IV-CENTRAL SCH (15:00)
[2017-05-25] MEDS ORDERED: PROMETHAZINE INJ 25 MG/ML VIAL IV-CENTRAL PRN (15:15)
[2017-05-25 16:00] VITALS: BP 164/89; PULSE 68; RESP 19; TEMP 97; O2SAT 97
[2017-05-25] MEDS: cefTRIAXone INJ 1,000 MG in SODIUM CHLORIDE 0.9% INJ 100 ML IV SCH (16:06)
[2017-05-25 20:00] VITALS: BP_SYST 163; BP_SYST 177; BP_DIAS 94; PULSE 68; RESP 22; TEMP 97.1; O2SAT 95
[2017-05-25] MEDS: ENOXAPARIN SODIUM 40 MG/0.4 ML SYRINGE SQ SCH (22:38)
[2017-05-26] VITALS: BP 134/86; PULSE 73; RESP 22; TEMP 96.9; O2SAT 92
[2017-05-26] MEDS: RESP: ALBUTEROL 2.5 MG/IPRATROPIUM 0.5 MG NEB (PRN) INH ×2 (01:43→16:06)
[2017-05-26 01:45] VITALS: O2SAT 93
[2017-05-26] MEDS: AZITHROMYCIN INJ 500 MG in SODIUM CHLOR 0.9% 250 ML INJ 250 ML IV SCH (02:42)
[2017-05-26] MEDS: PROMETHAZINE INJ 25 MG/ML VIAL IV-CENTRAL PRN ×3 (02:42→22:32)
[2017-05-26] MEDS: HYDROmorphone HCL PF 2 MG/ML VIAL IV PUSH PRN ×4 (02:42→22:33)
[2017-05-26] MEDS ORDERED: PHARMACY ORDERED LAB ONE (05:45)
[2017-05-26] MEDS: metroNIDAZOLE 500 MG INJ 100 ML IV SCH (06:22)
[2017-05-26] MEDS: diphenhydrAMINE HCL 50 MG/ML VIAL IV PUSH PRN (06:22)
[2017-05-26] MEDS: methylPREDNISolone SOD SUCC 40 MG/1 ML VIAL IV PUSH SCH (06:22)
[2017-05-26 07:19] LABS: AUTOMATED NEUTROPHIL # 10.3 TH/MM3 (1.8-7.7); BASOPHIL % 0.1 % (0.0-2.0); HEMATOCRIT 29.8 % (35.0-46.0); HEMOGLOBIN 9.5 GM/DL (11.6-15.3); LYMPH % 9.8 % (9.0-44.0); LYMPHOCYTE # 1.2 TH/MM3 (1.0-4.8); MEAN CELL VOLUME 78.9 FL (80.0-100.0); MEAN CORPUSCULAR HEMOGLOBIN 25.1 PG (27.0-34.0); MEAN CORPUSCULAR HGB CONC 31.9 % (32.0-36.0); MEAN PLATELET VOLUME 8.1 FL (7.0-11.0); MONO % 5.2 % (0.0-8.0); MONOCYTE # 0.6 TH/MM3 (0-0.9); NEUT % 84.9 % (16.0-70.0); PLATELET COUNT 443 TH/MM3 (150-450); RED BLOOD COUNT 3.78 MIL/MM3 (4.00-5.30); RED CELL DISTRIBUTION WIDTH 24.4 % (11.6-17.2); WHITE BLOOD COUNT 12.1 TH/MM3 (4.0-11.0)
[2017-05-26 07:32] LABS: BICARBONATE 29.9 MEQ/L (21.0-32.0); C-REACTIVE PROTEIN 0.57 MG/DL (0.00-0.30); CALCIUM 8.5 MG/DL (8.5-10.1); CREATININE 0.68 MG/DL (0.50-1.00)
[2017-05-26 08:00] VITALS: BP 177/97; PULSE 67; RESP 17; TEMP 96.5; O2SAT 94
[2017-05-26] MEDS: guaiFENesin E.R. 600 MG TAB PO SCH ×3 (09:00→21:00)
[2017-05-26] MEDS ORDERED: diphenhydrAMINE HCL 25 MG CAP PO PRN (09:15)
[2017-05-26] MEDS ORDERED: PROMETHAZINE HCL 25 MG TAB PO PRN (09:15)
[2017-05-26] MEDS: SODIUM CHLORIDE 0.9% FLUSH 10 ML FLUSH IV FLUSH SCH ×2 (09:56→21:00)
[2017-05-26] MEDS ORDERED: HYDROmorphone HCL 2 MG TAB PO PRN (10:30)
[2017-05-26 12:00] VITALS: BP 152/89; PULSE 71; RESP 18; TEMP 97.7; O2SAT 97
[2017-05-26] MEDS ORDERED: predniSONE 20 MG TAB PO SCH (12:00)
[2017-05-26] MEDS: FLUCONAZOLE 200 MG TAB PO SCH (12:00)
--- NOTE | 2017-05-26 13:02 | HHI.GIFU ---
Subjective Remarks Pt resting in bed in NAD. Says she threw up her pancakes and is upset that her diet was advanced and that she is being given PO pain meds instead of IV. SHe fired her RN. SHe is having continued abd pain and n/v. (Keiry Baca) Objective Vitals I&O Vital Signs Date Time Temp Pulse Resp B/P (MAP) Pulse Ox O2 Delivery O2 Flow Rate FiO2 05/26/17 08:00 96.5 67 17 177/97 (123) 94 05/26/17 01:45 93 05/26/17 00:00 96.9 73 22 134/86 (102) 92 05/25/17 20:00 97.1 68 22 163/94 (117) 95 05/25/17 16:00 97.0 68 19 164/89 (114) 97 I/O 05/25/17 05/25/17 05/25/17 05/26/17 05/26/17 05/26/17 07:00 15:00 23:00 07:00 15:00 23:00 Intake Total 1920 ml 240 ml 960 ml 1200 ml Output Total 900 ml Balance 1920 ml 240 ml 60 ml 1200 ml Intake Oral 1920 ml 240 ml 960 ml 1200 ml Output Urine Total 900 ml # Voids 3 # Bowel Movements 0 Laboratory Laboratory Tests Test 05/26/17 05:17 05/26/17 05:20 Blood Gas Puncture Site LINE Blood Gas Patient Temperature 98.6 Venous Blood pH 7.37 Venous Blood Partial Pressure CO2 50 Venous Blood Partial Pressure O2 36 Venous Blood HCO3 29 Venous Blood Oxygen Saturation 57 Venous Blood Oxygen Content 7.6 Venous Blood Base Excess 3.7 Blood Gas Inspired Oxygen 21 White Blood Count 12.1 Red Blood Count 3.78 Hemoglobin 9.5 Hematocrit 29.8 Mean Corpuscular Volume 78.9 Mean Corpuscular Hemoglobin 25.1 Mean Corpuscular Hemoglobin Concent 31.9 Red Cell Distribution Width 24.4 Platelet Count 443 Mean Platelet Volume 8.1 Neutrophils (%) (Auto) 84.9 Lymphocytes (%) (Auto) 9.8 Monocytes (%) (Auto) 5.2 Eosinophils (%) (Auto) 0.0 Basophils (%) (Auto) 0.1 Neutrophils # (Auto) 10.3 Lymphocytes # (Auto) 1.2 Monocytes # (Auto) 0.6 Eosinophils # (Auto) 0.0 Basophils # (Auto) 0.0 CBC Comment DIFF FINAL Differential Comment Blood Urea Nitrogen 12 Creatinine 0.68 Random Glucose 111 Calcium Level 8.5 Sodium Level 141 Potassium Level 3.8 Chloride Level 107 Carbon Dioxide Level 29.9 Anion Gap 4 Estimat Glomerular Filtration Rate 121 C-Reactive Protein 0.57 Date/Time Source Procedure Growth Status 05/21/17 13:25 Blood Peripheral Aerobic Blood Culture - Preliminary NO GROWTH IN 4 DAYS Resulted 05/21/17 13:25 Blood Peripheral Anaerobic Blood Culture - Final QNS - SEE AEROBE REPORT Resulted 05/22/17 23:00 Stool Stool Cryptosporidium Exam - Final NEGATIVE - NO CRYPTOSPORIDIUM ANTIGEN... Complete 05/22/17 23:00 Stool Stool Stool Pus (NISSA) - Final NO WBC'S SEEN Complete 05/22/17 23:00 Stool Stool Giardia Antigen (NISSA) - Final NEGATIVE - NO GIARDIA ANTIGEN DETECTE... Complete 05/22/17 23:00 Stool Stool Stool Occult Blood (NISSA) - Final HEMOCCULT NEGATIVE Complete 05/23/17 06:30 Sputum Expectorated Sputum Gram Stain - Final Complete 05/23/17 06:30 Sputum Expectorated Sputum Sputum Culture - Final HEAVY GROWTH NORMAL RESPIRATORY INA Complete 05/22/17 16:50 Urine Clean Catch Urine Culture - Final Sara Albicans Complete Imaging Last Impressions Chest X-Ray 05/23/17 0000 Signed Impressions: Service Date/Time: Tuesday, May 23, 2017 14:43 - CONCLUSION: Bibasilar parenchymal changes worse on the left. Wm Reece MD FACR Abdomen/Pelvis CT 05/21/17 1333 Signed Impressions: Service Date/Time: Sunday, May 21, 2017 15:47 - CONCLUSION: 1. Increasing areas of consolidation in both lung bases medially with scattered nodular densities in both lungs, right greater than left. Findings are nonspecific but a neoplastic process cannot be excluded. PET imaging is recommended for further evaluation. 2. There is some fullness in the hilar regions bilaterally. Findings are concerning for prominent hilar lymph nodes. These areas can be evaluated as well. 3. Stable bilateral adnexal cysts. Stable probable cyst off the left adrenal gland. 4. Stable postsurgical changes multiple surgical clips in the left abdomen. Right colostomy. Bradley Higginbotham MD Physical Exam HEENT: PERRL; normocephalic; atraumatic; no jaundice. CHEST: diminished CARDIAC: RRR ABDOMEN: Obese, Soft, diffuse TTP; bowel sounds active, colostomy with liquid watery stool EXTREMITIES: No clubbing, cyanosis, or edema. SKIN: Pale; no rash; no jaundice. POULTRY HELPER: No focal deficits; alert and oriented times three. (Keiry Baca) Assessment and Plan Plan ASSESSMENT - n/v, epigastric pain - unclear etiology. had normal EGD 12/2016. had colonoscopy 02/2017 not aware of abnormal findings. CT unremarkable for acute abd process. no blood in stool or emesis. may not be Crohn's flare, will hold off on giving steroids for now 05/23/17 no vomiting today symptoms could be secondary to her acute lung disease and her history of Crohn's disease, t he multiple antibiotics for the treatment of her pneumonia. recently tried Enytibio, but had allergic reaction to. 05/24/17 some improvement today. trial full liquids. stool less watery/clear 05/25/17 tolerating full liquid diet and eating alec crackers as well. Drinking plenty of fluids. still with abd pain. no n/v. watery stool in ostomy but pt drinking copious amounts apple juice 05/26/17 continued abd pain, n/v after eating pancakes but was toelrating sherbet and alec crackers yesterday. upset about diet being advanced and that she isn't getting IV pain meds. WBC elevated could be 2/2 steroids PLAN - EGD and colonoscopy Sunday - obtain consents - clear liquids sunday - NPO after midnight sunday night - Golytely sunday - full liquid diet -IV Flagyl -IV steroids - IV protonix - antiemetics PRN - supportive care pt seen by myself and Dr Elizondo and this note is written on her behalf (Keiry Baca) Physician Comments seen, examined agree with above obtain records pulmonary consult we will start tpn egd/colon sunday if negative ct enterography madina, clementina level, tb quantasure , celiac panel, food allergies , cortisol level mri adrenal gland recommended last admission-medical team to investigate (Phylicia Elizondo MD) Keiry Baca May 26, 2017 13:02 Phylicia Elizondo MD May 26, 2017 17:11
[2017-05-26] MEDS: metroNIDAZOLE 500 MG TAB PO SCH ×2 (14:00→22:00)
--- NOTE | 2017-05-26 14:11 | HHI.FPPN ---
Subjective Remarks No acute events overnight. Patient states that she ate several pancakes this morning and then proceeded to vomit. Prior to that she had been tolerating liquids. She is now complaining of an upset stomach but otherwise no chest pain or shortness of breath. Objective Vitals Vital Signs Date Time Temp Pulse Resp B/P (MAP) Pulse Ox O2 Delivery O2 Flow Rate FiO2 05/26/17 12:00 97.7 71 18 152/89 (110) 97 05/26/17 08:00 96.5 67 17 177/97 (123) 94 05/26/17 01:45 93 05/26/17 00:00 96.9 73 22 134/86 (102) 92 05/25/17 20:00 97.1 68 22 163/94 (117) 95 05/25/17 16:00 97.0 68 19 164/89 (114) 97 I/O 05/25/17 05/25/17 05/25/17 05/26/17 05/26/17 05/26/17 07:00 15:00 23:00 07:00 15:00 23:00 Intake Total 1920 ml 240 ml 960 ml 1200 ml Output Total 900 ml Balance 1920 ml 240 ml 60 ml 1200 ml Intake Oral 1920 ml 240 ml 960 ml 1200 ml Output Urine Total 900 ml # Voids 3 # Bowel Movements 0 Result Diagram: 05/26/17 0520 05/26/17 0520 Objective Remarks GENERAL: Obese female lying in bed in no acute distress. Breathing comfortably and speaking in full sentences. SKIN: Warm and dry. No rash. EYES: No scleral icterus. No injection or drainage. PERRLA. EOMI. HENT: Normocephalic. Atraumatic. MMM. NECK: No visible JVD or lymphadenopathy. CARDIOVASCULAR: Warm and well perfused. No murmur appreciated on today's exam. Regular rate and rhythm. RESPIRATORY: Normal respiratory effort. Clear to auscultation bilaterally with no wheezes appreciated GASTROINTESTINAL: Abdomen nondistended. Tender to palpation in the epigastric region. Ostomy in place with watery dark liquid stool - slightly more formed today. No rebound tenderness or guarding. MUSCULOSKELETAL: Strength grossly WNL. BACK: Without obvious deformity. NEURO/PSYCH: Afocal. Awake, alert, and oriented x3. A/P Assessment and Plan Patient is a 31 year old female with a PMH significant for Crohn's disease, ELY on CPAP, chronic sinusitis and anemia who presents today with cough, malaise, and abdominal pain and is admitted for pneumonia with possible Crohn's disease flare. Initial urine culture grew MRSA, repeat cultures grew Sara so suspecting contamination. Currently on Flagyl. Completed 5 day course of Rocephin, azithromycin Discharge Planning Discharge pending patient's ability to tolerate by mouth medications. There has been inconsistencies regarding patient's ability to eat/drink as she has reported difficulty with drinking fluids but nursing staff reporting she has had numerous amounts of soda/juices. There is questionable desire for secondary gain. Will attempt to transition to by mouth meds in hope of discharging in the next 1-2 days. Problem List: (1) CAP (community acquired pneumonia) ICD Codes: J18.9 - Pneumonia, unspecified organism Status: Acute Plan: CXR shows patchy basilar airspace disease most characteristic of bronchopneumonia. Patient is maintaining O2 sats on room air. Incidental finding of increasing areas of consolidation in both lung bases medially with scattered nodular densities in both lungs on abdomen/pelvis CT scan Febrile at home, no fevers since admission History of last Humira injection 1 year ago, not currently being treated Chest x-ray on admission showed patchy basilar airspace disease, repeat on 05/23 with no significant changes CRP 5.58/14, improved to 0.57 on 05/26 Plan: - PPD pending - Treated empirically with Rocephin and Azithromcyin. 05/22/17--> 05/26 - sputum cultures revealed normal respiratory domingo, urine antigens for strep and legionella negative - Blood cultures no growth in 4 days - Duonebs PRN - Respiratory panel pending - Has now completed 5 day course of antibiotics for community-acquired pneumonia , discontinuing Rocephin and azithromycin at this time (2) Abdominal pain ICD Codes: R10.9 - Unspecified abdominal pain Status: Acute Plan: Possibly secondary to Crohn's disease flare versus gastroenteritis Consulted GI for further assistance. Of note, patient has not yet established with a local GI physician. C Diff negative. Stool cultures negative. Lipase WNL Flagyl 500 mg po every 8h (initiated on 05/23) Received 3 days of IV Solu-Medrol, transitioning to prednisone 60 mg by mouth daily on 05/26 Pantoprazole 40 mg by mouth daily Continue home dose of Dilaudid 2mg IV q4H PRN pain Continue Phenergan 25mg Q6H IM PRN nausea/vomiting Attempted regular diet today, patient vomited after eating several pain takes. Resuming full liquid diet and advance as tolerated (3) Heart murmur ICD Codes: R01.1 - Cardiac murmur, unspecified Plan: Grade 1/6 systolic murmur appreciated along the left sternal border on Patient states that she has had bacteria in her blood in the past Unfortunately, blood cultures during this hospital stay were obtained after initiation of antibiotics Treating with antibiotics as above Echocardiogram showed no vegetations, ejection fraction of 50-55%, pulmonary hypertension of 56 mmHg Patient has a known history of sleep apnea, patient refusing use CPAP at night VBG showing PCO2 50, bicarbonate 29 (4) Intractable vomiting with nausea ICD Codes: R11.2 - Nausea with vomiting, unspecified Status: Acute Plan: CMP wnl, reassuring. Electrolytes remained within normal limits Patient had no vomiting until eating several pancakes this morning, resuming full liquid diet Had discontinued IV fluids as nursing staff reports patient drinking significant amount of fluids (apple juice, leeanne john, water) With reported vomiting this morning, will resume normal saline IV fluids at 84 mL per hour (5) Crohns disease ICD Codes: K50.90 - Crohn's disease, unspecified, without complications Status: Acute Plan: Possible acute flare of Crohn's disease. GI consulted Started IV Solu-Medrol 40 mg every 8 hours on 05/23, transition to by mouth steroids on 05/26 Pt reports multiple complications from her Crohn's. (6) UTI (urinary tract infection) ICD Codes: N39.0 - Urinary tract infection, site not specified Plan: UCx demonstrates MRSA in urine. Also growing gram-negative rods. Vancomycin 05/22/17 --> 05/25/17 Blood cultures have been negative, repeat urine cultures growing Sara Patient denies vaginal itching, and dysuria. Suspecting contaminant, will discontinue vancomycin Pt with hematuria, but also on her period at this time. (7) Vaginal itching ICD Codes: L29.8 - Other pruritus Plan: Patient reporting vaginal itching today Occasionally gets she said infections with antibiotic use His recent Urine cultures grew Sara Starting Diflucan 200 mg by mouth daily on 05/26 (8) ELY (obstructive sleep apnea) ICD Codes: G47.33 - Obstructive sleep apnea (adult) (pediatric) Status: Chronic Plan: Continue CPAP HS. Pulmonary hypertension noted on echo (9) Localized pruritus ICD Codes: L29.9 - Pruritus, unspecified Status: Chronic Plan: Benadryl PRN (10) Abnormal abdominal CT scan ICD Codes: R93.5 - Abnormal findings on diagnostic imaging of other abdominal regions, including retroperitoneum Plan: Incidental finding of increasing areas of consolidation in both lung bases medially with scattered nodular densities in both lungs on abdomen/pelvis CT scan. Discussed these findings with patient. Plan for PET scan as an outpatient. Peripheral blood smear showing moderate hypochromic microcytic anemia Of note, patient has been treated with humira intermittently for years, which may increase incidence of lymphoma. (11) FEN Plan: IV fluids: Normal saline IV fluids at 84 mL per hour Full liquid diet Replete electrolytes as needed Lovenox 40 mg daily for DVT prophylaxis Problem Qualifiers (1) CAP (community acquired pneumonia): (2) Abdominal pain: Qualified Codes: R10.84 - Generalized abdominal pain (3) Intractable vomiting with nausea: Qualified Codes: R11.2 - Nausea with vomiting, unspecified (4) Crohns disease: Qualified Codes: K50.818 - Crohn's disease of both small and large intestine with other complication (5) UTI (urinary tract infection): Qualified Codes: N30.01 - Acute cystitis with hematuria Arpan Hunt MD R1 May 26, 2017 14:11
[2017-05-26 16:00] VITALS: BP 177/96; PULSE 83; RESP 19; TEMP 97.5; O2SAT 98
[2017-05-26] MEDS: SODIUM CHLOR 0.9% 1000 ML INJ 1,000 ML IV SCH (16:38)
[2017-05-26 19:23] LABS: % SATURATION IRON PROFILE 14.3 % (20-50); IRON (FE) 51 MCG/DL (50-170); TOTAL IRON BINDING CAPACITY 357 MCG/DL (250-450)
[2017-05-26 19:48] LABS: FERRITIN 92 NG/ML (8-252)
[2017-05-26 20:00] VITALS: BP 137/107; PULSE 84; RESP 21; TEMP 98; O2SAT 97
[2017-05-26] MEDS: FAT EMULSION 20% INJ 250 ML (Daily over 8 hours) IV-CENTRAL SCH (21:22)
[2017-05-26] MEDS: CLINIMIX E 5/25 1000 mL- </= 42 mls/hr IV-CENTRAL SCH ×3 (21:22)
[2017-05-26] MEDS: ENOXAPARIN SODIUM 40 MG/0.4 ML SYRINGE SQ SCH (22:25)
[2017-05-27 00:01] VITALS: BP 163/102; PULSE 74; RESP 21; TEMP 97.5; O2SAT 93
[2017-05-27] MEDS: SODIUM CHLOR 0.9% 1000 ML INJ 1,000 ML IV SCH (01:55)
[2017-05-27] MEDS: HYDROmorphone HCL PF 2 MG/ML VIAL IV PUSH PRN ×6 (02:45→22:27)
[2017-05-27] MEDS: metroNIDAZOLE 500 MG TAB PO SCH ×2 (06:00→06:13)
[2017-05-27] MEDS: PROMETHAZINE INJ 25 MG/ML VIAL IV-CENTRAL PRN ×5 (06:12→22:28)
[2017-05-27 06:58] LABS: AUTOMATED NEUTROPHIL # 6.8 TH/MM3 (1.8-7.7); BASOPHIL % 0.4 % (0.0-2.0); EOSINOPHIL % 0.3 % (0.0-4.0); HEMATOCRIT 30.9 % (35.0-46.0); LYMPH % 17.4 % (9.0-44.0); LYMPHOCYTE # 1.7 TH/MM3 (1.0-4.8); MEAN CELL VOLUME 78.4 FL (80.0-100.0); MEAN CORPUSCULAR HEMOGLOBIN 25.5 PG (27.0-34.0); MEAN CORPUSCULAR HGB CONC 32.5 % (32.0-36.0); MEAN PLATELET VOLUME 7.7 FL (7.0-11.0); MONOCYTE # 1.2 TH/MM3 (0-0.9); NEUT % 69.9 % (16.0-70.0); PLATELET COUNT 402 TH/MM3 (150-450); RED BLOOD COUNT 3.93 MIL/MM3 (4.00-5.30); RED CELL DISTRIBUTION WIDTH 23.8 % (11.6-17.2); WHITE BLOOD COUNT 9.7 TH/MM3 (4.0-11.0)
[2017-05-27 07:25] LABS: BICARBONATE 29.4 MEQ/L (21.0-32.0); CALCIUM 8.5 MG/DL (8.5-10.1); CREATININE 0.7 MG/DL (0.50-1.00)
[2017-05-27] MEDS: MAGNESIUM CITRATE SOLN 300 ML BTL PO ONE ×2 (07:30→08:53)
[2017-05-27] MEDS ORDERED: BISACODYL EC 5 MG TABEC PO ONE (07:30)
[2017-05-27 08:00] VITALS: BP 145/94; PULSE 82; RESP 18; TEMP 96.1; O2SAT 96
--- NOTE | 2017-05-27 08:16 | HHI.FPPN ---
Subjective Remarks Patient feels better this morning. Patient states that her shortness of breath is improving, however her cough does remain. She was able to eat small bits of alec crackers yesterday, but still has nausea/vomiting. She is looking forward to her GI evaluation with endoscopy tomorrow to get answers. She denies any chest pain/shortness of breath/dizziness. No acute events overnight. Patient denies fever/chills. Objective Vitals Vital Signs Date Time Temp Pulse Resp B/P (MAP) Pulse Ox O2 Delivery O2 Flow Rate FiO2 05/27/17 00:01 97.5 74 21 163/102 (122) 93 05/26/17 20:00 98.0 84 21 137/107 (117) 97 05/26/17 16:00 97.5 83 19 177/96 (123) 98 05/26/17 12:00 97.7 71 18 152/89 (110) 97 05/26/17 08:00 96.5 67 17 177/97 (123) 94 I/O 05/26/17 05/26/17 05/26/17 05/27/17 05/27/17 05/27/17 07:00 15:00 23:00 07:00 15:00 23:00 Intake Total 1200 ml 1040 ml 1200 ml 250 ml Output Total 1 ml Balance 1200 ml 1039 ml 1200 ml 250 ml Intake Oral 1200 ml 340 ml 1200 ml IV Total 700 ml 250 ml Stool Total 1 ml # Voids 3 4 6 Result Diagram: 05/27/17 0605/27/17 0605 Objective Remarks GENERAL: Obese female lying in bed in no acute distress. Breathing comfortably and speaking in full sentences. SKIN: Warm and dry. No rash. EYES: No scleral icterus. No injection or drainage. PERRLA. EOMI. HENT: Normocephalic. Atraumatic. MMM. NECK: No visible JVD or lymphadenopathy. CARDIOVASCULAR: Warm and well perfused. No murmur appreciated on today's exam. Regular rate and rhythm. RESPIRATORY: Normal respiratory effort. Cough and wheezing on expiration GASTROINTESTINAL: Abdomen nondistended. Tender to palpation in the epigastric region. Ostomy in place with watery dark liquid stool - slightly more formed today. No rebound tenderness or guarding. MUSCULOSKELETAL: Strength grossly WNL. BACK: Without obvious deformity. NEURO/PSYCH: Afocal. Awake, alert, and oriented x3. A/P Assessment and Plan Patient is a 31 year old female with a PMH significant for Crohn's disease, ELY on CPAP, chronic sinusitis and anemia who presents today with cough, malaise, and abdominal pain and is admitted for pneumonia with possible Crohn's disease flare. GI following; plan for EGD and colonoscopy Sunday, starting TPN, ct enterography. Currently on Flagyl and steroids. Completed 5 day course of Rocephin, azithromycin Discharge Planning Discharge pending patient's ability to tolerate by mouth medications, complete GI evaluation. There has been inconsistencies regarding patient's ability to eat /drink as she has reported difficulty with drinking fluids but nursing staff reporting she has had numerous amounts of soda/juices. There is questionable desire for secondary gain. Problem List: (1) CAP (community acquired pneumonia) ICD Codes: J18.9 - Pneumonia, unspecified organism Status: Acute Plan: CXR shows patchy basilar airspace disease most characteristic of bronchopneumonia. Patient is maintaining O2 sats on room air. Incidental finding of increasing areas of consolidation in both lung bases medially with scattered nodular densities in both lungs on abdomen/pelvis CT scan Febrile at home, no fevers since admission History of last Humira injection 1 year ago, not currently being treated Chest x-ray on admission showed patchy basilar airspace disease, repeat on 05/23 with no significant changes CRP 5.58/14, improved to 0.57 on 05/26 Plan: - PPD pending - Treated empirically with Rocephin and Azithromcyin. 05/22/17--> 05/26 - sputum cultures revealed normal respiratory domingo, urine antigens for strep and legionella negative - Blood cultures no growth in 4 days - Duonebs PRN - Respiratory panel pending - Has now completed 5 day course of antibiotics for community-acquired pneumonia , discontinuing Rocephin and azithromycin at this time - GI has consulted pulmonology for lack of improvement? (2) Abdominal pain ICD Codes: R10.9 - Unspecified abdominal pain Status: Acute Plan: Possibly secondary to Crohn's disease flare versus gastroenteritis Consulted GI for further assistance. Of note, patient has not yet established with a local GI physician. C Diff negative. Stool cultures negative. Lipase WNL Appreciate GI rec's as follows Rx for Crohns exac per GI -Flagyl 500 mg IV every 8h (initiated on 05/22) -IV Solu-Medrol 40mg IV q8h . 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 GI consulted See plan above under abdominal pain (4) Vaginal itching ICD Codes: L29.8 - Other pruritus Plan: Patient reporting vaginal itching today Occasionally gets she said infections with antibiotic use His recent Urine cultures grew Sara Starting Diflucan 200 mg by mouth daily on 05/26 - Pt refusing PO meds (5) ELY (obstructive sleep apnea) ICD Codes: G47.33 - Obstructive sleep apnea (adult) (pediatric) Status: Chronic Plan: Patient refusing CPAP at this time Continue CPAP HS. Pulmonary hypertension noted on echo VBG PCO2 50 (6) Abnormal abdominal CT scan ICD Codes: R93.5 - Abnormal findings on diagnostic imaging of other abdominal regions, including retroperitoneum Plan: Incidental finding of increasing areas of consolidation in both lung bases medially with scattered nodular densities in both lungs on abdomen/pelvis CT scan. Discussed these findings with patient. Plan for PET scan as an outpatient. Peripheral blood smear showing moderate hypochromic microcytic anemia Of note, patient has been treated with humira intermittently for years, which may increase incidence of lymphoma. (7) Heart murmur ICD Codes: R01.1 - Cardiac murmur, unspecified Status: Resolved Plan: Grade 1/6 systolic murmur appreciated along the left sternal border on Patient states that she has had bacteria in her blood in the past Blood cx: negative x 4 days Unfortunately, blood cultures during this hospital stay were obtained after initiation of antibiotics Treated with antibiotics as above Echocardiogram showed no vegetations, ejection fraction of 50-55%, pulmonary hypertension of 56 mmHg Patient has a known history of sleep apnea, patient refusing use CPAP at night VBG showing PCO2 50, bicarbonate 29 (8) UTI (urinary tract infection) ICD Codes: N39.0 - Urinary tract infection, site not specified Plan: UCx demonstrates MRSA in urine. Also growing gram-negative rods. Vancomycin 05/22/17 --> 05/25/17 Blood cultures have been negative, repeat urine cultures growing Sara Patient denies vaginal itching, and dysuria. Suspecting contaminant, will discontinue vancomycin Pt with hematuria, but also on her period at this time. (9) FEN Plan: Fluid: 5 half-normal saline with KCl at 170 mL's per hour, encourage p.o. fluids as tolerated, TPN, with fat emulsion IV via central line calories Electrolytes: KCl with fluids as above Nutrition: Clear liquid diet as tolerated, TPN Protonix 40 mg IV twice daily for GI prophylaxis Lovenox 40 mg daily for DVT prophylaxis Problem Qualifiers (1) CAP (community acquired pneumonia): (2) Abdominal pain: Qualified Codes: R10.84 - Generalized abdominal pain (3) Crohns disease: Qualified Codes: K50.818 - Crohn's disease of both small and large intestine with other complication (4) UTI (urinary tract infection): Qualified Codes: N30.01 - Acute cystitis with hematuria Kimberlyn Shipman MD R2 May 27, 2017 08:16
--- NOTE | 2017-05-27 08:34 | HHI.FPPN ---
Addendum to progress note ADDENDUM Reason for addendum: Additonal documentation Additional information Off service note 31-year-old female, past medical history of Crohn's disease, ELY, chronic sinusitis, chronic anemia, presents with respiratory symptoms and abdominal pain , admitted for pneumonia and possible Crohn's disease flare. Patient has failed attempts at progressing diet, with continued nausea and vomiting. GI is following and is starting TPN today and doing a CT enterography. A CT enterography is negative GI will perform EGD/colonoscopy on Sunday/tomorrow. GI has continued her IV Flagyl and steroids for Crohn's exacerbation. Patient has completed a 5 day course of Rocephin and azithromycin for pneumonia. Respiratory olivares patient has been improving. GI has consulted pulmonology and we are not sure why. Blood cultures have been negative, she has been afebrile, and echocardiogram has confirmed there is no endocarditis. Original urine culture grew MRSA, however it was under 100,000 colony-forming units and is contaminant. Patient is also asymptomatic and repeat urine culture was negative. Kimberlyn Shipman MD R2 May 27, 2017 08:34
[2017-05-27] MEDS: SODIUM CHLORIDE 0.9% FLUSH 10 ML FLUSH IV FLUSH SCH (08:50)
[2017-05-27] MEDS: D5-1/2 NS + KCL 40 MEQ INJ 1,000 ML IV SCH ×3 (08:57→21:55)
[2017-05-27] MEDS: guaiFENesin E.R. 600 MG TAB PO SCH ×2 (09:00→21:44)
[2017-05-27] MEDS: FLUCONAZOLE 200 MG TAB PO SCH (09:00)
[2017-05-27] MEDS ORDERED: PANTOPRAZOLE SOD 40 MG DELAYED RELEASE TAB PO SCH (09:00)
[2017-05-27] MEDS: methylPREDNISolone SOD SUCC 40 MG/1 ML VIAL IV PUSH SCH ×3 (09:00→21:44)
[2017-05-27] MEDS: CHOLECALCIFEROL (VIT D3) LIQ 400 UNITS/ML 50 ML BOTTLE PO SCH (09:00)
[2017-05-27] MEDS: PANTOPRAZOLE SODIUM 40 MG VIAL IV PUSH SCH ×2 (09:02→21:44)
[2017-05-27] MEDS: metroNIDAZOLE 500 MG INJ 100 ML IV SCH ×2 (09:07→17:07)
[2017-05-27 12:00] VITALS: BP 122/60; PULSE 90; RESP 18; TEMP 97.5; O2SAT 97
[2017-05-27 16:00] VITALS: BP 150/97; PULSE 86; RESP 19; TEMP 97.2; O2SAT 94
[2017-05-27] MEDS ORDERED: PEG (High)/E-LYTE SOLN 4000 ML BTL PO ONE (16:00)
[2017-05-27] MEDS ORDERED: MAGNESIUM CITRATE SOLN 300 ML BTL PO ONE (16:00)
--- NOTE | 2017-05-27 16:05 | HHI.GIFU ---
Subjective Remarks Pt resting in bed in NAD. on TPN. tolerating chicken broth. Still c/o abd ttp. no vomiting today. (Keiry Baca) Objective Vitals I&O Vital Signs Date Time Temp Pulse Resp B/P (MAP) Pulse Ox O2 Delivery O2 Flow Rate FiO2 05/27/17 12:00 97.5 90 18 122/60 (80) 97 05/27/17 08:00 96.1 82 18 145/94 (111) 96 05/27/17 00:01 97.5 74 21 163/102 (122) 93 05/26/17 20:00 98.0 84 21 137/107 (117) 97 I/O 05/26/17 05/26/17 05/26/17 05/27/17 05/27/17 05/27/17 07:00 15:00 23:00 07:00 15:00 23:00 Intake Total 1200 ml 1040 ml 1200 ml 250 ml Output Total 1 ml Balance 1200 ml 1039 ml 1200 ml 250 ml Intake Oral 1200 ml 340 ml 1200 ml IV Total 700 ml 250 ml Stool Total 1 ml # Voids 3 4 6 Laboratory Laboratory Tests Test 05/27/17 06:05 05/27/17 06:07 White Blood Count 9.7 Red Blood Count 3.93 Hemoglobin 10.0 Hematocrit 30.9 Mean Corpuscular Volume 78.4 Mean Corpuscular Hemoglobin 25.5 Mean Corpuscular Hemoglobin Concent 32.5 Red Cell Distribution Width 23.8 Platelet Count 402 Mean Platelet Volume 7.7 Neutrophils (%) (Auto) 69.9 Lymphocytes (%) (Auto) 17.4 Monocytes (%) (Auto) 12.0 Eosinophils (%) (Auto) 0.3 Basophils (%) (Auto) 0.4 Neutrophils # (Auto) 6.8 Lymphocytes # (Auto) 1.7 Monocytes # (Auto) 1.2 Eosinophils # (Auto) 0.0 Basophils # (Auto) 0.0 CBC Comment DIFF FINAL Differential Comment Blood Urea Nitrogen 13 Creatinine 0.70 Random Glucose 91 Calcium Level 8.5 Sodium Level 141 Potassium Level 3.0 Chloride Level 104 Carbon Dioxide Level 29.4 Anion Gap 8 Estimat Glomerular Filtration Rate 117 Random Cortisol 1.0 Date/Time Source Procedure Growth Status 05/21/17 13:25 Blood Peripheral Aerobic Blood Culture - Final NO GROWTH IN 5 DAYS Complete 05/21/17 13:25 Blood Peripheral Anaerobic Blood Culture - Final QNS - SEE AEROBE REPORT Complete 05/22/17 23:00 Stool Stool Cryptosporidium Exam - Final NEGATIVE - NO CRYPTOSPORIDIUM ANTIGEN... Complete 05/22/17 23:00 Stool Stool Stool Pus (NISSA) - Final NO WBC'S SEEN Complete 05/22/17 23:00 Stool Stool Giardia Antigen (NISSA) - Final NEGATIVE - NO GIARDIA ANTIGEN DETECTE... Complete 05/22/17 23:00 Stool Stool Stool Occult Blood (NISSA) - Final HEMOCCULT NEGATIVE Complete 05/23/17 06:30 Sputum Expectorated Sputum Gram Stain - Final Complete 05/23/17 06:30 Sputum Expectorated Sputum Sputum Culture - Final HEAVY GROWTH NORMAL RESPIRATORY INA Complete 05/22/17 16:50 Urine Clean Catch Urine Culture - Final Sara Albicans Complete Imaging Last Impressions Chest X-Ray 05/23/17 0000 Signed Impressions: Service Date/Time: Tuesday, May 23, 2017 14:43 - CONCLUSION: Bibasilar parenchymal changes worse on the left. Wm Reece MD FACR Abdomen/Pelvis CT 05/21/17 1333 Signed Impressions: Service Date/Time: Sunday, May 21, 2017 15:47 - CONCLUSION: 1. Increasing areas of consolidation in both lung bases medially with scattered nodular densities in both lungs, right greater than left. Findings are nonspecific but a neoplastic process cannot be excluded. PET imaging is recommended for further evaluation. 2. There is some fullness in the hilar regions bilaterally. Findings are concerning for prominent hilar lymph nodes. These areas can be evaluated as well. 3. Stable bilateral adnexal cysts. Stable probable cyst off the left adrenal gland. 4. Stable postsurgical changes multiple surgical clips in the left abdomen. Right colostomy. Bradley Higginbotham MD Physical Exam HEENT: PERRL; normocephalic; atraumatic; no jaundice. CHEST: diminished CARDIAC: RRR ABDOMEN: Obese, Soft, diffuse TTP; bowel sounds active, colostomy with scant watery stool EXTREMITIES: No clubbing, cyanosis, or edema. SKIN: no rash; no jaundice. 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 (Keiry Baca) Assessment and Plan Plan ASSESSMENT - n/v, epigastric pain - unclear etiology. had normal EGD 12/2016. had colonoscopy 02/2017 not aware of abnormal findings. CT unremarkable for acute abd process. no blood in stool or emesis. may not be Crohn's flare, will hold off on giving steroids for now 05/23/17 no vomiting today symptoms could be secondary to her acute lung disease and her history of Crohn's disease, t he multiple antibiotics for the treatment of her pneumonia. recently tried Enytibio, but had allergic reaction to. 05/24/17 some improvement today. trial full liquids. stool less watery/clear 05/25/17 tolerating full liquid diet and eating alec crackers as well. Drinking plenty of fluids. still with abd pain. no n/v. watery stool in ostomy but pt drinking copious amounts apple juice 05/26/17 continued abd pain, n/v after eating pancakes but was toelrating sherbet and alec crackers yesterday. upset about diet being advanced and that she isn't getting IV pain meds. WBC elevated could be 05/11 steroids 05/27/17 continued abd pain. on TPN now, tolerating chicken broth. n/v seems improved. EGD colonoscopy tomorrow PLAN - EGD and colonoscopy Sunday - NPO after midnight tonight - mg citrate & dulcolax prep - full liquid diet -IV Flagyl -IV steroids - IV protonix - await cortisol, TSH, celiac panel, food allery panel, hep panel, TB, b 12, iron studies, vitamin D - antiemetics PRN - supportive care pt seen by myself and Dr Elizondo and this note is written on her behalf (Keiry Baca) Physician Comments seen, examined agree with above egd/colonoscopy via colostomy in am obtain records from [facility] -gi and surgery tpn await pulmonary consult (Phylicia Elizondo MD) Keiry Baca May 27, 2017 16:05 Phylicia Elizondo MD May 27, 2017 17:26
[2017-05-27] MEDS: NYSTATIN SUSP 500,000 U/5 ML CUP SWISH-SWAL SCH ×2 (17:07→21:43)
[2017-05-27 20:00] VITALS: BP 145/89; PULSE 84; RESP 17; TEMP 97.5; O2SAT 93
[2017-05-27] MEDS: FAT EMULSION 20% INJ 250 ML (Daily over 8 hours) IV-CENTRAL SCH (21:30)
[2017-05-27] MEDS: CLINIMIX E 5/25 1000 mL- </= 42 mls/hr IV-CENTRAL SCH ×3 (21:30)
[2017-05-27] MEDS ORDERED: LACTATED RINGER'S 1000 ML IV PRN (23:30)
[2017-05-28] VITALS: BP 162/96; PULSE 86; RESP 17; TEMP 97.8; O2SAT 94
[2017-05-28] MEDS: metroNIDAZOLE 500 MG INJ 100 ML IV SCH ×3 (00:18→16:51)
[2017-05-28] MEDS: PROMETHAZINE INJ 25 MG/ML VIAL IV-CENTRAL PRN ×5 (02:37→20:55)
[2017-05-28] MEDS: HYDROmorphone HCL PF 2 MG/ML VIAL IV PUSH PRN ×6 (02:37→20:56)
[2017-05-28] MEDS: D5-1/2 NS + KCL 40 MEQ INJ 1,000 ML IV SCH ×5 (04:12→23:34)
[2017-05-28] MEDS: methylPREDNISolone SOD SUCC 40 MG/1 ML VIAL IV PUSH SCH ×3 (04:12→20:54)
[2017-05-28 04:37] LABS: INTERNATIONAL NORMALIZED RATIO 1.1 RATIO; PROTHROMBIN TIME - PATIENT 10.8 SEC (9.8-11.6)
[2017-05-28 08:00] VITALS: BP 137/75; PULSE 89; RESP 19; TEMP 97.5; O2SAT 93
[2017-05-28] MEDS: RESP: ALBUTEROL 2.5 MG/IPRATROPIUM 0.5 MG NEB (PRN) INH (08:00)
[2017-05-28] MEDS: NYSTATIN SUSP 500,000 U/5 ML CUP SWISH-SWAL SCH ×4 (09:00→20:53)
[2017-05-28] MEDS: CHOLECALCIFEROL (VIT D3) LIQ 400 UNITS/ML 50 ML BOTTLE PO SCH (09:00)
[2017-05-28] MEDS: PANTOPRAZOLE SODIUM 40 MG VIAL IV PUSH SCH ×2 (09:00→20:52)
[2017-05-28] MEDS: guaiFENesin E.R. 600 MG TAB PO SCH ×2 (09:00→20:53)
[2017-05-28] MEDS: FLUCONAZOLE 200 MG TAB PO SCH (09:00)
--- NOTE | 2017-05-28 10:51 | HHI.FPPN ---
Subjective Remarks Patient seen and examined. No acute events overnight. Endorses continued upper abdominal pain, diffuse. Didn't drink all of the bowel prep yesterday, because it made her nauseous. Otherwise, tolerated liquid diet yesterday. Denies any fever/chills, chest pain, SOB, leg pain. Objective Vitals Vital Signs Date Time Temp Pulse Resp B/P (MAP) Pulse Ox O2 Delivery O2 Flow Rate FiO2 05/28/17 08:00 97.5 89 19 137/75 (95) 93 05/28/17 00:00 97.8 86 17 162/96 (118) 94 05/27/17 20:00 97.5 84 17 145/89 (107) 93 05/27/17 16:00 97.2 86 19 150/97 (114) 94 05/27/17 12:00 97.5 90 18 122/60 (80) 97 I/O 05/27/17 05/27/17 05/27/17 05/28/17 05/28/17 05/28/17 07:00 15:00 23:00 07:00 15:00 23:00 Intake Total 1200 ml 250 ml 340 ml 2080 ml Output Total 1 ml Balance 1200 ml 250 ml 339 ml 2080 ml Intake Oral 1200 ml 340 ml 480 ml IV Total 250 ml 1600 ml Stool Total 1 ml # Voids 6 6 6 Result Diagram: 05/27/17 0605 05/27/17 0605 Imaging Last Impressions Chest X-Ray 05/23/17 0000 Signed Impressions: Service Date/Time: Tuesday, May 23, 2017 14:43 - CONCLUSION: Bibasilar parenchymal changes worse on the left. Wm Reece MD FACR Abdomen/Pelvis CT 05/21/17 1333 Signed Impressions: Service Date/Time: Sunday, May 21, 2017 15:47 - CONCLUSION: 1. Increasing areas of consolidation in both lung bases medially with scattered nodular densities in both lungs, right greater than left. Findings are nonspecific but a neoplastic process cannot be excluded. PET imaging is recommended for further evaluation. 2. There is some fullness in the hilar regions bilaterally. Findings are concerning for prominent hilar lymph nodes. These areas can be evaluated as well. 3. Stable bilateral adnexal cysts. Stable probable cyst off the left adrenal gland. 4. Stable postsurgical changes multiple surgical clips in the left abdomen. Right colostomy. Bradley Higginbotham MD Objective Remarks GENERAL: Obese female lying in bed in no acute distress. Breathing comfortably and speaking in full sentences. CARDIOVASCULAR: Warm and well perfused. Regular rate and rhythm. RESPIRATORY: Normal respiratory effort. Cough and occasional wheezing on expiration GASTROINTESTINAL: Abdomen nondistended. Tender to palpation in the epigastric region. Ostomy in place with brown stool. No rebound tenderness or guarding. MUSCULOSKELETAL: Strength grossly WNL. BACK: Without obvious deformity. NEURO/PSYCH: Afocal. Awake, alert, and oriented x3. A/P Assessment and Plan Patient is a 31 year old female with a PMH significant for Crohn's disease, ELY on CPAP, chronic sinusitis and anemia who presents today with cough, malaise, and abdominal pain and is admitted for pneumonia with possible Crohn's disease flare. GI following; plan for EGD and colonoscopy Sunday, starting TPN, ct enterography. Currently on Flagyl and steroids. Completed 5 day course of Rocephin, azithromycin Discharge Planning Discharge pending patient's ability to tolerate by mouth medications, complete GI evaluation. There has been inconsistencies regarding patient's ability to eat /drink as she has reported difficulty with drinking fluids but nursing staff reporting she has had numerous amounts of soda/juices. There is questionable desire for secondary gain. Problem List: (1) Abdominal pain ICD Codes: R10.9 - Unspecified abdominal pain Status: Acute Plan: Possibly secondary to Crohn's disease flare versus gastroenteritis Consulted GI for further assistance. Of note, patient has not yet established with a local GI physician. C Diff negative. Stool cultures negative. Lipase WNL Appreciate GI rec's as follows -Flagyl 500 mg IV every 8h (initiated on 05/22) -IV Solu-Medrol 40mg IV q8h . -TPN (05/27 - ) -f/u EGD/colonoscopy 05/28 -f/u BETINA, TB, celiac panel, allergy panel, cortisol level Protonix 40mg IV q12h Continue home dose of Dilaudid 2mg IV q4H PRN pain Continue Phenergan 25mg Q4h IV-central line PRN nausea/vomiting (2) CAP (community acquired pneumonia) ICD Codes: J18.9 - Pneumonia, unspecified organism Status: Resolved Plan: CXR shows patchy basilar airspace disease most characteristic of bronchopneumonia. Patient is maintaining O2 sats on room air. Incidental finding of increasing areas of consolidation in both lung bases medially with scattered nodular densities in both lungs on abdomen/pelvis CT scan Febrile at home, no fevers since admission History of last Humira injection 1 year ago, not currently being treated Chest x-ray on admission showed patchy basilar airspace disease, repeat on 05/23 with no significant changes Plan: - PPD pending - Treated empirically with Rocephin and Azithromcyin. 05/22/17--> 05/26 - sputum cultures revealed normal respiratory domingo, urine antigens for strep and legionella negative - Blood cultures no growth in 4 days - Duonebs PRN - Respiratory panel pending - Has now completed 5 day course of antibiotics for community-acquired pneumonia , discontinuing Rocephin and azithromycin at this time - GI has consulted pulmonology (3) Crohns disease ICD Codes: K50.90 - Crohn's disease, unspecified, without complications Status: Acute Plan: Possible acute flare of Crohn's disease. GI consulted See plan above under abdominal pain (4) Vaginal itching ICD Codes: L29.8 - Other pruritus Status: Resolved Plan: Patient reporting vaginal itching Occasionally gets she said infections with antibiotic use His recent Urine cultures grew Sara Starting Diflucan 200 mg by mouth daily on 05/26 - Pt refusing PO meds (5) ELY (obstructive sleep apnea) ICD Codes: G47.33 - Obstructive sleep apnea (adult) (pediatric) Status: Chronic Plan: Patient refusing CPAP at this time Continue CPAP HS. Pulmonary hypertension noted on echo VBG PCO2 50 (6) Abnormal abdominal CT scan ICD Codes: R93.5 - Abnormal findings on diagnostic imaging of other abdominal regions, including retroperitoneum Plan: Incidental finding of increasing areas of consolidation in both lung bases medially with scattered nodular densities in both lungs on abdomen/pelvis CT scan. Discussed these findings with patient. Plan for PET scan as an outpatient. Peripheral blood smear showing moderate hypochromic microcytic anemia Of note, patient has been treated with humira intermittently for years, which may increase incidence of lymphoma. (7) Heart murmur ICD Codes: R01.1 - Cardiac murmur, unspecified Status: Resolved Plan: Grade 1/6 systolic murmur appreciated along the left sternal border on Patient states that she has had bacteria in her blood in the past Blood cx: negative x 4 days Echocardiogram showed no vegetations, ejection fraction of 50-55%, pulmonary hypertension of 56 mmHg Patient has a known history of sleep apnea, patient refusing use CPAP at night VBG showing PCO2 50, bicarbonate 29 (8) UTI (urinary tract infection) ICD Codes: N39.0 - Urinary tract infection, site not specified Plan: UCx demonstrates MRSA in urine. Also growing gram-negative rods. Vancomycin 05/22/17 --> 05/25/17 Blood cultures have been negative, repeat urine cultures growing Sara Patient denies vaginal itching, and dysuria. Suspecting contaminant, (9) FEN Plan: Fluid: [id number] saline with KCl at 170 mL's per hour, encourage p.o. fluids as tolerated, TPN, with fat emulsion IV via central line calories Electrolytes: KCl with fluids as above Nutrition: Clear liquid diet as tolerated, TPN Protonix 40 mg IV twice daily for GI prophylaxis Lovenox 40 mg daily for DVT prophylaxis Problem Qualifiers (1) Abdominal pain: Qualified Codes: R10.84 - Generalized abdominal pain (2) CAP (community acquired pneumonia): (3) Crohns disease: Qualified Codes: K50.818 - Crohn's disease of both small and large intestine with other complication (4) UTI (urinary tract infection): Qualified Codes: N30.01 - Acute cystitis with hematuria Pelon Bautista MD May 28, 2017 10:51
--- NOTE | 2017-05-28 11:15 | GIPROC ---
[facility] [address] [facility]. [facility], [address] EGD PROCEDURE REPORT EXAM DATE: 05/28/2017 PATIENT NAME: Yaneth Gan MR #: [id number] BIRTHDATE: 1985 ATTENDING: Anna Campos MD ORDER #: [id number] SENIOR STAFF PSYCHOLOGIST: Landy Palomares RN STATUS: inpatient INDICATIONS: The patient is a 31 yr old female here for an EGD due to iron deficiency anemia PROCEDURE PERFORMED: EGD w/ biopsy MEDICATIONS: None and Per Anesthesia. TOPICAL ANESTHETIC: CONSENT: The patient understands the risks and benefits of the procedure and understands that these risks include, but are not limited to: sedation, allergic reaction, infection, perforation and/or bleeding. Alternative means of evaluation and treatment include, among others: physical exam, x-rays, and/or surgical intervention. The patient elects to proceed with this endoscopic procedure. medical equipment was checked for proper function. Hand hygiene and appropriate measures for infection prevention was taken. After the risks, benefits and alternatives of the procedure were thoroughly explained, Informed consent was verified, confirmed and timeout was successfully executed by the treatment team. The patient was anesthetized with topical anesthesia and the EC-3490Li (Pedi C) endoscope was introduced through the mouth and advanced to the second portion of the duodenum. Retroflexed views revealed no abnormalities The gastroscope was then slowly withdrawn and removed. ESOPHAGUS: There was LA Class A esophagitis noted. A biopsy was performed using cold forceps. Sample sent for histology. STOMACH: There was mild gastritis in the gastric antrum. DUODENUM: The duodenal mucosa appeared normal. ADVERSE EVENTS: There were no complications. IMPRESSIONS: 1. There was LA Class A esophagitis noted; biopsy was performed 2. There was mild gastritis in the gastric antrum 3. Normal duodenal mucosa 4. Retroflexed views revealed no abnormalities RECOMMENDATIONS: 1. Await biopsy results. Biopsy results will not be ready for 7-10 days. If you don't hear from us in two weeks, call our office for biopsy results. 2. Continue PPI 3. Continue diflucan PATIENT CONDITION: stable DISPOSITION: Inpatient REPEAT EXAM: Return 1 year EGD pending biopsy results Anna Campos MD eSigned: Anna Campos MD 05/28/2017 11:14 AM cc: PATIENT NAME: Yaneth Gan MR#: [id number]
--- NOTE | 2017-05-28 11:17 | GIPROC ---
[facility] [address] [facility]. [facility], [address] COLONOSCOPY PROCEDURE REPORT EXAM DATE: 05/28/2017 PATIENT NAME: Yaneth Gan MR #: [id number] BIRTHDATE: 1985 ENDOSCOPIST: Anna Campos MD ORDER #: [id number] REAL ESTATE TRANSACTION MANAGER: Landy Palomares RN STATUS: inpatient INDICATIONS: The patient is a 31 yr old female here for a colonoscopy due to high risk patient with previously diagnosed Crohn's Disease PROCEDURE PERFORMED: Colonoscopy via stoma and biopsy MEDICATIONS: None and Per Anesthesia. PREP QUALITY: good PREP TYPE:GoLytely ESTIMATED BLOOD LOSS: None CONSENT: The patient understands the risks and benefits of the procedure and understands that these risks include, but are not limited to: sedation, allergic reaction, infection, perforation and/or bleeding. Alternative means of evaluation and treatment include, among others: physical exam, x-rays, and/or surgical intervention. The patient elects to proceed with this endoscopic procedure. medical equipment was checked for proper function. Hand hygiene and appropriate measures for infection prevention was taken. After the risks, benefits and alternatives of the procedure were thoroughly explained, Informed consent was verified, confirmed and timeout was successfully executed by the treatment team. A digital exam The Pentax EC-3490Li endoscope was introduced through the ileostomy and advanced to the ileum. The instrument was then slowly withdrawn as the colon was fully examined. COLON FINDINGS: Normal illeoscopy, random biopsies. The scope was then completely withdrawn from the patient and the procedure terminated. ADVERSE EVENTS: There were no complications. IMPRESSIONS: Normal illeoscopy, random biopsies RECOMMENDATIONS: 1. Await biopsy results. Biopsy results will not be ready for 7-10 days. If you don't hear from us in two weeks, call our office for results. 2. Continue surveillance RECALL: Return 1 year Colonoscopy Anna Campos MD eSigned: Anna Campos MD 05/28/2017 11:17 AM cc:
[2017-05-28] MEDS ORDERED: DO NOT ADM ANY ANTICOAGULANT DRUGS PRN (11:51)
[2017-05-28] MEDS ORDERED: SUCCINYLCHOLINE CHLORIDE 100 MG/5 ML SYRINGE IV PUSH ONE (12:00)
[2017-05-28] MEDS ORDERED: LIDOCAINE HCL 1% PF 5 ML SYRINGE OTHER ONE (12:00)
[2017-05-28] MEDS ORDERED: PROPOFOL 200 MG/20 ML AMP IV ONE (12:00)
[2017-05-28 13:34] LABS: HEPATITIS B SURFACE ANTIGEN NEGATIVE (NEGATIVE)
[2017-05-28 15:58] LABS: ANA SCREEN NEG (NEG)
[2017-05-28 16:00] VITALS: BP 136/94; PULSE 75; RESP 19; TEMP 96.8; O2SAT 96
[2017-05-28 20:00] VITALS: BP 130/79; PULSE 92; RESP 18; TEMP 97.8; O2SAT 94
[2017-05-28] MEDS: FAT EMULSION 20% INJ 250 ML (Daily over 8 hours) IV-CENTRAL SCH (20:51)
[2017-05-28] MEDS: CLINIMIX E 5/25 1000 mL- </= 42 mls/hr IV-CENTRAL SCH ×3 (20:52)
[2017-05-28] MEDS: ENOXAPARIN SODIUM 40 MG/0.4 ML SYRINGE SQ SCH (20:54)
[2017-05-29] VITALS: BP 139/81; PULSE 88; RESP 18; TEMP 97.4; O2SAT 95
[2017-05-29] MEDS: PROMETHAZINE INJ 25 MG/ML VIAL IV-CENTRAL PRN ×6 (00:45→20:52)
[2017-05-29] MEDS: metroNIDAZOLE 500 MG INJ 100 ML IV SCH ×3 (00:45→16:46)
[2017-05-29] MEDS: HYDROmorphone HCL PF 2 MG/ML VIAL IV PUSH PRN ×6 (00:46→20:54)
[2017-05-29 04:00] VITALS: BP 134/83; PULSE 95; RESP 18; TEMP 97.1; O2SAT 98
[2017-05-29] MEDS: methylPREDNISolone SOD SUCC 40 MG/1 ML VIAL IV PUSH SCH ×3 (04:55→20:54)
[2017-05-29] MEDS: D5-1/2 NS + KCL 40 MEQ INJ 1,000 ML IV SCH ×2 (07:34→13:27)
[2017-05-29 07:47] LABS: AUTOMATED NEUTROPHIL # 13.4 TH/MM3 (1.8-7.7); BASOPHIL % 0.3 % (0.0-2.0); HEMATOCRIT 31.5 % (35.0-46.0); HEMOGLOBIN 10.1 GM/DL (11.6-15.3); LYMPH % 8.6 % (9.0-44.0); LYMPHOCYTE # 1.4 TH/MM3 (1.0-4.8); MEAN CELL VOLUME 79.1 FL (80.0-100.0); MEAN CORPUSCULAR HEMOGLOBIN 25.4 PG (27.0-34.0); MEAN CORPUSCULAR HGB CONC 32.1 % (32.0-36.0); MEAN PLATELET VOLUME 7.9 FL (7.0-11.0); MONO % 6.3 % (0.0-8.0); NEUT % 84.8 % (16.0-70.0); PLATELET COUNT 425 TH/MM3 (150-450); RED BLOOD COUNT 3.98 MIL/MM3 (4.00-5.30); RED CELL DISTRIBUTION WIDTH 24.6 % (11.6-17.2); WHITE BLOOD COUNT 15.8 TH/MM3 (4.0-11.0)
[2017-05-29 08:00] VITALS: BP 128/80; PULSE 82; RESP 19; TEMP 96.9; O2SAT 96
[2017-05-29 08:04] LABS: BICARBONATE 27.8 MEQ/L (21.0-32.0); CREATININE 0.65 MG/DL (0.50-1.00)
[2017-05-29] MEDS: guaiFENesin E.R. 600 MG TAB PO SCH ×2 (08:36→21:04)
[2017-05-29] MEDS: NYSTATIN SUSP 500,000 U/5 ML CUP SWISH-SWAL SCH ×4 (08:36→21:04)
[2017-05-29] MEDS: FLUCONAZOLE 200 MG TAB PO SCH (08:37)
[2017-05-29] MEDS: CHOLECALCIFEROL (VIT D3) LIQ 400 UNITS/ML 50 ML BOTTLE PO SCH (08:37)
[2017-05-29] MEDS: PANTOPRAZOLE SODIUM 40 MG VIAL IV PUSH SCH ×2 (08:38→20:55)
[2017-05-29] MEDS: RESP: ALBUTEROL 2.5 MG/IPRATROPIUM 0.5 MG NEB (PRN) INH ×2 (08:59→19:49)
[2017-05-29 10:54] LABS: MITOGEN MINUS NIL RESULT ND (()); NIL RESULT ND (()); QUANTIFERON TB GOLD + RESULT ND (()); TB ANTIGEN MINUS NIL ND (())
[2017-05-29 12:00] VITALS: BP 142/88; PULSE 92; RESP 18; TEMP 96.5; O2SAT 98
--- NOTE | 2017-05-29 12:48 | HHI.GIFU ---
Subjective Remarks Pt resting in bed. No vomiting. Admits nausea. Abd pain somewhat improved from yesterday. Says she tolerated full liquid for breakfast and wants to try advancing diet. (Keiry Baca) Objective Vitals I&O Vital Signs Date Time Temp Pulse Resp B/P (MAP) Pulse Ox O2 Delivery O2 Flow Rate FiO2 05/29/17 08:00 96.9 82 19 128/80 (96) 96 05/29/17 04:00 97.1 95 18 134/83 (100) 98 05/29/17 00:00 97.4 88 18 139/81 (100) 95 05/28/17 20:00 97.8 92 18 130/79 (96) 94 05/28/17 16:00 96.8 75 19 136/94 (108) 96 I/O 05/28/17 05/28/17 05/28/17 05/29/17 05/29/17 05/29/17 07:00 15:00 23:00 07:00 15:00 23:00 Intake Total 2080 ml 500 ml 860 ml 100 ml Balance 2080 ml 500 ml 860 ml 100 ml Intake Oral 480 ml 760 ml IV Total 1600 ml 100 ml 100 ml Other 500 ml # Voids 6 6 2 # Bowel Movements 1 Laboratory Laboratory Tests Test 05/29/17 07:30 White Blood Count 15.8 Red Blood Count 3.98 Hemoglobin 10.1 Hematocrit 31.5 Mean Corpuscular Volume 79.1 Mean Corpuscular Hemoglobin 25.4 Mean Corpuscular Hemoglobin Concent 32.1 Red Cell Distribution Width 24.6 Platelet Count 425 Mean Platelet Volume 7.9 Neutrophils (%) (Auto) 84.8 Lymphocytes (%) (Auto) 8.6 Monocytes (%) (Auto) 6.3 Eosinophils (%) (Auto) 0.0 Basophils (%) (Auto) 0.3 Neutrophils # (Auto) 13.4 Lymphocytes # (Auto) 1.4 Monocytes # (Auto) 1.0 Eosinophils # (Auto) 0.0 Basophils # (Auto) 0.0 CBC Comment DIFF FINAL Differential Comment Blood Urea Nitrogen 11 Creatinine 0.65 Random Glucose 121 Calcium Level 8.0 Sodium Level 138 Potassium Level 4.1 Chloride Level 105 Carbon Dioxide Level 27.8 Anion Gap 5 Estimat Glomerular Filtration Rate 127 Date/Time Source Procedure Growth Status 05/21/17 13:25 Blood Peripheral Aerobic Blood Culture - Final NO GROWTH IN 5 DAYS Complete 05/21/17 13:25 Blood Peripheral Anaerobic Blood Culture - Final QNS - SEE AEROBE REPORT Complete 05/22/17 23:00 Stool Stool Cryptosporidium Exam - Final NEGATIVE - NO CRYPTOSPORIDIUM ANTIGEN... Complete 05/22/17 23:00 Stool Stool Stool Pus (NISSA) - Final NO WBC'S SEEN Complete 05/22/17 23:00 Stool Stool Giardia Antigen (NISSA) - Final NEGATIVE - NO GIARDIA ANTIGEN DETECTE... Complete 05/22/17 23:00 Stool Stool Stool Occult Blood (NISSA) - Final HEMOCCULT NEGATIVE Complete 05/23/17 06:30 Sputum Expectorated Sputum Gram Stain - Final Complete 05/23/17 06:30 Sputum Expectorated Sputum Sputum Culture - Final HEAVY GROWTH NORMAL RESPIRATORY INA Complete 05/22/17 16:50 Urine Clean Catch Urine Culture - Final Sara Albicans Complete Imaging Last Impressions Chest X-Ray 05/23/17 0000 Signed Impressions: Service Date/Time: Tuesday, May 23, 2017 14:43 - CONCLUSION: Bibasilar parenchymal changes worse on the left. Wm Reece MD FACR Abdomen/Pelvis CT 05/21/17 1333 Signed Impressions: Service Date/Time: Sunday, May 21, 2017 15:47 - CONCLUSION: 1. Increasing areas of consolidation in both lung bases medially with scattered nodular densities in both lungs, right greater than left. Findings are nonspecific but a neoplastic process cannot be excluded. PET imaging is recommended for further evaluation. 2. There is some fullness in the hilar regions bilaterally. Findings are concerning for prominent hilar lymph nodes. These areas can be evaluated as well. 3. Stable bilateral adnexal cysts. Stable probable cyst off the left adrenal gland. 4. Stable postsurgical changes multiple surgical clips in the left abdomen. Right colostomy. Bradley Higginbotham MD Physical Exam HEENT: PERRL; normocephalic; atraumatic; no jaundice. CHEST: diminished CARDIAC: RRR ABDOMEN: Obese, Soft, diffuse TTP; bowel sounds active, colostomy scant liquid brown stool EXTREMITIES: No clubbing, cyanosis, or edema. SKIN: no rash; no jaundice. COIN BOX COLLECTOR: No focal deficits; alert and oriented times three. (Keiry Baca FORM STRIPPER) Assessment and Plan Plan ASSESSMENT - n/v, epigastric pain - unclear etiology. had normal EGD 12/2016. had colonoscopy 02/2017 not aware of abnormal findings. CT unremarkable for acute abd process. no blood in stool or emesis. may not be Crohn's flare, will hold off on giving steroids for now 05/23/17 no vomiting today symptoms could be secondary to her acute lung disease and her history of Crohn's disease, t he multiple antibiotics for the treatment of her pneumonia. recently tried Enytibio, but had allergic reaction to. 05/24/17 some improvement today. trial full liquids. stool less watery/clear 05/25/17 tolerating full liquid diet and eating alec crackers as well. Drinking plenty of fluids. still with abd pain. no n/v. watery stool in ostomy but pt drinking copious amounts apple juice 05/26/17 continued abd pain, n/v after eating pancakes but was toelrating sherbet and alec crackers yesterday. upset about diet being advanced and that she isn't getting IV pain meds. WBC elevated could be 05/11 steroids 05/27/17 continued abd pain. on TPN now, tolerating chicken broth. n/v seems improved. EGD colonoscopy tomorrow 05/29/17 pain somewhat improved over yesterday. s/p EGD found esophagitis; normal ileoscopy. wants to advance diet. BETINA neg. PLAN - soft heart healthy diet -IV Flagyl -IV steroids - IV protonix - await cortisol, TSH, celiac panel, food allery panel, hep panel, TB, b 12, iron studies, vitamin D - antiemetics PRN - supportive care pt seen by myself and Dr Campos and this note is written on his behalf (Keiry Baca) Physician Comments Seen and examined with FORM STRIPPER, doing better. Advance diet as tolerated. Switch to po steroids. Gi fu upon dc. Will sign off, Thank you (Anna Campos MD) Keiry Baca May 29, 2017 12:48 Anna Campos MD May 29, 2017 15:05
[2017-05-29 16:00] VITALS: BP 156/89; PULSE 105; RESP 19; TEMP 95.8; O2SAT 95
--- NOTE | 2017-05-29 16:37 | HHI.FPPN ---
Subjective Remarks Delayed entry Patient seen and examined at bedside this morning. No acute events overnight. Nurse reports patient is tolerating po fluid hydration. Pt stated she is still having slight nausea. Objective Vitals Vital Signs Date Time Temp Pulse Resp B/P (MAP) Pulse Ox O2 Delivery O2 Flow Rate FiO2 05/29/17 16:00 95.8 105 19 156/89 (111) 95 05/29/17 12:00 96.5 92 18 142/88 (106) 98 05/29/17 08:00 96.9 82 19 128/80 (96) 96 05/29/17 04:00 97.1 95 18 134/83 (100) 98 05/29/17 00:00 97.4 88 18 139/81 (100) 95 05/28/17 20:00 97.8 92 18 130/79 (96) 94 I/O 05/28/17 05/28/17 05/28/17 05/29/17 05/29/17 05/29/17 07:00 15:00 23:00 07:00 15:00 23:00 Intake Total 2080 ml 500 ml 860 ml 100 ml Balance 2080 ml 500 ml 860 ml 100 ml Intake Oral 480 ml 760 ml IV Total 1600 ml 100 ml 100 ml Other 500 ml # Voids 6 6 2 # Bowel Movements 1 Result Diagram: 05/29/17 0730 05/29/17 0730 Objective Remarks GENERAL: Obese female lying in bed in no acute distress. Breathing comfortably and speaking in full sentences. CARDIOVASCULAR: Normal S1 and S2. Warm and well perfused. Regular rate and rhythm. RESPIRATORY: CTA BL. no cough or wheezing. GASTROINTESTINAL: Abdomen nondistended. Tender to palpation in the epigastric region. Ostomy in place with brown stool. No rebound tenderness or guarding. MUSCULOSKELETAL: Strength grossly WNL. BACK: Without obvious deformity. NEURO/PSYCH: Afocal. Awake, alert, and oriented x3. A/P Assessment and Plan Patient is a 31 year old female with a PMH significant for Crohn's disease, ELY on CPAP, chronic sinusitis and anemia who presents today with cough, malaise, and abdominal pain and is admitted for pneumonia with possible Crohn's disease flare. GI following; plan for EGD and colonoscopy Sunday, starting TPN, ct enterography. Currently on Flagyl and steroids. Completed 5 day course of Rocephin, azithromycin Discharge Planning Discharge pending patient's ability to tolerate by mouth medications, complete GI evaluation. There has been inconsistencies regarding patient's ability to eat /drink as she has reported difficulty with drinking fluids but nursing staff reporting she has had numerous amounts of soda/juices. There is questionable desire for secondary gain. Problem List: (1) Abdominal pain ICD Codes: R10.9 - Unspecified abdominal pain Status: Acute Plan: Possibly secondary to Crohn's disease flare versus gastroenteritis Consulted GI for further assistance. Of note, patient has not yet established with a local GI physician. C Diff negative. Stool cultures negative. Lipase WNL Appreciate GI rec's as follows -Flagyl 500 mg IV every 8h (initiated on 05/22) -IV Solu-Medrol 40mg IV q8h . -TPN (05/27 - ) -EGD/colonoscopy 05/28- esophagitis and Crohn's disease, normal ileoscopy -Esophagus bx: Acute suppurative esophagitis containing fungal hyphal yeast forms consistent with candidiasis - BETINA- neg celiac panel, food allergy panel- pending, cortisol- 1 -B12: 1107, elevated -25-OH vit D: 7 , Low, will supplement daily -TSH- 0.098 Protonix 40mg IV q12h Continue home dose of Dilaudid 2mg IV q4H PRN pain Continue Phenergan 25mg Q4h IV-central line PRN nausea/vomiting (2) Crohns disease ICD Codes: K50.90 - Crohn's disease, unspecified, without complications Status: Acute Plan: Possible acute flare of Crohn's disease. GI consulted See plan above under abdominal pain (3) Vaginal itching ICD Codes: L29.8 - Other pruritus Status: Resolved Plan: Patient reporting vaginal itching Occasionally gets she said infections with antibiotic use her recent Urine cultures grew Sara Starting Diflucan 200 mg by mouth daily on 05/26 -Pt refusing PO meds (4) ELY (obstructive sleep apnea) ICD Codes: G47.33 - Obstructive sleep apnea (adult) (pediatric) Status: Chronic Plan: Patient refusing CPAP at this time Continue CPAP HS. Pulmonary hypertension noted on echo VBG PCO2 50 (5) Abnormal abdominal CT scan ICD Codes: R93.5 - Abnormal findings on diagnostic imaging of other abdominal regions, including retroperitoneum Plan: Incidental finding of increasing areas of consolidation in both lung bases medially with scattered nodular densities in both lungs on abdomen/pelvis CT scan. Discussed these findings with patient. Plan for PET scan as an outpatient. Peripheral blood smear showing moderate hypochromic microcytic anemia Of note, patient has been treated with humira intermittently for years, which may increase incidence of lymphoma. (6) Heart murmur ICD Codes: R01.1 - Cardiac murmur, unspecified Status: Resolved Plan: Grade 1/6 systolic murmur appreciated along the left sternal border on Patient states that she has had bacteria in her blood in the past Blood cx: negative x 4 days Echocardiogram showed no vegetations, ejection fraction of 50-55%, pulmonary hypertension of 56 mmHg Patient has a known history of sleep apnea, patient refusing use CPAP at night, afebrile, hemodynamically stable VBG showing PCO2 50, bicarbonate 29 (7) UTI (urinary tract infection) ICD Codes: N39.0 - Urinary tract infection, site not specified Plan: UCx demonstrates MRSA in urine. Also growing gram-negative rods. Vancomycin 05/22/17 --> 05/25/17 Blood cultures have been negative, repeat urine cultures growing Sara Patient denies vaginal itching, and dysuria. Suspecting contaminant, (8) FEN Plan: Fluid: hold fluids for now, pt with good fluid intake. Electrolytes: WNL, replete as needed Nutrition:advance diet as tolerated Protonix 40 mg IV twice daily for GI prophylaxis Lovenox 40 mg daily for DVT prophylaxis Problem Qualifiers (1) Abdominal pain: Qualified Codes: R10.84 - Generalized abdominal pain (2) Crohns disease: Qualified Codes: K50.818 - Crohn's disease of both small and large intestine with other complication (3) UTI (urinary tract infection): Qualified Codes: N30.01 - Acute cystitis with hematuria Fozia Brown MD, R1 May 29, 2017 16:37
[2017-05-29 20:00] VITALS: BP 129/71; PULSE 85; RESP 18; TEMP 97.7; O2SAT 94
[2017-05-29] MEDS: FAT EMULSION 20% INJ 250 ML (Daily over 8 hours) IV-CENTRAL SCH (20:00)
[2017-05-29] MEDS ORDERED: ERGOCALCIFEROL (VIT D2) 50,000 UNIT CAP PO SCH (20:00)
[2017-05-29] MEDS: ENOXAPARIN SODIUM 40 MG/0.4 ML SYRINGE SQ SCH (21:08)
[2017-05-29] MEDS ORDERED: SODIUM CHLORIDE 0.9% FLUSH 10 ML FLUSH IV FLUSH PRN (23:15)
[2017-05-30] VITALS: BP 150/99; PULSE 98; RESP 18; TEMP 97.4; O2SAT 92
[2017-05-30] MEDS: PROMETHAZINE INJ 25 MG/ML VIAL IV-CENTRAL PRN ×3 (00:47→09:20)
[2017-05-30] MEDS: metroNIDAZOLE 500 MG INJ 100 ML IV SCH ×2 (00:48→09:22)
[2017-05-30] MEDS: HYDROmorphone HCL PF 2 MG/ML VIAL IV PUSH PRN ×3 (00:48→09:21)
[2017-05-30] MEDS: methylPREDNISolone SOD SUCC 40 MG/1 ML VIAL IV PUSH SCH (04:51)
[2017-05-30 06:43] LABS: AUTOMATED NEUTROPHIL # 12.8 TH/MM3 (1.8-7.7); BASOPHIL % 0.1 % (0.0-2.0); HEMATOCRIT 31.7 % (35.0-46.0); HEMOGLOBIN 10.1 GM/DL (11.6-15.3); LYMPH % 9.8 % (9.0-44.0); LYMPHOCYTE # 1.5 TH/MM3 (1.0-4.8); MEAN CELL VOLUME 79.6 FL (80.0-100.0); MEAN CORPUSCULAR HEMOGLOBIN 25.4 PG (27.0-34.0); MEAN CORPUSCULAR HGB CONC 31.9 % (32.0-36.0); MEAN PLATELET VOLUME 8.3 FL (7.0-11.0); MONO % 5.3 % (0.0-8.0); MONOCYTE # 0.8 TH/MM3 (0-0.9); NEUT % 84.8 % (16.0-70.0); PLATELET COUNT 420 TH/MM3 (150-450); RED BLOOD COUNT 3.98 MIL/MM3 (4.00-5.30); RED CELL DISTRIBUTION WIDTH 24.6 % (11.6-17.2); WHITE BLOOD COUNT 15.1 TH/MM3 (4.0-11.0)
[2017-05-30 07:05] LABS: ALBUMIN 2.7 GM/DL (3.4-5.0); ALT (GPT) 10 U/L (10-53); AST (GOT) 4 U/L (15-37); BICARBONATE 28.3 MEQ/L (21.0-32.0); BLOOD UREA NITROGEN 15 MG/DL (7-18); CALCIUM 7.9 MG/DL (8.5-10.1); CHLORIDE 105 MEQ/L (98-107); CREATININE 0.62 MG/DL (0.50-1.00); GLOMERULAR FILTRATION RATE 134 ML/MIN (>89); GLUCOSE,RANDOM 112 MG/DL (74-106); SODIUM (NA) 140 MEQ/L (136-145)
[2017-05-30 07:08] LABS: ALKALINE PHOSPHATASE 65 U/L (45-117); FREE T4 3.84 NG/DL (0.76-1.46); TOTAL BILIRUBIN ADULT 0.1 MG/DL (0.2-1.0); TOTAL PROTEIN 6.9 GM/DL (6.4-8.2)
[2017-05-30 08:00] VITALS: BP 140/93; PULSE 75; RESP 17; TEMP 98.3; O2SAT 95
[2017-05-30] MEDS: FLUCONAZOLE 200 MG TAB PO SCH (09:20)
[2017-05-30] MEDS: guaiFENesin E.R. 600 MG TAB PO SCH (09:20)
[2017-05-30] MEDS: PANTOPRAZOLE SODIUM 40 MG VIAL IV PUSH SCH (09:21)
[2017-05-30] MEDS: NYSTATIN SUSP 500,000 U/5 ML CUP SWISH-SWAL SCH (09:21)
[2017-05-30] MEDS ORDERED: ZOFR4SOL PO (11:29)
--- NOTE | 2017-05-30 11:31 | HHI.DCPOC ---
Discharge Care Plan Diagnosis: (1) Abdominal pain (2) Crohns disease (3) Vaginal itching (4) ELY (obstructive sleep apnea) (5) Heart murmur (6) UTI (urinary tract infection) Goals to Promote Your Health * To prevent worsening of your condition and complications * To maintain your health at the optimal level Directions to Meet Your Goals Take your medications as prescribed Follow your dietary instruction Follow activity as directed Keep your appointments as scheduled Take your immunizations and boosters as scheduled If your symptoms worsen call your PCP, if no PCP go to Urgent Care Center or Emergency Room Smoking is Dangerous to Your Health. Avoid second hand smoke Call the 24-hour hour crisis hotline for domestic abuse at Victoriano Jara MD, R3 May 30, 2017 11:31
--- NOTE | 2017-05-30 11:37 | HHI.FPPN ---
Subjective Remarks Patient seen and examined this morning. Afebrile vital signs stable. She reports some nausea this morning that improved with medication. She is tolerating a regular diet fine. She agrees with leaving the hospital today. Informed her that she will follow up with gastroenterology as an outpatient. Informed her that her port is working as the medication is currently going through that port at this time. Medically she is cleared for discharge and has no reason for staying in the hospital at this time. She will follow-up with her PCP and gastroenterology for further care. Objective Vitals Vital Signs Date Time Temp Pulse Resp B/P (MAP) Pulse Ox O2 Delivery O2 Flow Rate FiO2 05/30/17 08:00 98.3 75 17 140/93 (109) 95 05/30/17 00:00 97.4 98 18 150/99 (116) 92 05/29/17 20:00 97.7 85 18 129/71 (90) 94 05/29/17 16:00 95.8 105 19 156/89 (111) 95 05/29/17 12:00 96.5 92 18 142/88 (106) 98 I/O 05/29/17 05/29/17 05/29/17 05/30/17 05/30/17 05/30/17 07:00 15:00 23:00 07:00 15:00 23:00 Intake Total 100 ml 100 ml 1160 ml 100 ml Output Total 500 ml Balance 100 ml 100 ml 660 ml 100 ml Intake Oral 1060 ml IV Total 100 ml 100 ml 100 ml 100 ml Stool Total 500 ml # Voids 2 9 2 Result Diagram: 05/30/17 0600 05/30/17 0600 Imaging Last Impressions Chest X-Ray 05/23/17 0000 Signed Impressions: Service Date/Time: Tuesday, May 23, 2017 14:43 - CONCLUSION: Bibasilar parenchymal changes worse on the left. Wm Reece MD FACR Abdomen/Pelvis CT 05/21/17 1333 Signed Impressions: Service Date/Time: Sunday, May 21, 2017 15:47 - CONCLUSION: 1. Increasing areas of consolidation in both lung bases medially with scattered nodular densities in both lungs, right greater than left. Findings are nonspecific but a neoplastic process cannot be excluded. PET imaging is recommended for further evaluation. 2. There is some fullness in the hilar regions bilaterally. Findings are concerning for prominent hilar lymph nodes. These areas can be evaluated as well. 3. Stable bilateral adnexal cysts. Stable probable cyst off the left adrenal gland. 4. Stable postsurgical changes multiple surgical clips in the left abdomen. Right colostomy. Bradley Higginbotham MD Objective Remarks GENERAL: Obese female lying in bed in no acute distress. Breathing comfortably and speaking in full sentences. CARDIOVASCULAR: Normal S1 and S2. Warm and well perfused. Regular rate and rhythm. RESPIRATORY: CTA BL. no cough or wheezing. GASTROINTESTINAL: Abdomen nondistended. Tender to palpation in the epigastric region. Ostomy in place with brown stool. No rebound tenderness or guarding. MUSCULOSKELETAL: Strength grossly WNL. BACK: Without obvious deformity. NEURO/PSYCH: Afocal. Awake, alert, and oriented x3. Procedures 05/28/17: Panendoscopy with biopsy, colonoscopy via stoma with biopsy Medications and IVs Current Medications Medications (Trade) Dose Ordered Sig/Letty Route Start Time Stop Time Status Last Admin (Tylenol) 650 mg Q4H PRN PO 05/21/17 18:45 (Narcan Inj) 0.4 mg UNSCH PRN IV PUSH 05/21/17 18:45 (Duoneb Neb) 1 ampule Q4HR NEB PRN INH 05/21/17 19:00 05/29/17 19:49 (Lovenox Inj) 40 mg Q24H SQ 05/21/17 22:00 Future hold 05/29/17 21:08 (Mucinex Er) 600 mg BID PO 05/23/17 09:30 05/30/17 09:20 (Benadryl) 25 mg Q6H PRN PO 05/26/17 09:15 (Diflucan) 200 mg DAILY PO 05/26/17 12:00 05/30/17 09:20 (Phenergan Inj) 25 mg Q4H PRN IV-CENTRAL 05/26/17 14:00 05/30/17 09:20 (Dilaudid Pf Inj) 2 mg Q4H PRN IV PUSH 05/26/17 14:00 05/30/17 09:21 Multivitamins 10 ml/Folic Acid 1 mg/Amino Acids/ Electrolytes/ Dextrose 1,010.2 ml @ 42 mls/hr Q24H IV-CENTRAL 05/26/17 20:00 Future Hold 05/28/17 20:52 Fat Emulsion Intravenous 250 ml @ 31.25 mls/ hr Q24H IV-CENTRAL 05/26/17 20:00 05/28/17 20:51 Metronidazole 100 ml @ 100 mls/hr Q8H IV 05/27/17 09:00 05/30/17 09:22 (SoluMEDROL INJ) 40 mg Q8HR IV PUSH 05/27/17 08:30 05/30/17 04:51 (Protonix Inj) 40 mg Q12H IV PUSH 05/27/17 09:00 05/30/17 09:21 (Mycostatin Liq) 5 ml QID SWISH-SWAL 05/27/17 18:00 05/30/17 09:21 Lactated Ringer's 1,000 ml @ 30 mls/hr Q24H PRN IV 05/27/17 23:30 05/30/17 23:29 (Drisdol) 50,000 units Q7D PO 05/29/17 20:00 05/29/17 21:04 (Heparin Central Flush) 250 units UNSCH PRN IV FLUSH 05/29/17 23:15 (Heparin Central Flush) 500 units UNSCH IV FLUSH 05/29/17 23:15 (NS Flush) 5 ml UNSCH PRN IV FLUSH 05/29/17 23:15 05/30/17 04:52 A/P Assessment and Plan Patient is a 31 year old female with a PMH significant for Crohn's disease, ELY on CPAP, chronic sinusitis and anemia who presents today with cough, malaise, and abdominal pain and is admitted for pneumonia with possible Crohn's disease flare. GI has signed off as patient is cleared for discharge. Currently on Flagyl and steroids. Completed 5 day course of Rocephin, azithromycin Discharge Planning Discharge home today as patient is tolerating oral medications as well as diet. GI has signed off. Gastroenterology will follow as an outpatient. Medically stable no further workup needed in the hospital. Problem List: (1) Abdominal pain ICD Codes: R10.9 - Unspecified abdominal pain Status: Acute Plan: Possibly secondary to Crohn's disease flare versus gastroenteritis Gastroenterology has signed off. They will follow this patient as an outpatient. C Diff negative. Stool cultures negative. Lipase WNL Appreciate GI rec's as follows -Flagyl 500 mg IV every 8h (initiated on 05/22) -IV Solu-Medrol 40mg IV q8h, will discontinue, prednisone taper to be performed as an outpatient -EGD/colonoscopy 05/28- esophagitis and Crohn's disease, normal ileoscopy -Esophagus bx: Acute suppurative esophagitis containing fungal hyphal yeast forms consistent with candidiasis - BETINA- neg celiac panel, food allergy panel- pending, Protonix 40mg IV q12h Continue home dose of Dilaudid 2mg IV q4H PRN pain Continue Phenergan 25mg Q4h IV-central line PRN nausea/vomiting (2) Crohns disease ICD Codes: K50.90 - Crohn's disease, unspecified, without complications Status: Acute Plan: Possible acute flare of Crohn's disease. GI consulted See plan above under abdominal pain (3) Vaginal itching ICD Codes: L29.8 - Other pruritus Status: Resolved Plan: Patient reporting vaginal itching Occasionally gets she said infections with antibiotic use her recent Urine cultures grew Sara Starting Diflucan 200 mg by mouth daily on 05/26 -Pt refusing PO meds (4) ELY (obstructive sleep apnea) ICD Codes: G47.33 - Obstructive sleep apnea (adult) (pediatric) Status: Chronic Plan: Patient refusing CPAP at this time Continue CPAP HS. Pulmonary hypertension noted on echo VBG PCO2 50 (5) Abnormal abdominal CT scan ICD Codes: R93.5 - Abnormal findings on diagnostic imaging of other abdominal regions, including retroperitoneum Plan: Incidental finding of increasing areas of consolidation in both lung bases medially with scattered nodular densities in both lungs on abdomen/pelvis CT scan. Discussed these findings with patient. Plan for PET scan as an outpatient. Peripheral blood smear showing moderate hypochromic microcytic anemia Of note, patient has been treated with humira intermittently for years, which may increase incidence of lymphoma. (6) Heart murmur ICD Codes: R01.1 - Cardiac murmur, unspecified Status: Resolved Plan: Grade 1/6 systolic murmur appreciated along the left sternal border on Patient states that she has had bacteria in her blood in the past Blood cx: negative x 4 days Echocardiogram showed no vegetations, ejection fraction of 50-55%, pulmonary hypertension of 56 mmHg Patient has a known history of sleep apnea, patient refusing use CPAP at night, afebrile, hemodynamically stable VBG showing PCO2 50, bicarbonate 29 (7) UTI (urinary tract infection) ICD Codes: N39.0 - Urinary tract infection, site not specified Plan: UCx demonstrates MRSA in urine. Also growing gram-negative rods. Vancomycin 05/22/17 --> 05/25/17 Blood cultures have been negative, repeat urine cultures growing Sara Patient denies vaginal itching, and dysuria. Suspecting contaminant, (8) FEN Plan: Fluid: hold fluids for now, pt with good fluid intake. Electrolytes: WNL, replete as needed Nutrition: Tolerating regular diet Protonix 40 mg IV twice daily for GI prophylaxis Lovenox 40 mg daily for DVT prophylaxis Problem Qualifiers (1) Abdominal pain: Qualified Codes: R10.84 - Generalized abdominal pain (2) Crohns disease: Qualified Codes: K50.818 - Crohn's disease of both small and large intestine with other complication (3) UTI (urinary tract infection): Qualified Codes: N30.01 - Acute cystitis with hematuria Victoriano Jara MD, R3 May 30, 2017 11:37
[2017-05-30 11:53] LABS: HCV RNA PCR IU/ML LESS THAN 15 IU/mL (Not Detected)
[2017-05-30 12:00] VITALS: BP 138/87; PULSE 78; RESP 17; TEMP 97.8; O2SAT 95
[2017-05-30] MEDS ORDERED: METR1TAB76 PO (12:08)
[2017-05-30] MEDS ORDERED: PRED10PA2 PO (12:08)
[2017-05-30] MEDS ORDERED: PANT20 PO (12:11)
--- NOTE | 2017-05-30 13:44 | HHI.DS ---
Discharge Summary Admission Date May 21, 2017 at 18:49 Discharge Date: May 30, 2017 Admitting Diagnosis Intractible Vomiting/Abnormal CT findings/Bigeminy (1) Abdominal pain Diagnosis: Principal Plan: Possibly secondary to Crohn's disease flare versus gastroenteritis Gastroenterology has signed off. They will follow this patient as an outpatient. C Diff negative. Stool cultures negative. Lipase WNL Appreciate GI rec's as follows -Flagyl 500 mg IV every 8h (initiated on 05/22) -IV Solu-Medrol 40mg IV q8h, will discontinue, prednisone taper to be performed as an outpatient -EGD/colonoscopy 05/28- esophagitis and Crohn's disease, normal ileoscopy -Esophagus bx: Acute suppurative esophagitis containing fungal hyphal yeast forms consistent with candidiasis - BETINA- neg celiac panel, food allergy panel- pending, Protonix 40mg IV q12h Continue home dose of Dilaudid 2mg IV q4H PRN pain Continue Phenergan 25mg Q4h IV-central line PRN nausea/vomiting ICD Codes: R10.9 - Unspecified abdominal pain Status: Acute (2) Crohns disease Diagnosis: Secondary Plan: Possible acute flare of Crohn's disease. GI consulted See plan above under abdominal pain ICD Codes: K50.90 - Crohn's disease, unspecified, without complications Status: Acute (3) Vaginal itching Diagnosis: Secondary Plan: Patient reporting vaginal itching Occasionally gets she said infections with antibiotic use her recent Urine cultures grew Sara Starting Diflucan 200 mg by mouth daily on 05/26 -Pt refusing PO meds ICD Codes: L29.8 - Other pruritus Status: Resolved (4) ELY (obstructive sleep apnea) Diagnosis: Secondary Plan: Patient refusing CPAP at this time Continue CPAP HS. Pulmonary hypertension noted on echo VBG PCO2 50 ICD Codes: G47.33 - Obstructive sleep apnea (adult) (pediatric) Status: Chronic (5) Abnormal abdominal CT scan Diagnosis: Secondary Plan: Incidental finding of increasing areas of consolidation in both lung bases medially with scattered nodular densities in both lungs on abdomen/pelvis CT scan. Discussed these findings with patient. Plan for PET scan as an outpatient. Peripheral blood smear showing moderate hypochromic microcytic anemia Of note, patient has been treated with humira intermittently for years, which may increase incidence of lymphoma. ICD Codes: R93.5 - Abnormal findings on diagnostic imaging of other abdominal regions, including retroperitoneum (6) Heart murmur Diagnosis: Secondary Plan: Grade 1/6 systolic murmur appreciated along the left sternal border on Patient states that she has had bacteria in her blood in the past Blood cx: negative x 4 days Echocardiogram showed no vegetations, ejection fraction of 50-55%, pulmonary hypertension of 56 mmHg Patient has a known history of sleep apnea, patient refusing use CPAP at night, afebrile, hemodynamically stable VBG showing PCO2 50, bicarbonate 29 ICD Codes: R01.1 - Cardiac murmur, unspecified Status: Resolved (7) UTI (urinary tract infection) Diagnosis: Secondary Plan: UCx demonstrates MRSA in urine. Also growing gram-negative rods. Vancomycin 05/22/17 --> 05/25/17 Blood cultures have been negative, repeat urine cultures growing Sara Patient denies vaginal itching, and dysuria. Suspecting contaminant, ICD Codes: N39.0 - Urinary tract infection, site not specified Procedures 05/28/17: Panendoscopy with biopsy, colonoscopy via stoma with biopsy Brief History Patient is a 31 year old female with a PMH significant for Crohn's disease, ELY on CPAP, chronic sinusitis and anemia who presents today for "feeling awful." She has felt this way for the past couple weeks. Symptoms include poor appetite , fatigue, nausea, vomiting, malaise, sinus pressure and headache. Symptoms started with pain on the right side of her face which has now expanded to her whole face. Her sinus symptoms initially improved but then worsened. Symptoms started about 3 weeks ago. She has a history of chronic sinus issues. She also notes a cough for the past three weeks. The cough is occasionally dry and occasionally productive of sputum with streaks of blood. Her cough has been progressively worsening and she has been experiencing shortness of breath for the last few days. She has chest soreness from coughing. Her throat also feels itchy and scratchy. She thinks she has lost 10-12 lbs over the past three weeks because she is having trouble keeping solids or liquids down. She has emesis every time she tries to eat or drink anything. She had three episodes of emesis today without blood or bile. She has had fevers on and off for the last few days and night sweats. Her temperature last night was 100.7. She has been taking Tylenol with improvement in fever. She does not have a local PCP, but she was able to get a prescription for amoxicillin for her sinus issues which she took for 1 day but it caused her to have an upset stomach so she stopped taking it. Her last PCP visit was in April. She does not have a local GI. She has an ileostomy bag. No sick contacts. She did not get the flu shot this year. She also notes abdominal pain for the past few weeks in upper abdomen. The pain is described as a stabbing pain. She also notes that her bowels have foul odor and are more liquid than usual. There has been no change in color. She has not been able to take her Dilaudid due to nausea and vomiting. She has not taken any medications for the last 3-4 days. Last seen in early April by GI in [place]. She is going to be starting Stelara for Crohn's disease and was previously on Humira. Her last dose of Humira was in April 2016. She also has a port which was placed in March 2016. CBC/BMP: 05/30/17 0600 05/30/17 0600 Significant Findings Laboratory Tests Test 05/28/17 04:14 05/29/17 07:30 05/29/17 19:30 05/30/17 06:00 White Blood Count 15.8 TH/MM3 (4.0-11.0) 15.1 TH/MM3 (4.0-11.0) Red Blood Count 3.98 MIL/MM3 (4.00-5.30) 3.98 MIL/MM3 (4.00-5.30) Hemoglobin 10.1 GM/DL (11.6-15.3) 10.1 GM/DL (11.6-15.3) Hematocrit 31.5 % (35.0-46.0) 31.7 % (35.0-46.0) Mean Corpuscular Volume 79.1 FL (80.0-100.0) 79.6 FL (80.0-100.0) Mean Corpuscular Hemoglobin 25.4 PG (27.0-34.0) 25.4 PG (27.0-34.0) Red Cell Distribution Width 24.6 % (11.6-17.2) 24.6 % (11.6-17.2) Neutrophils (%) (Auto) 84.8 % (16.0-70.0) 84.8 % (16.0-70.0) Lymphocytes (%) (Auto) 8.6 % (9.0-44.0) Neutrophils # (Auto) 13.4 TH/MM3 (1.8-7.7) 12.8 TH/MM3 (1.8-7.7) Monocytes # (Auto) 1.0 TH/MM3 (0-0.9) Random Glucose 121 MG/DL (74-106) 112 MG/DL (74-106) Calcium Level 8.0 MG/DL (8.5-10.1) 7.9 MG/DL (8.5-10.1) Mean Corpuscular Hemoglobin Concent 31.9 % (32.0-36.0) Albumin 2.7 GM/DL (3.4-5.0) Aspartate Amino Transf (AST/SGOT) 4 U/L (15-37) Total Bilirubin 0.1 MG/DL (0.2-1.0) Free Thyroxine 3.84 NG/DL (0.76-1.46) Imaging Last Impressions Chest X-Ray 05/23/17 0000 Signed Impressions: Service Date/Time: Tuesday, May 23, 2017 14:43 - CONCLUSION: Bibasilar parenchymal changes worse on the left. Wm Reece MD FACR Abdomen/Pelvis CT 05/21/17 1333 Signed Impressions: Service Date/Time: Sunday, May 21, 2017 15:47 - CONCLUSION: 1. Increasing areas of consolidation in both lung bases medially with scattered nodular densities in both lungs, right greater than left. Findings are nonspecific but a neoplastic process cannot be excluded. PET imaging is recommended for further evaluation. 2. There is some fullness in the hilar regions bilaterally. Findings are concerning for prominent hilar lymph nodes. These areas can be evaluated as well. 3. Stable bilateral adnexal cysts. Stable probable cyst off the left adrenal gland. 4. Stable postsurgical changes multiple surgical clips in the left abdomen. Right colostomy. Bradley Higginbotham MD PE at Discharge GENERAL: Obese female lying in bed in no acute distress. Breathing comfortably and speaking in full sentences. CARDIOVASCULAR: Normal S1 and S2. Warm and well perfused. Regular rate and rhythm. RESPIRATORY: CTA BL. no cough or wheezing. GASTROINTESTINAL: Abdomen nondistended. Tender to palpation in the epigastric region. Ostomy in place with brown stool. No rebound tenderness or guarding. MUSCULOSKELETAL: Strength grossly WNL. BACK: Without obvious deformity. NEURO/PSYCH: Afocal. Awake, alert, and oriented x3. Hospital Course Ms. Gan Pt Condition on Discharge: Stable Discharge Disposition: Discharge Home Discharge Instructions DIET: Follow Instructions for: As Tolerated, No Restrictions Activities you can perform: Regular-No Restrictions Follow up Referrals: Gastroenterology - 1 Week with Anna Campos MD PCP Follow-up - 1 Week New Orders: PET, WHOLE BODY - 1 Week New Medications: Metronidazole (Metronidazole) 500 Mg Tab 500 MG PO QID for Infection, #8 TAB 0 Refills Ondansetron Liq (Zofran Liq) 4 Mg/5 Ml Soln 4 MG PO Q6H PRN for NAUSEA OR VOMITING, #30 ML 0 Refills Pantoprazole (Protonix) 20 Mg Tab 20 MG PO DAILY for Reflux, #30 TAB 0 Refills Prednisone (48) 10 mg tab Dose Pack (Prednisone (48) 10 mg tab Dose Pack) 10 Mg Dspk 10 MG PO DIRECTED for Inflammation, #1 DSPK 0 Refills Continued Medications: Adalimumab 2-Pack Inj (Humira 2-Pack Inj) 40 Mg/0.8 Ml Syr 40 MG SQ Q14D, #1 KIT 0 Refills Hydromorphone (Dilaudid) 2 Mg Tab 2 MG PO Q4H PRN for Pain Management, TAB 0 Refills Promethazine (Phenergan) 25 Mg Tablet 25 MG PO Q6H PRN for NAUSEA OR VOMITING, #20 TAB 0 Refills Ranitidine (Zantac) 150 Mg Tab 150 MG PO DAILY for Reduce Stomach Acid, #30 TAB 0 Refills Fozia Brown MD, R1 May 30, 2017 13:44
[2017-05-30 13:54] LABS: HEP B DNA R1 LESS THAN 20 IU/mL (Not Detected); HEP B DNA R2 LESS THAN 1.30 (Not Detected)
[2017-05-30 15:53] LABS: ENDOMYSIAL AB SCREEN ND (NEGATIVE); ENDOMYSIAL AB TITER ND (<1:5)
[2017-05-30 19:53] LABS: CODFISH CLASS 0; CODFISH IGE LESS THAN 0.10 kU/L; COWS MILK CLASS 0; COWS MILK IGE LESS THAN 0.10 kU/L; EGG WHITE 0.15 kU/L; PEANUT LESS THAN 0.10 kU/L; PEANUT CLASS 0; SCALLOP 0.72 kU/L; SCALLOP CLASS 2; SESAME SEED LESS THAN 0.10 kU/L; SESAME SEED CLASS 0; SHRIMP LESS THAN 0.10 kU/L; SHRIMP CLASS 0; SOYBEAN LESS THAN 0.10 kU/L; SOYBEAN CLASS 0; WALNUT LESS THAN 0.10 kU/L; WALNUT CLASS 0; WHEAT LESS THAN 0.10 kU/L; WHEAT CLASS 0
== END 2017-05-30 12:47 | disposition home or self-care (01) | DRG 689 ==
LOC: NEPD 13:10 → NEDA 17:43 → OBSVTOIN 18:49 → N07A 21:23
PROVIDERS: ADMIT Family Medicine; ATTEND Family Medicine
PROC: 0DB38ZX Excision of Lower Esophagus, Via Natural or Artificial Opening Endoscopic, Diagnostic (ICD-10-PCS; principal; 2017-05-21)
PROC: 0DBB8ZX Excision of Ileum, Via Natural or Artificial Opening Endoscopic, Diagnostic (ICD-10-PCS; 2017-05-21)
DX: N30.01 Acute cystitis with hematuria (principal); J18.0 Bronchopneumonia, unspecified organism; B37.81 Candidal esophagitis; K50.80 Crohn's disease of both small and large intestine without complications; I27.20 Pulmonary hypertension, unspecified; Z68.43 Body mass index [BMI] 50.0-59.9, adult; B37.49 Other urogenital candidiasis; E66.01 Morbid (severe) obesity due to excess calories; D50.9 Iron deficiency anemia, unspecified; R00.8 Other abnormalities of heart beat; J32.1 Chronic frontal sinusitis; K29.70 Gastritis, unspecified, without bleeding; G47.33 Obstructive sleep apnea (adult) (pediatric); L29.9 Pruritus, unspecified; I49.3 Ventricular premature depolarization; R04.0 Epistaxis; R01.1 Cardiac murmur, unspecified; E87.6 Hypokalemia; B95.62 Methicillin resistant Staphylococcus aureus infection as the cause of diseases classified elsewhere; Z88.5 Allergy status to narcotic agent; Z93.2 Ileostomy status
CPT/HCPCS: 71046; 74177; 80048; 80053; 80202; 80307; 81001; 82164; 82272; 82306; 82533; 82550; 82552; 82607; 82728; 82784; 82805; 83516; 83540; 83550; 83605; 83690; 84439; 84443; 84484; 85025; 85060; 85610; 85730; 86003; 86038; 86140; 86403; 86480; 87015; 87040; 87070; 87086; 87116; 87147; 87186; 87205; 87206; 87328; 87329; 87340; 87449; 87493; 87506; 87517; 87522; 87804; 88305; 93005; 93306; 94150; 94640; 94664; 94667; 94668; 99285; C9113; J0330; J0456; J0696; J1170; J1200; J1642; J1650; J2550; J2920; J2997; J3370; J3480; J7030; J7040; J7050; Q9967